=== PATIENT | female | born 1945 | race Caucasian/White ===

== ENCOUNTER → 2016-08-27 | Outpatient (CLI) | payer MEDICARE, OTHER ==
--- NOTE | 2016-08-27 09:34 | CT ---
EXAMINATION TYPE: CT brain wo con DATE OF EXAM: 08/27/2016 7:39 AM COMPARISON: NONE HISTORY: 71-year-old female with migraine headaches TECHNIQUE: Examination was done in axial plane without intravenous contrast. Coronal and sagittal r econstructions performed. CT DLP: 1098.80 mGycm Automated exposure control for dose reduction was used. FINDINGS: There is a prior left lateral craniotomy flap. Mild cerebral cortical volume loss. 2.5 cm area of CSF prominence along the median, left paramedian r etrocerebellar region. There is no evidence of acute intracranial hemorrhage, acute ischemic changes, mass effect, or extra -axial fluid collection. There is no effacement of cerebral sulci or basal subarachnoid cisterns. T here is no hydrocephalus. There is no midline shift. Hatch-white matter distinction is preserved. Paranasal sinuses and mastoid air cells are well pneumatized. Orbits and globes are intact. Rightward nasal septal deviation noted IMPRESSION: 1. Prior left lateral craniotomy flap. Clinically correlate. No acute intracranial abnormality seen. 2. Mild generalized cerebral cortical atrophy. 3. 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
== END | disposition home or self-care (01) ==
LOC: RADCTMAIN 07:11
PROVIDERS: ATTEND Family Medicine
DX: G31.9 Degenerative disease of nervous system, unspecified (principal); G43.909 Migraine, unspecified, not intractable, without status migrainosus
CPT/HCPCS: 70450

== ENCOUNTER → 2018-01-24 | Outpatient (CLI) | payer MEDICARE, OTHER ==
[2018-01-24 09:53] LABS: HCT 41.3 % (34.0-46.0); Hypochromasia Slight; MCHC 31.5 g/dL (31.0-37.0); MCV 85.8 fL (80.0-100.0); Mean Platelet Volume 7.4; Platelet Count 232 k/uL (150-450); RBC 4.82 m/uL (3.80-5.40); RDW 14.2 % (11.5-15.5); WBC 6.7 k/uL (3.8-10.6)
[2018-01-24 10:07] LABS: ALT 16 U/L (9-52); AST 22 U/L (14-36); Albumin 3.7 g/dL (3.5-5.0); Alkaline Phosphatase 134 U/L (38-126); Anion Gap 9 mmol/L; Blood Urea Nitrogen 16 mg/dL (7-17); Calcium 9.3 mg/dL (8.4-10.2); Carbon Dioxide 27 mmol/L (22-30); Chloride 107 mmol/L (98-107); Cholesterol 166 mg/dL (<200); Glucose 87 mg/dL (74-99); HDL Cholesterol 48 mg/dL (40-60); LDL Cholesterol,Calculated 90 mg/dL (0-99); Potassium 4.3 mmol/L (3.5-5.1); Sodium 143 mmol/L (137-145); Total Bilirubin 0.5 mg/dL (0.2-1.3); Total Protein 6.9 g/dL (6.3-8.2); Triglycerides 141 mg/dL (<150)
[2018-01-24 10:23] LABS: T4, Free (Free Thyroxine) 1.13 ng/dL (0.78-2.19)
[2018-01-24 18:16] LABS: Hemoglobin A1C 5.7 % (4.0-6.0)
== END | disposition home or self-care (01) ==
LOC: LABWHC1 08:17
PROVIDERS: ATTEND Family Medicine
DX: E78.5 Hyperlipidemia, unspecified (principal); E11.9 Type 2 diabetes mellitus without complications; E66.01 Morbid (severe) obesity due to excess calories; I10 Essential (primary) hypertension
CPT/HCPCS: 36415; 80053; 80061; 83036; 84439; 84443; 85027

== ENCOUNTER → 2022-05-08 | Outpatient (CLI) | payer MEDICARE ==
--- NOTE | 2022-05-08 11:45 | MM ---
Reason for Exam: Screening (asymptomatic). Last mammogram was performed 10 year(s) and 0 month(s) ago. Patient History: Menarche at age 14. First Full-Term at age 22. Hysterectomy at age 34. Patient used Estrogen for 2 years. Maternal aunt had breast cancer. Maternal aunt had breast cancer. Maternal aunt had breast cancer. Risk Values: Pat 5 year model risk: 1.6%. NCI Lifetime model risk: 3.7%. Prior Study Comparison: 01/04/2010 Bilateral Screening Mammogram, [facility]. 01/12/2010 Right Diagnostic Mammogram, [facility]. 05/15/2012 Bilateral Screening Mammogram, [facility]. Tissue Density: The breast tissue is heterogeneously dense. This may lower the sensitivity of mammography. Findings: Analyzed By CAD. Multiple suspicious masses are seen within the breasts. * On the right in the upper outer quadrant anterior depth 6-7 cm from the nipple spiculated mass measuring up to 3.0 cm. There are grouped suspicious calcifications projecting over this mass. * On the left posterior depth in the axilla approximately 18 cm from the nipple. Mass projecting over a lymph node. * On the left posterior depth posterior nipple line approximately 10 cm from the nipple is a spiculated mass partially in the [id number] measuring up to 2.1 cm. Overall Assessment: Incomplete: need additional imaging evaluation, BI-RAD 0 Management: Diagnostic Mammogram of both breasts. Diagnostic Breast Ultrasound of both breasts. Bilateral suspicious breast masses. Further evaluation with ultrasound and mammogram is recommended. A clinical breast exam by your physician is recommended on an annual basis and results should be correlated with mammographic findings. [facility] will attempt to contact patient to return for supplemental views and ultrasound if indicated. Electronically signed and approved by: Marcos Smith DO
--- NOTE | 2022-05-08 13:14 | USB ---
Reason for Exam: Additional evaluation requested from abnormal screening. Patient History: Menarche at age 14. First Full-Term at age 22. Hysterectomy at age 34. Patient used Estrogen for 2 years. Maternal aunt had breast cancer. Maternal aunt had breast cancer. Maternal aunt had breast cancer. Risk Values: Pat 5 year model risk: 1.6%. NCI Lifetime model risk: 3.7%. Technique: Method: Whole Breast Handheld. Prior Study Comparison: 01/04/2010 Bilateral Screening Mammogram, [facility]. 01/12/2010 Right Diagnostic Mammogram, [facility]. 05/15/2012 Bilateral Screening Mammogram, [facility]. Findings: The whole breast of both breasts, the axilla of both breasts and the retroareolar of both breasts were scanned. LEFT BREAST: * Area of concern near the inframammary fold near the patient's chest was not well evaluated due to patient's body habitus. Approximately 5-6 o'clock 10 cm from the nipple is a irregular well-circumscribed mass with indistinct borders with posterior acoustic shadowing measuring at least 28 x 18 mm.(BIOPSY RECOMMENDED) * 12:00 1 to 2 cm from nipple is a irregular hypoechoic lesion with angular margins measuring 8 x 7 x 6 mm. (BIOPSY RECOMMENDED) * Left axillary suspicious lymph node with cortical thickening measuring up to 7 mm. (BIOPSY RECOMMENDED) * Adjacent to this lymph node hypoechoic ill-defined irregular shaped not well circumscribed mass with posterior acoustic shadowing measuring 18 x 14 x 13 mm. RIGHT BREAST: * 1:00 4 cm from nipple hypoechoic nonvascular lesion measuring 10 x 4 x 5 mm which may represent a dilated duct. * 3:00 3 cm from nipple heterogenous mass with somewhat irregular borders measuring 8 x 5 x 7 mm with desmoplastic reaction. This likely correlates with medial lesion seen on mammography. (BIOPSY RECOMMENDED) * 9:00 6 cm from nipple is a hypoechoic heterogenous ill-defined microlobulated border lesion measuring 32 x 20 x 25 mm with posterior acoustic shadowing and surrounding desmoplastic reaction. (BIOPSY RECOMMENDED) * A inferior medial lesion measuring 7 mm and 9 cm from the nipple on mammography is not definitively visualized on ultrasound. Overall Assessment: Highly suggestive of malignancy, BI-RAD 5 Management: Surgical Consultation of both breasts. Ultrasound Core Biopsy of both breasts. Recommendations: * 3 Site US Biopsy on Left. (See comments above) * 2 Site US Biopsy on Right. (See comments above) * Surgical Consultation * Additional work up for metastatic disease given extent of disease. A clinical breast exam by your physician is recommended on an annual basis and results should be correlated with mammographic findings. This exam should not preclude additional follow-up of suspicious palpable abnormalities. Results were given to the patient verbally at the time of exam. Electronically signed and approved by: DO ALEXANDER Gray
--- NOTE | 2022-05-08 13:15 | MM ---
Reason for Exam: Additional evaluation requested from abnormal screening. Last mammogram was performed 10 year(s) and 0 month(s) ago. Patient History: Menarche at age 14. First Full-Term at age 22. Hysterectomy at age 34. Patient used Estrogen for 2 years. Maternal aunt had breast cancer. Maternal aunt had breast cancer. Maternal aunt had breast cancer. Risk Values: Pat 5 year model risk: 1.6%. NCI Lifetime model risk: 3.7%. Prior Study Comparison: 01/12/2010 Right Diagnostic Mammogram, [facility]. 05/15/2012 Bilateral Screening Mammogram, [facility]. Tissue Density: The breast tissue is heterogeneously dense. This may lower the sensitivity of mammography. Findings: Analyzed By CAD. Redemonstration of masses seen on same day screening. Multiple suspicious masses are seen within the breasts. * On the right in the upper outer quadrant anterior depth 6-7 cm from the nipple spiculated mass measuring up to 3.0 cm. There are grouped suspicious calcifications projecting over this mass. * On the left posterior depth in the axilla approximately 18 cm from the nipple. Mass projecting over a lymph node. * On the left posterior depth posterior nipple line approximately 10 cm from the nipple is a spiculated mass partially in the [id number] measuring up to 2.1 cm. Overall Assessment: Incomplete: need additional imaging evaluation, BI-RAD 0 Management: Diagnostic Breast Ultrasound of both breasts. These lesions are highly suspicious for malignancy BI-RADS 5. For complete workup, whole breast bilateral ultrasounds will be performed. A clinical breast exam by your physician is recommended on an annual basis and results should be correlated with mammographic findings. This exam should not preclude additional follow-up of suspicious palpable abnormalities. Results were given to the patient verbally at the time of exam. Electronically signed and approved by: Marcos Smith DO
== END | disposition home or self-care (01) ==
LOC: RADMAMWWP 10:38
PROVIDERS: ATTEND Family Medicine
DX: Z12.31 Encounter for screening mammogram for malignant neoplasm of breast (principal); N64.89 Other specified disorders of breast; Z98.890 Other specified postprocedural states; Z80.3 Family history of malignant neoplasm of breast
CPT/HCPCS: 77067; 77066; 77063; 76641; G0279; 77062

== ENCOUNTER → 2022-05-22 | Day surgery (SDC) | payer MEDICARE ==
--- NOTE | 2022-05-27 08:47 | MM ---
Reason for Exam: Post Procedure Mammogram. Last screening mammogram was performed less than 1 month ago. Patient History: Menarche at age 14. First Full-Term at age 22. Hysterectomy at age 34. Patient used Estrogen for 2 years. Maternal aunt had breast cancer. Maternal aunt had breast cancer. Maternal aunt had breast cancer. Risk Values: Pat 5 year model risk: 1.6%. NCI Lifetime model risk: 3.7%. Prior Study Comparison: 05/15/2012 Bilateral Screening Mammogram, [facility]. 05/08/2022 Bilateral MG 3D work up w/cad DIVYA, [facility]. 05/08/2022 Bilateral US breast workup DIVYA, [facility]. 05/08/2022 Bilateral MG 3D screening mammo w/cad, [facility]. Tissue Density: Right: The breast tissue is heterogeneously dense. This may lower the sensitivity of mammography. Pathology Description: Location: 3 o'clock, anterior. Marker Left Behind. Needle Type: Mammotome Cores: 5 Gauge: 13 The procedure of ultrasound guided core biopsy was explained to the patient. Benefits, alternatives, and risks were discussed. An informed consent was then obtained. The patient was placed in supine positioning for imaging and for the procedure. The overlying skin was prepped and draped in usual sterile fashion. Lidocaine buffered with epinephrine was used as anesthetic into the skin and subcutaneous tissue up to area of concern in the medial right breast. Under ultrasound guidance, a 12-gauge vacuum assisted biopsy gun device was used to obtain 5 core samples. Following this, a biopsy clip was left in lesion. Following this attention was turned towards the 9:00 right breast lesion with overlying skin was prepped in sterile fashion with lidocaine buffered with epinephrine was used as anesthetic into the skin and subcutaneous tissue up to the area of concern. Under ultrasound guidance, a 12-gauge vacuum-assisted biopsy gun device was used to obtain 7 core samples of the 9:00 right breast lesion. The patient tolerated the procedure well without any immediate complication. The patient was kept in the radiology department for short stay after the procedure and then discharged home in stable condition. Postprocedure mammogram: The patient was transferred to mammography for physician ordered post procedure mammogram for clip placement verification. The right breast mammogram demonstrates the biopsy clips to be in appropriate position. Impression: Successful, uncomplicated to site ultrasound guided core biopsies of areas of concern in the right breast, full pathology results to follow. Pathology Results: Result: Malignant, Invasive ductal carcinoma. A. RIGHT BREAST, THREE O'CLOCK, ULTRASOUND GUIDED NEEDLE CORE BIOPSY: Invasive moderately differentiated ductal carcinoma (Grade 2). See Surgical Pathology Cancer Case Summary. B. RIGHT BREAST, NINE O'CLOCK, ULTRASOUND GUIDED NEEDLE CORE BIOPSY: Invasive moderately differentiated ductal carcinoma (Grade 2). See Surgical Pathology Cancer Case Summary. Pathology Description: Location: 9 o'clock. Marker Left Behind. Cores: 7 Gauge: 13 Overall Assessment: Malignant Assessment: MG diagnostic mammo RT wo CAD - Right: Known biopsy proven malignancy, BI-RAD 6. Management: Surgical Consultation of the right breast. Electronically signed and approved by: Marshall Rodriguez D.O.
== END ==
LOC: RADUSWWP 07:42
PROVIDERS: ATTEND Surgery
DX: C50.811 Malignant neoplasm of overlapping sites of right female breast (principal)
CPT/HCPCS: 88305; 88342; 88341; 77065; 19083; 19084; A4648

== ENCOUNTER 2022-10-19 20:00 | Inpatient (IN) | payer MEDICARE, OTHER ==
[2022-10-19] MEDS ORDERED: SODIUM CHLORIDE 0.9% 500 ML 500 ML IV ONE (20:53)
[2022-10-19] MEDS ORDERED: HYDROmorphone 0.5 MG/0.5 ML SYRINGE IVP STA (20:53)
[2022-10-19] MEDS ORDERED: VANCOMYCIN IV PER PHARMACY 1 EACH MISC MISCELLANE PRN (20:54)
[2022-10-19] MEDS ORDERED: NALOXONE 0.4 MG/ML 1 ML VIAL IV PRN (20:56)
--- NOTE | 2022-10-19 21:04 | ED ---
General Adult HPI - General Chief complaint: Extremity Injury, Lower Stated complaint: Knee infection Time Seen by Provider: 10/19/22 20:31 Source: patient, RN notes reviewed, old records reviewed Mode of arrival: ambulatory Limitations: no limitations - History of Present Illness Initial comments: 77-year-old female presents for evaluation of pain and swelling in the right lower extremity. Patient's symptoms began one week ago. She was seen by her primary care physician and prescribed Bactrim. She had been on this antibiotic for the past 5 days over the past 24 hours the erythema and swelling significantly increased and there was a yellow blister on the anterior surface of the martin just below the knee. She has a previous knee replacement done [facility], she is unable to remember the physician's name. She denies fever or systemic symptoms. She does have pain and limitation in range of motion of the knee but states this is baseline for her. - Related Data Home Medications Medication Instructions Recorded Confirmed Bisoprolol-Hctz 5-6.25 mg [Ziac 1 each PO QAM 06/05/14 05/09/22 5-6.25 MG] Furosemide [Lasix] 20 mg PO QAM 06/05/14 05/09/22 Simvastatin [Zocor] 40 mg PO HS 06/05/14 05/09/22 Cholecalciferol (Vitamin D3) 125 mcg PO DAILY 05/09/22 05/09/22 [Vitamin D3 (125 MCG = 5,000 IU)] Losartan [Cozaar] 50 mg PO BID 05/09/22 05/09/22 Omeprazole 20 mg PO HS 05/09/22 05/09/22 Allergies Allergy/AdvReac Type Severity Reaction Status Date / Time No Known Allergies Allergy Verified 05/09/22 12:11 Review of Systems ROS Statement: Those systems with pertinent positive or pertinent negative responses have been documented in the HPI. ROS Other: All systems not noted in ROS Statement are negative. Past Medical History Past Medical History: Diabetes Mellitus, Hyperlipidemia, Hypertension, Osteoarthritis (OA) Additional Past Medical History / Comment(s): Heart Murmur. HIATAL HERNIA. History of Any Multi-Drug Resistant Organisms: None Reported Past Surgical History: Section, Cholecystectomy, Hysterectomy, Joint Replacement Additional Past Surgical History / Comment(s): Jeffrey Knee Replacement, brain BENIGN tumor removed 2000 Past Anesthesia/Blood Transfusion Reactions: Postoperative Nausea & Vomiting (PONV) Past Psychological History: No Psychological Hx Reported Smoking Status: Never smoker Past Alcohol Use History: None Reported Past Drug Use History: None Reported - Past Family History Father Family Medical History: Cancer, Myocardial Infarction (CO) Additional Family Medical History / Comment(s): Bladder CA Mother Family Medical History: Cancer, Coronary Artery Disease (CAD), Myocardial Infarction (CO) Additional Family Medical History / Comment(s): Stomach CA General Exam Limitations: no limitations General appearance: alert, in no apparent distress Head exam: Present: atraumatic, normocephalic Eye exam: Present: normal appearance, PERRL Neck exam: Present: normal inspection. Absent: tenderness Respiratory exam: Present: normal lung sounds bilaterally. Absent: respiratory distress, wheezes Cardiovascular Exam: Present: regular rate, normal rhythm GI/Abdominal exam: Present: soft. Absent: distended, tenderness Extremities exam: Present: calf tenderness, other (Significant soft tissue swelling and induration and erythema from the knee to the ankle. At the base of the surgical incision there was a small 3 mm blister with yellow purulence.) Course Vital Signs 10/19/22 20:23 Temperature 98.8 F Pulse Rate 78 Respiratory 18 Rate Blood Pressure 107/70 O2 Sat by Pulse 97 Oximetry - Reevaluation(s) Reevaluation #1: 10/19/22 21:00 There was a yellow blister approximately 3 mm at the base of the previous surgical incision. I was able to obtain culture and at the time of Xochitl the blister there was significant purulence and approximately 60 mL of iris pus freely flowed from a 3 mm opening. Incision and drainage was not performed. Medical Decision Making - Medical Decision Making Was pt. sent in by a medical professional or institution (, PA, GUN STOCK CHECKER, urgent care, hospital, or skilled nursing...) When possible be specific @ -[No] Did you speak to anyone other than the patient for history (EMS, parent, family, police, friend...)? What history was obtained from this source @ -Patient's daughter Did you review nursing and triage notes (agree or disagree)? Why? @ -[I reviewed and agree with nursing and triage notes] Were old charts reviewed (outside hosp., previous admission, EMS record, old EKG, old radiological studies, urgent care reports/EKG's, skilled nursing records)? Report findings @ -[No old charts were reviewed] Differential Diagnosis (chest pain, altered mental status, abdominal pain women, abdominal pain men, vaginal bleeding, weakness, fever, dyspnea, syncope, headache, dizziness, GI bleed, back pain, seizure, CVA, palpatations, mental health, musculoskeletal)? @ -Cellulitis, abscess, septic arthritis EKG interpreted by me (3pts min.). @ -[As above] X-rays interpreted by me (1pt min.). @ -[None done] CT interpreted by me (1pt min.). @ -[None done] U/S interpreted by me (1pt. min.). @ -[Ultrasound performed, results pending What testing was considered but not performed or refused? (CT, X-rays, U/S, labs)? Why? @ -[None] What meds were considered but not given or refused? Why? @ -[None] Did you discuss the management of the patient with other professionals (professionals i.e. , PA, GUN STOCK CHECKER, lab, RT, psych nurse, dialysis social worker, sheriff officer, teacher, protection officer, dependency case manager)? Give summary @ -[EMH Was smoking cessation discussed for >3mins.? @ -[No] Was critical care preformed (if so, how long)? @ -[No] Were there social determinants of health that impacted care today? How? (Homelessness, low income, unemployed, alcoholism, drug addiction, transportation, low edu. Level, literacy, decrease access to med. care, fci, rehab)? @ -[No] Was there de-escalation of care discussed even if they declined (Discuss DNR or withdrawal of care, Hospice)? DNR status @ -[No] What co-morbidities impacted this encounter? (DM, HTN, Smoking, COPD, CAD, Cancer, CVA, ARF, Chemo, Hep., AIDS, mental health diagnosis, sleep apnea, morbid obesity)? @Hypertension Was patient admitted / discharged? Hospital course, mention meds given and route, prescriptions, significant lab abnormalities, going to OR and other pertinent info. @ -[77-year-old female presenting with 1 week of pain and swelling to the right lower extremity. There is significant infection in the right leg from the knee to the ankle with this soft tissue swelling and induration, erythema, and freely flowing. Once from the small opening in the inferior edge of previous surgical incision. Patient is nontoxic, afebrile. CBC, CMP, lactic acid, blood cultures and wound cultures are ordered. The patient started on Zosyn and vancomycin in the emergency partner. Undiagnosed new problem with uncertain prognosis? @ -[No] Drug Therapy requiring intensive monitoring for toxicity (Heparin, Nitro, Insulin, Cardizem)? @ -[No] Were any procedures done? @ -[No] Diagnosis/symptom? @ -Right lower tremor cellulitis and abscess Acute, or Chronic, or Acute on Chronic? @ -[Acute Uncomplicated (without systemic symptoms) or Complicated (systemic symptoms)? @ -[Complicated Side effects of treatment? @ -[No] Exacerbation, Progression, or Severe Exacerbation? @ -[No] Poses a threat to life or bodily function? How? (Chest pain, [place], CO, pneumonia, PE, COPD, DKA, ARF, appy, cholecystitis, CVA, Diverticulitis, Homicidal, Suicidal, threat to staff... and all critical care pts) @ -Yes, sepsis Disposition Clinical Impression: Abscess, Cellulitis Disposition: ADMITTED IP TO THIS HOSP Condition: Stable Is patient prescribed a controlled substance at d/c from ED?: No Referrals: Arturo Collado DO [Primary Care Provider] - 1-2 days Time of Disposition: 21:03
[2022-10-19] MEDS ORDERED: VANCOMYCIN 1,750 MG in SODIUM CHLORIDE 0.9% 500 ML 500 ML IVPB ONE (21:15)
[2022-10-19 21:29] LABS: Basophils % (A) 0 %; Eosinophils # (A) 0.2 k/uL (0-0.7); Eosinophils % (A) 1 %; HCT 35.3 % (34.0-46.0); HGB 11.3 gm/dL (11.4-16.0); Lymphocytes # (A) 1.3 k/uL (1.0-4.8); Lymphocytes % (A) 8 %; MCH 28.8 pg (25.0-35.0); MCV 89.9 fL (80.0-100.0); Mean Platelet Volume 7.6; Monocytes # (A) 0.5 k/uL (0-1.0); Monocytes % (A) 3 %; Neutrophils # (A) 14.9 k/uL (1.3-7.7); Neutrophils % (A) 88 %; Platelet Count 579 k/uL (150-450); RBC 3.93 m/uL (3.80-5.40); RDW 14.1 % (11.5-15.5); WBC 17.1 k/uL (3.8-10.6)
[2022-10-19] MEDS: PIPERACILLIN-TAZOBACTAM 3.375 GM in SODIUM CHLORIDE 0.9% 100 ML IVPB SCH (21:37)
[2022-10-19] MEDS: ACETAMINOPHEN TAB 325 MG TAB PO PRN (21:39)
[2022-10-19 21:42] LABS: ALT 36 U/L (4-34); AST 55 U/L (14-36); African American GFR (CKD) 43 (>60 ml/min/1.73 sqM); Albumin 3.1 g/dL (3.5-5.0); Alkaline Phosphatase 233 U/L (38-126); Anion Gap 10 mmol/L; Blood Urea Nitrogen 22 mg/dL (7-17); Calcium 8.6 mg/dL (8.4-10.2); Carbon Dioxide 23 mmol/L (22-30); Chloride 99 mmol/L (98-107); Glucose 128 mg/dL (74-99); Non-African American GFR(CKD) 37 (>60 ml/min/1.73 sqM); Potassium 4.9 mmol/L (3.5-5.1); Sodium 132 mmol/L (137-145); Total Bilirubin 0.5 mg/dL (0.2-1.3); Total Protein 6.3 g/dL (6.3-8.2)
[2022-10-19] MEDS: SODIUM CHLORIDE 0.9% 1,000 ML IV SCH (22:59)
--- NOTE | 2022-10-19 23:19 | US ---
EXAMINATION TYPE: US venous doppler duplex LE RT DATE OF EXAM: 10/19/2022 11:04 PM COMPARISON: US 2012 CLINICAL INDICATION: Female, 77 years old with history of swelling; Swelling. No hx of DVT. Patient d oes not take blood thinners. SIDE PERFORMED: Right TECHNIQUE: The lower extremity deep venous system is examined utilizing real time linear array sonog krishan with graded compression, doppler sonography and color-flow sonography. VESSELS IMAGED: Common Femoral Vein Deep Femoral Vein Greater Saphenous Vein * Femoral Vein Popliteal Vein Small Saphenous Vein * (* superficial vessels) Right Leg: Duplicate mid and distal femoral vein noted. No evidence of DVT, however exam is extremel y limited due to patient body habitus and edema. Patient could not tolerate compression of distal femoral vein. Unable to turn transducer in sagittal behind the knee. Limited color imaging performed of popliteal v ein in transverse. Compressions not performed of popliteal vein-unable to visualize vessel in this vi ew without color on. Calf veins not visualized. IMPRESSION: 1. Limited examination. 2. Within the visualized right lower extremity venous structures, no deep venous thrombosis identifie d.
[2022-10-20] MEDS: PIPERACILLIN-TAZOBACTAM 3.375 GM in SODIUM CHLORIDE 0.9% 100 ML IVPB SCH ×2 (01:25→08:38)
[2022-10-20] MEDS: SODIUM CHLORIDE 0.9% 1,000 ML IV SCH ×2 (08:39→17:49)
[2022-10-20] MEDS: HEPARIN SODIUM,PORCINE/PF 5,000 UNIT/0.5 ML SYRINGE SQ SCH ×2 (08:39→21:17)
[2022-10-20] MEDS: BISOPROLOL-HCTZ 5-6.25 MG 1 EACH TAB PO SCH (08:53)
[2022-10-20] MEDS: FUROSEMIDE 20 MG TAB PO SCH (08:53)
[2022-10-20] MEDS: LETROZOLE 2.5 MG TAB PO SCH (08:53)
[2022-10-20] MEDS: CHOLECALCIFEROL 125 MCG (5000 IU) TABLET PO SCH (08:53)
[2022-10-20] MEDS ORDERED: FAMOTIDINE 20 MG/2 ML VIAL IV SCH (09:00)
--- NOTE | 2022-10-20 11:37 | P.HPIM ---
History of Present Illness This is a pleasant 77 years old female with past medical history of Diabetes Mellitus, Hyperlipidemia, Hypertension, Osteoarthritis Patient presents because of right leg redness and swelling and warmth involving the whole area from knee to the ankle. With large ruptured superficial blister in the upper part. She denies any other symptoms She denies smoking alcohol or illicit drugs Patient has leukocytosis of 17.1 and her platelet count 579 Sodium 132, creatinine 1.3, baseline 1 Liver enzymes mildly elevated Ultrasound negative for DVT in the right leg In the emergency room patient was started on Zosyn and IV vancomycin and admitted with ID and surgical team consult Review of Systems Review of systems CONSTITUTIONAL: No fever, no malaise, no fatigue. HEENT: No recent visual problems or hearing problems. Denied any sore throat. CARDIOVASCULAR: No orthopnea, PND, no palpitations, no syncope. PULMONARY: No shortness of breath, no cough, no hemoptysis. GASTROINTESTINAL: No diarrhea, no nausea, no vomiting, no abdominal pain. Normoactive bowel sounds. NEUROLOGICAL: No headaches, no weakness, no numbness. HEMATOLOGICAL: Denies any bleeding or petechiae. GENITOURINARY: Denies any burning micturition, frequency, or urgency. MUSCULOSKELETAL/RHEUMATOLOGICAL: Denies any joint pain, swelling, or any muscle pain. ENDOCRINE: Denies any polyuria or polydipsia. Past Medical History Past Medical History: Diabetes Mellitus, Hyperlipidemia, Hypertension, Osteoarthritis (OA) Additional Past Medical History / Comment(s): Heart Murmur. HIATAL HERNIA. History of Any Multi-Drug Resistant Organisms: None Reported Past Surgical History: Section, Cholecystectomy, Hysterectomy, Joint Replacement Additional Past Surgical History / Comment(s): Jeffrey Knee Replacement, brain BENIGN tumor removed 2000 Past Anesthesia/Blood Transfusion Reactions: Postoperative Nausea & Vomiting (PONV) Past Psychological History: No Psychological Hx Reported Smoking Status: Never smoker Past Alcohol Use History: None Reported Past Drug Use History: None Reported - Past Family History Father Family Medical History: Cancer, Myocardial Infarction ([place]) Additional Family Medical History / Comment(s): Bladder CA Mother Family Medical History: Cancer, Coronary Artery Disease (CAD), Myocardial Infarction ([place]) Additional Family Medical History / Comment(s): Stomach CA Medications and Allergies Home Medications Medication Instructions Recorded Confirmed Type Bisoprolol-Hctz 5-6.25 mg [Ziac 1 tab PO DAILY 06/05/14 10/19/22 History 5-6.25 MG] Furosemide [Lasix] 20 mg PO DAILY 06/05/14 10/19/22 History Simvastatin [Zocor] 40 mg PO HS 06/05/14 10/19/22 History Cholecalciferol (Vitamin D3) 125 mcg PO DAILY 05/09/22 10/19/22 History [Vitamin D3 (125 MCG = 5,000 IU)] Losartan [Cozaar] 50 mg PO DAILY 05/09/22 10/19/22 History Omeprazole 20 mg PO HS 05/09/22 10/19/22 History Calcium Carbonate [Calcium] 600 mg PO BID 10/19/22 10/19/22 History Letrozole [Femara] 2.5 mg PO DAILY 10/19/22 10/19/22 History Magnesium 250 mg PO DAILY 10/19/22 10/19/22 History Nystatin 100,000 Unit/gm Powd 1 applic TOPICAL BID PRN 10/19/22 10/19/22 History [Mycostatin Powder] SILVER sulfADIAZINE CREAM 1 applic TOPICAL BID 10/19/22 10/19/22 History [Silvadene Cream] Sulfamethox-Tmp 800-160Mg [Bactrim 1 tab PO Q12HR 10/19/22 10/19/22 History DS 800-160 mg] Vit C/E/Zn/Coppr/Lutein/Zeaxan 1 cap PO BID 10/19/22 10/19/22 History [Preservision Areds 2 Softgel] Allergies Allergy/AdvReac Type Severity Reaction Status Date / Time No Known Allergies Allergy Verified 10/19/22 22:40 Physical Exam Vitals: Vital Signs Temp Pulse Pulse Resp BP BP Pulse Ox 10/20/22 07:26 97.6 F 61 18 107/68 97 10/20/22 04:00 97.7 F 70 20 147/70 98 10/20/22 02:52 97.3 F L 54 L 18 97/72 98 10/19/22 22:54 98.0 F 64 16 102/51 98 10/19/22 21:26 99.1 F 68 15 102/51 98 10/19/22 20:23 98.8 F 78 18 107/70 97 Intake and Output 06/24/23 06/25/23 06/25/23 22:59 06:59 14:59 Other: # Voids 1 Weight 112.491 kg 112.491 kg GENERAL: The patient is alert and oriented x3, not in any acute distress. Well developed, well nourished. HEENT: Pupils are round and equally reacting to light. EOMI. No scleral icterus. No conjunctival pallor. Normocephalic, atraumatic. No pharyngeal erythema. No thyromegaly. CARDIOVASCULAR: S1 and S2 present. No murmurs, rubs, or gallops. PULMONARY: Chest is clear to auscultation, no wheezing , no crackles. ABDOMEN: Soft, nontender, nondistended, normoactive bowel sounds. No palpable organomegaly. MUSCULOSKELETAL: No joint swelling or deformity. -EXTREMITIES: No cyanosis, clubbing, or pedal edema. Right leg cellulitis with redness swelling tenderness after superficial blister NEUROLOGICAL: Gross neurological examination did not reveal any focal deficits. SKIN: No rashes. no petechiae. Results CBC & Chem 7: 10/19/22 21:00 10/19/22 21:00 Labs: Abnormal Lab Results - Last 24 Hours (Table) 10/19/22 10/19/22 Range/Units 21:00 21:00 WBC 17.1 H (3.8-10.6) k/uL Hgb 11.3 L (11.4-16.0) gm/dL Plt Count 579 H (150-450) k/uL Neutrophils # 14.9 H (1.3-7.7) k/uL Sodium 132 L (137-145) mmol/L BUN 22 H (7-17) mg/dL Creatinine 1.38 H (0.52-1.04) mg/dL Glucose 128 H (74-99) mg/dL AST 55 H (14-36) U/L ALT 36 H (4-34) U/L Alkaline Phosphatase 233 H (38-126) U/L Albumin 3.1 L (3.5-5.0) g/dL Thrombosis Risk Factor Assmnt - Choose All That Apply Any of the Below Risk Factors Present?: Yes Each Factor Represents 1 point: Obesity (BMI >25), Swollen legs (current) Other Risk Factors: Yes Each Risk Factor Represents 3 Points: Age 75 years or older Other congenital or acquired thrombophilia - If yes, enter type in comment: No Thrombosis Risk Factor Assessment Total Risk Factor Score: 5 Thrombosis Risk Factor Assessment Level: High Risk Assessment and Plan Assessment: Acute right lower extremity cellulitis and abscess Mild acute kidney injury secondary to dehydration Hypovolemic hyponatremia mild transaminitis Diabetes mellitus Hypertension Hyperlipidemia History of osteoarthritis Hypothyroidism Orbital obesity BMI 53 Plan: Continue with IV antibiotics as per ID team, currently on IV vancomycin, change Zosyn to cefazolin Continue with normal saline at 100 mL per hour Infectious and vascular surgery team consult Follow-up culture results Hold lisinopril on monitor blood pressure Repeat labs in the morning Labs and medication were reviewed.. Continue same treatment. Continue with symptomatic treatment. Resume home medication. Monitor labs and vitals. DVT and GI prophylaxis. Further recommendations as per clinical course of the patient DVT prophylaxis: Subcutaneous heparin GI Prophylaxis: Pepcid PT/OT: Pending Prognosis is guarded Dr. Collado will resume the care of the patient tomorrow
[2022-10-20] MEDS: SILVER sulfADIAZINE Cream 400 GM 1 APPLIC APPLIC TOPICAL SCH (14:38)
--- NOTE | 2022-10-20 15:05 | P.GSCN ---
History of Present Illness History of present illness: History of hypertension no history of coronary artery disease no history of congestive heart failure Neck is supple no bruit appreciated ultrasound wound on occlusive suggestive no evidence of DVT at this point patient has history of obesity White cell count is 70,000 patient had a blister at the knee area which has been opened up toe history of claudication rest pain no history of trauma Neck is supple no bruit appreciated Chest is clear few rhonchi at the lung bases patient has a nasal oxygen Abdomen is protuberant no pertinent sign noted Femorals are 1+ patient has cellulitis of the right lower extremity no calf tenderness noted right foot is warm Impression is cellulitis of the right lower extremity patient is an IV antibiotic we(use Silvadene cream with the compression wrap 2 pillow elevation we will follow with you Past Medical History Past Medical History: Diabetes Mellitus, Hyperlipidemia, Hypertension, Osteoarthritis (OA) Additional Past Medical History / Comment(s): Heart Murmur. HIATAL HERNIA. History of Any Multi-Drug Resistant Organisms: None Reported Past Surgical History: Section, Cholecystectomy, Hysterectomy, Joint Replacement Additional Past Surgical History / Comment(s): Jeffrey Knee Replacement, brain BENIGN tumor removed 2000 Past Anesthesia/Blood Transfusion Reactions: Postoperative Nausea & Vomiting (PONV) Past Psychological History: No Psychological Hx Reported Smoking Status: Never smoker Past Alcohol Use History: None Reported Past Drug Use History: None Reported - Past Family History Father Family Medical History: Cancer, Myocardial Infarction ([place]) Additional Family Medical History / Comment(s): Bladder CA Mother Family Medical History: Cancer, Coronary Artery Disease (CAD), Myocardial Infarction ([place]) Additional Family Medical History / Comment(s): Stomach CA Medications and Allergies Home Medications Medication Instructions Recorded Confirmed Type Bisoprolol-Hctz 5-6.25 mg [Ziac 1 tab PO DAILY 06/05/14 10/19/22 History 5-6.25 MG] Furosemide [Lasix] 20 mg PO DAILY 06/05/14 10/19/22 History Simvastatin [Zocor] 40 mg PO HS 06/05/14 10/19/22 History Cholecalciferol (Vitamin D3) 125 mcg PO DAILY 05/09/22 10/19/22 History [Vitamin D3 (125 MCG = 5,000 IU)] Losartan [Cozaar] 50 mg PO DAILY 05/09/22 10/19/22 History Omeprazole 20 mg PO HS 05/09/22 10/19/22 History Calcium Carbonate [Calcium] 600 mg PO BID 10/19/22 10/19/22 History Letrozole [Femara] 2.5 mg PO DAILY 10/19/22 10/19/22 History Magnesium 250 mg PO DAILY 10/19/22 10/19/22 History Nystatin 100,000 Unit/gm Powd 1 applic TOPICAL BID PRN 10/19/22 10/19/22 History [Mycostatin Powder] SILVER sulfADIAZINE CREAM 1 applic TOPICAL BID 10/19/22 10/19/22 History [Silvadene Cream] Sulfamethox-Tmp 800-160Mg [Bactrim 1 tab PO Q12HR 10/19/22 10/19/22 History DS 800-160 mg] Vit C/E/Zn/Coppr/Lutein/Zeaxan 1 cap PO BID 10/19/22 10/19/22 History [Preservision Areds 2 Softgel] Allergies Allergy/AdvReac Type Severity Reaction Status Date / Time No Known Allergies Allergy Verified 10/19/22 22:40 Surgical - Exam Vital Signs Temp Pulse Resp BP Pulse Ox 98.8 F 78 18 107/70 97 10/19/22 20:23 10/19/22 20:23 10/19/22 20:23 10/19/22 20:23 10/19/22 20:23 Results - Labs 10/19/22 21:00 10/19/22 21:00 Abnormal Lab Results - Last 24 Hours (Table) 10/19/22 10/19/22 Range/Units 21:00 21:00 WBC 17.1 H (3.8-10.6) k/uL Hgb 11.3 L (11.4-16.0) gm/dL Plt Count 579 H (150-450) k/uL Neutrophils # 14.9 H (1.3-7.7) k/uL Sodium 132 L (137-145) mmol/L BUN 22 H (7-17) mg/dL Creatinine 1.38 H (0.52-1.04) mg/dL Glucose 128 H (74-99) mg/dL AST 55 H (14-36) U/L ALT 36 H (4-34) U/L Alkaline Phosphatase 233 H (38-126) U/L Albumin 3.1 L (3.5-5.0) g/dL Diabetes panel 10/19/22 Range/Units 21:00 Sodium 132 L (137-145) mmol/L Potassium 4.9 (3.5-5.1) mmol/L Chloride 99 (98-107) mmol/L Carbon Dioxide 23 (22-30) mmol/L BUN 22 H (7-17) mg/dL Creatinine 1.38 H (0.52-1.04) mg/dL Glucose 128 H (74-99) mg/dL Calcium 8.6 (8.4-10.2) mg/dL AST 55 H (14-36) U/L ALT 36 H (4-34) U/L Alkaline Phosphatase 233 H (38-126) U/L Total Protein 6.3 (6.3-8.2) g/dL Albumin 3.1 L (3.5-5.0) g/dL Calcium panel 10/19/22 Range/Units 21:00 Calcium 8.6 (8.4-10.2) mg/dL Albumin 3.1 L (3.5-5.0) g/dL Pituitary panel 10/19/22 Range/Units 21:00 Sodium 132 L (137-145) mmol/L Potassium 4.9 (3.5-5.1) mmol/L Chloride 99 (98-107) mmol/L Carbon Dioxide 23 (22-30) mmol/L BUN 22 H (7-17) mg/dL Creatinine 1.38 H (0.52-1.04) mg/dL Glucose 128 H (74-99) mg/dL Calcium 8.6 (8.4-10.2) mg/dL Adrenal panel 10/19/22 Range/Units 21:00 Sodium 132 L (137-145) mmol/L Potassium 4.9 (3.5-5.1) mmol/L Chloride 99 (98-107) mmol/L Carbon Dioxide 23 (22-30) mmol/L BUN 22 H (7-17) mg/dL Creatinine 1.38 H (0.52-1.04) mg/dL Glucose 128 H (74-99) mg/dL Calcium 8.6 (8.4-10.2) mg/dL Total Bilirubin 0.5 (0.2-1.3) mg/dL AST 55 H (14-36) U/L ALT 36 H (4-34) U/L Alkaline Phosphatase 233 H (38-126) U/L Total Protein 6.3 (6.3-8.2) g/dL Albumin 3.1 L (3.5-5.0) g/dL
[2022-10-20] MEDS ORDERED: VANCOMYCIN 1,750 MG in SODIUM CHLORIDE 0.9% 500 ML 500 ML IVPB ONE (16:00)
[2022-10-20] MEDS: ATORVASTATIN 20 MG TAB PO SCH (21:18)
[2022-10-20] MEDS: ACETAMINOPHEN TAB 325 MG TAB PO PRN (22:01)
--- NOTE | 2022-10-20 23:04 | P.CONS ---
History of Present Illness - Reason for Consult Consult date: 10/20/22 Right lower extremity abscess cellulitis Requesting physician: Marcos Gonzalez - Chief Complaint Right leg swelling and redness x few days - History of Present Illness Patient is a 77-year-old female with a past medical history negative for diabetes mellitus hypertension hyperlipidemia osteoarthritis presented to the hospital with increasing pain swelling and redness of right lower extremity apparently patient said that has been going on for about a week and the patient will be treated with the Bactrim in the outpatient setting however the patient does have increasing erythema and swelling and to develop a blister to the right leg for the patient present to the hospital on arrival to the ER the patient was afebrile and no fever headache or subsequently patient did have white, 17.1 with a left shift BUN/creatinine has been mildly elevated enzymes are mildly elevated patient has been given a dose of vancomycin and Zosyn subsequently continue oral vancomycin cefazolin was added infectious disease was consulted for further management of antibiotic therapy patient did mention that her right leg was significantly swollen and right on presented to hospital she did have a sharp pain almost intermittently in severity with no radiation patient did have blister with some yellow fluid drainage, patient denies having any headache or URI symptoms no chest pain shortness of breath cough or abdominal pain and no diarrhea no urinary symptoms Review of Systems Positive point and negatives has been mentioned in the HPI, complete review of systems was performed and all other systems are negative Past Medical History Past Medical History: Diabetes Mellitus, Hyperlipidemia, Hypertension, Osteoarthritis (OA) Additional Past Medical History / Comment(s): Heart Murmur. HIATAL HERNIA. History of Any Multi-Drug Resistant Organisms: None Reported Past Surgical History: Section, Cholecystectomy, Hysterectomy, Joint Replacement Additional Past Surgical History / Comment(s): Jeffrey Knee Replacement, brain BENIGN tumor removed 2000 Past Anesthesia/Blood Transfusion Reactions: Postoperative Nausea & Vomiting (PONV) Past Psychological History: No Psychological Hx Reported Smoking Status: Never smoker Past Alcohol Use History: None Reported Past Drug Use History: None Reported - Past Family History Father Family Medical History: Cancer, Myocardial Infarction ([place]) Additional Family Medical History / Comment(s): Bladder CA Mother Family Medical History: Cancer, Coronary Artery Disease (CAD), Myocardial Infarction ([place]) Additional Family Medical History / Comment(s): Stomach CA Medications and Allergies Home Medications Medication Instructions Recorded Confirmed Type Furosemide [Lasix] 20 mg PO DAILY 02/08/15 06/24/23 History Simvastatin [Zocor] 40 mg PO HS 06/05/14 10/19/22 History Cholecalciferol (Vitamin D3) 125 mcg PO DAILY 05/09/22 10/19/22 History [Vitamin D3 (125 MCG = 5,000 IU)] Omeprazole 20 mg PO HS 05/09/22 10/19/22 History Calcium Carbonate [Calcium] 600 mg PO BID 10/19/22 10/19/22 History Letrozole [Femara] 2.5 mg PO DAILY 10/19/22 10/19/22 History Nystatin 100,000 Unit/gm Powd 1 applic TOPICAL BID PRN 10/19/22 10/19/22 History [Mycostatin Powder] Vit C/E/Zn/Coppr/Lutein/Zeaxan 1 cap PO BID 10/19/22 10/19/22 History [Preservision Areds 2 Softgel] Acetaminophen Tab [Tylenol] 650 mg PO Q6HR PRN tab 10/30/22 Rx Cefepime [Maxipime] 2 gm IVPB Q12H 28 Days #84 each 10/30/22 Rx Magnesium 250 mg PO BID #60 tab 10/30/22 Rx traMADol HCl [Ultram] 50 mg PO Q6H PRN #9 tab 10/30/22 Rx Allergies Allergy/AdvReac Type Severity Reaction Status Date / Time No Known Allergies Allergy Verified 10/19/22 22:40 Physical Exam Vitals: Vital Signs Temp Pulse Pulse Resp BP BP Pulse Ox 10/20/22 13:59 98.0 F 63 19 92/48 98 10/20/22 07:26 97.6 F 61 18 107/68 97 10/20/22 04:00 97.7 F 70 20 147/70 98 10/20/22 02:52 97.3 F L 54 L 18 97/72 98 10/19/22 22:54 98.0 F 64 16 102/51 98 10/19/22 21:26 99.1 F 68 15 102/51 98 10/19/22 20:23 98.8 F 78 18 107/70 97 Intake and Output 10/19/22 10/20/22 10/20/22 22:59 06:59 14:59 Other: Voiding Method Bedside Commode # Voids 1 Weight 112.491 kg 112.491 kg GENERAL DESCRIPTION: Elderly female lying in bed, no distress. No tachypnea or accessory muscle of respiration use. HEENT: Shows Pallor , no scleral icterus. Oral mucous membrane is dry. No pharyngeal erythema or thrush NECK: Trachea central, no thyromegaly. LUNGS: Unlabored breathing. Decreased breath sound at the base HEART: S1, S2, regular rate and rhythm. No loud murmur ABDOMEN: Soft, no tenderness , guarding or rigidity, no organomegaly EXTREMITIES: Right leg has just been dressed by the vascular surgeon mentioning blister and redness no fluctuation SKIN: No rash, no masses palpable. NEUROLOGICAL: The patient is awake, alert, oriented x3, mood and affect normal. Results CBC & Chem 7: 10/29/22 10:51 10/29/22 10:51 Labs: Abnormal Lab Results - Last 24 Hours (Table) 10/19/22 10/19/22 Range/Units 21:00 21:00 WBC 17.1 H (3.8-10.6) k/uL Hgb 11.3 L (11.4-16.0) gm/dL Plt Count 579 H (150-450) k/uL Neutrophils # 14.9 H (1.3-7.7) k/uL Sodium 132 L (137-145) mmol/L BUN 22 H (7-17) mg/dL Creatinine 1.38 H (0.52-1.04) mg/dL Glucose 128 H (74-99) mg/dL AST 55 H (14-36) U/L ALT 36 H (4-34) U/L Alkaline Phosphatase 233 H (38-126) U/L Albumin 3.1 L (3.5-5.0) g/dL Assessment and Plan (1) Cellulitis of right leg Current Visit: Yes Status: Acute Code(s): L03.115 - CELLULITIS OF RIGHT LOWER LIMB SNOMED Code(s): 956805850 Plan: 1patient with acute right lower extremity cellulitis with rapid progression highly characteristic of streptococcal disease in this patient failing outpatient Bactrim DS therapy did have diffuse swelling and blister formation with subsequently has ruptured leading to some superficial ulceration 2-patient with renal insufficiency high risk of nephrotoxicity from vancomycin 3-continue the patient on cefazolin however discontinue vancomycin We will follow on clinical condition and cultures to further adjust medication if needed Thank you for this consultation we will follow the patient along with you Time with Patient: Greater than 30
[2022-10-20] MEDS: HYDROmorphone 0.5 MG/0.5 ML SYRINGE IVP PRN (23:15)
[2022-10-21] MEDS: SODIUM CHLORIDE 0.9% 1,000 ML IV SCH ×2 (03:54→09:07)
[2022-10-21] MEDS: SILVER sulfADIAZINE Cream 400 GM 1 APPLIC APPLIC TOPICAL SCH (05:44)
[2022-10-21 06:07] LABS: African American GFR (CKD) 54 (>60 ml/min/1.73 sqM); Anion Gap 7 mmol/L; Blood Urea Nitrogen 21 mg/dL (7-17); Calcium 8.6 mg/dL (8.4-10.2); Carbon Dioxide 25 mmol/L (22-30); Chloride 105 mmol/L (98-107); Glucose 99 mg/dL (74-99); Non-African American GFR(CKD) 47 (>60 ml/min/1.73 sqM); Potassium 5.7 mmol/L (3.5-5.1); Sodium 137 mmol/L (137-145)
[2022-10-21 06:11] LABS: Vancomycin,Random 19.8 ug/mL
[2022-10-21] MEDS: HYDROmorphone 0.5 MG/0.5 ML SYRINGE IVP PRN ×2 (06:30→18:25)
[2022-10-21] MEDS: FAMOTIDINE 20 MG TAB PO SCH (08:57)
[2022-10-21] MEDS: FUROSEMIDE 20 MG TAB PO SCH (08:57)
[2022-10-21] MEDS: CHOLECALCIFEROL 125 MCG (5000 IU) TABLET PO SCH (08:57)
[2022-10-21] MEDS: HEPARIN SODIUM,PORCINE/PF 5,000 UNIT/0.5 ML SYRINGE SQ SCH ×2 (08:58→20:54)
[2022-10-21] MEDS: BISOPROLOL-HCTZ 5-6.25 MG 1 EACH TAB PO SCH (08:58)
[2022-10-21] MEDS: LETROZOLE 2.5 MG TAB PO SCH (08:58)
[2022-10-21 09:25] LABS: Basophils # (A) 0.06 X 10*3/uL (0.00-0.10); Basophils % (A) 0.5 %; Eosinophils # (A) 0.22 X 10*3/uL (0.04-0.35); Eosinophils % (A) 1.8 %; HCT 34.3 % (37.2-46.3); Lymphocytes # (A) 2.42 X 10*3/uL (0.90-5.00); Lymphocytes % (A) 19.8 %; MCH 28.4 pg (27.0-32.0); MCHC 29.2 d/dL (32.0-37.0); MCV 97.4 FL (80.0-97.0); Mean Platelet Volume 9.9 FL (9.5-12.2); Monocytes # (A) 0.69 X 10*3/uL (0.20-1.00); Monocytes % (A) 5.7 %; NRBC Per 100 WBC 0 X 10*3/uL (0.00-0.01); Neutrophils # (A) 8.58 X 10*3/uL (1.80-7.70); Neutrophils % (A) 70.3 %; Platelet Count 465 X 10*3/uL (140-440); RBC 3.52 X 10*6/uL (4.10-5.20)
[2022-10-21] MEDS: PANTOPRAZOLE 40 MG/10 ML VIAL IVP SCH (14:37)
--- NOTE | 2022-10-21 15:46 | P.PN ---
Progress Note - Text 77-year-old white female patient came with cellulitis the right lower extremity we've been using the IV antibiotic and Silvadene cream this is some improvement we will continue with local wound care and IV antibiotic changed the dressing tomorrow
[2022-10-21] MEDS: ATORVASTATIN 20 MG TAB PO SCH (20:55)
--- NOTE | 2022-10-21 21:46 | P.PN ---
Subjective Progress Note Date: 10/21/22 Principal diagnosis: Right lower extremity cellulitis Patient is a 77-year-old female with a past medical history negative for diabetes mellitus hypertension hyperlipidemia osteoarthritis presented to the hospital with increasing pain swelling and redness of right lower extremity, patient has been diagnosed with right lower extremity cellulitis On today's evaluation that is 10/21/2022, the patient denies having any fever or any chills, patient is breathing comfortably no chest pain or shortness of breath or cough no abdominal pain. The right leg is slightly decreased in intensity Objective - Vital Signs Vital signs: Vital Signs Temp 98.5 F 10/21/22 11:29 Pulse 60 10/21/22 11:29 Resp 16 10/21/22 11:29 BP 93/57 10/21/22 11:29 Pulse Ox 99 10/21/22 11:29 FiO2 Intake & Output 10/20/22 10/21/22 10/21/22 18:59 06:59 18:59 Intake Total 500 220 Balance 500 220 Intake: Intake, IV Titration 500 Amount Piperacillin-Tazobactam 3 100 .375 gm In Sodium Chloride 0.9% 100 ml @ 25 mls/hr IVPB Q8HR SD Rx# :[id number] Sodium Chloride 0.9% 1, 400 000 ml @ 100 mls/hr IV . Q10H SD Rx#:[id number] Oral 220 Other: Voiding Method Bedside Commode Bedside Commode Bedside Commode # Voids 1 1 - Exam GENERAL DESCRIPTION: An elderly female lying in bed in no distress RESPIRATORY SYSTEM: Unlabored breathing , decreased breath sounds at bases HEART: S1 S2 regular rate and rhythm , ABDOMEN: Soft , no tenderness EXTREMITIES: Right leg is currently dressing and Memo wrap no drainage on the dressing - Labs CBC & Chem 7: 10/21/22 05:08 10/21/22 05:08 Labs: Abnormal Lab Results - Last 24 Hours (Table) 10/21/22 10/21/22 Range/Units 05:08 05:08 WBC 12.20 H (4.50-10.00) X 10*3/uL RBC 3.52 L (4.10-5.20) X 10*6/uL Hgb 10.0 L (12.0-15.0) d/dL Hct 34.3 L (37.2-46.3) % MCV 97.4 H (80.0-97.0) FL MCHC 29.2 L (32.0-37.0) d/dL RDW 15.0 H (11.5-14.5) % Plt Count 465 H (140-440) X 10*3/uL Neutrophils # 8.58 H (1.80-7.70) X 10*3/uL Potassium 5.7 H (3.5-5.1) mmol/L BUN 21 H (7-17) mg/dL Creatinine 1.15 H (0.52-1.04) mg/dL Microbiology - Last 24 Hours (Table) 10/19/22 21:36 Gram Stain - Preliminary Leg - Right Wound Culture - Preliminary Presumptive Staph aureus Assessment and Plan (1) Cellulitis of right leg Current Visit: Yes Status: Acute Code(s): L03.115 - CELLULITIS OF RIGHT LOWER LIMB SNOMED Code(s): 552538987 Plan: 1patient with acute right lower extremity cellulitis with rapid progression highly characteristic of streptococcal disease in this patient failing outpa tient Bactrim DS therapy did have diffuse swelling and blister formation with subsequently has ruptured leading to some superficial ulceration 2-patient with renal insufficiency high risk of nephrotoxicity from vancomycin 3-continue the patient on cefazolin and monitor clinical course closely Time with Patient: Less than 30
[2022-10-22] MEDS: SODIUM CHLORIDE 0.9% 1,000 ML IV SCH ×3 (00:20→20:43)
[2022-10-22] MEDS: HYDROmorphone 0.5 MG/0.5 ML SYRINGE IVP PRN ×4 (01:35→20:41)
[2022-10-22 07:00] LABS: African American GFR (CKD) 68 (>60 ml/min/1.73 sqM); Non-African American GFR(CKD) 59 (>60 ml/min/1.73 sqM)
[2022-10-22] MEDS: BISOPROLOL-HCTZ 5-6.25 MG 1 EACH TAB PO SCH (08:49)
[2022-10-22] MEDS: HEPARIN SODIUM,PORCINE/PF 5,000 UNIT/0.5 ML SYRINGE SQ SCH ×2 (08:49→20:41)
[2022-10-22] MEDS: CHOLECALCIFEROL 125 MCG (5000 IU) TABLET PO SCH (08:49)
[2022-10-22] MEDS: FUROSEMIDE 20 MG TAB PO SCH (08:49)
[2022-10-22] MEDS: FAMOTIDINE 20 MG TAB PO SCH (08:49)
[2022-10-22] MEDS: PANTOPRAZOLE 40 MG/10 ML VIAL IVP SCH (08:50)
[2022-10-22] MEDS: SILVER sulfADIAZINE Cream 400 GM 1 APPLIC APPLIC TOPICAL SCH (08:51)
[2022-10-22] MEDS: LETROZOLE 2.5 MG TAB PO SCH (09:24)
--- NOTE | 2022-10-22 12:37 | P.PN ---
Subjective Progress Note Date: 10/22/22 Principal diagnosis: Right lower extremity cellulitis Patient is a 77-year-old female with a past medical history negative for diabetes mellitus hypertension hyperlipidemia osteoarthritis presented to the hospital with increasing pain swelling and redness of right lower extremity, patient has been diagnosed with right lower extremity cellulitis On today's evaluation that is 10/22/2022, the patient denies having any fever or any chills, patient is breathing comfortably no chest pain or shortness of breath or cough no abdominal pain. The right leg is slightly decreased in intensity, about 4 out of 10 Objective - Vital Signs Vital signs: Vital Signs Temp 98.4 F 10/22/22 07:05 Pulse 61 10/22/22 07:05 Resp 16 10/22/22 07:05 BP 114/50 10/22/22 07:05 Pulse Ox 96 10/22/22 07:05 FiO2 Intake & Output 10/21/22 10/22/22 10/22/22 18:59 06:59 18:59 Other: Voiding Method Bedside Commode Bedside Commode # Voids 3 1 # Bowel Movements 1 - Exam GENERAL DESCRIPTION: An elderly female lying in bed in no distress RESPIRATORY SYSTEM: Unlabored breathing , decreased breath sounds at bases HEART: S1 S2 regular rate and rhythm , ABDOMEN: Soft , no tenderness EXTREMITIES:Patient was noticed to have significant purulent drainage from the right knee incision on minimal pressure - Labs CBC & Chem 7: 10/21/22 05:08 10/22/22 06:04 Labs: Microbiology - Last 24 Hours (Table) 10/19/22 21:36 Gram Stain - Final Leg - Right Wound Culture - Final Staphylococcus aureus 10/19/22 21:15 Blood Culture - Preliminary Blood 10/19/22 21:00 Blood Culture - Preliminary Blood Assessment and Plan (1) Cellulitis of right leg Current Visit: Yes Status: Acute Code(s): L03.115 - CELLULITIS OF RIGHT LOWER LIMB SNOMED Code(s): 230577536 Plan: 1patient with acute right lower extremity cellulitis with rapid progression highly characteristic of streptococcal disease in this patient failing outpatient Bactrim DS therapy did have diffuse swelling and blister formation w ith subsequently has ruptured leading to some superficial ulceration, on review today the patient was noticed to have significant purulent drainage from the lower end of the right incision concerning for right knee septic arthritis 2-orthopedics has been consulted 3-Local culture with MSSA continue with the cefazolin dose adjusted to 2 g every 8 hours check and primary markers Time with Patient: Less than 30
--- NOTE | 2022-10-22 13:08 | XR ---
EXAMINATION TYPE: XR knee complete RT DATE OF EXAM: 10/22/2022 12:51 PM INDICATION: Patient age:Female; 77 years old; Reason for study: lower extremity infection status post remote TKA; COMPARISON: 02/09/2013. TECHNIQUE: The Right knee(s) was examined in Frontal, lateral and oblique projections. FINDINGS: Post knee arthroplasty changes. Remote injury to the right proximal femur. No evidence of any acute osseous pathology, soft tissue swelling, or joint effusion is noted. IMPRESSION: Total knee arthroplasty changes. Remote injury to the right proximal fibula. No evidence of osseous e rosion to suggest osteomyelitis. Findings aren't significantly changed from prior in 2012.
[2022-10-22] MEDS ORDERED: DEXTROSE 50% SYRINGE 50 ML IVP PRN ×2 (19:01)
--- NOTE | 2022-10-22 19:03 | P.PN ---
Subjective Progress Note Date: 10/21/22 Maintained on IV antibiotics of Kefzol with local wound care with Silvadene and IV fluid hydration. Afebrile, WBC nearly normalized, 12.2, yesterday. Renal function improving,Labs pending. Wound culture pending. Denies chest pain, palpitations or shortness of breath. Maintaining O2 sats in the 90s on 2 L nasal cannula O2. Objective - Vital Signs Vital signs: Vital Signs Temp 98.5 F 10/21/22 11:29 Pulse 60 10/21/22 11:29 Resp 16 10/21/22 11:29 BP 93/57 10/21/22 11:29 Pulse Ox 99 10/21/22 14:44 FiO2 Intake & Output 10/20/22 10/21/22 10/21/22 18:59 06:59 18:59 Intake Total 500 220 Balance 500 220 Intake: Intake, IV Titration 500 Amount Piperacillin-Tazobactam 3 100 .375 gm In Sodium Chloride 0.9% 100 ml @ 25 mls/hr IVPB Q8HR SD Rx# :[id number] Sodium Chloride 0.9% 1, 400 000 ml @ 100 mls/hr IV . Q10H SD Rx#:[id number] Oral 220 Other: Voiding Method Bedside Commode Bedside Commode Bedside Commode # Voids 1 1 # Bowel Movements 1 - Exam GENERAL: Alert and oriented x3, NAD. HEENT: Normocephalic, atraumatic Pupils are round and equally reacting to light. No conjunctival pallor. CARDIOVASCULAR: S1 and S2 present. No murmurs, rubs, or gallops. PULMONARY: Unlabored ,Chest is clear to auscultation, no wheezing , no crackles. ABDOMEN: Soft, nontender, nondistended, normoactive bowel sounds. No palpable organomegaly. +BS. -EXTREMITIES: No cyanosis, clubbing, or pedal edema. Right Lower extremity dressing clean dry and intact. NEUROLOGICAL: Gross neurological examination did not reveal any focal deficits. SKIN: No rashes. Warm and dry. - Labs CBC & Chem 7: 10/21/22 05:08 10/23/22 06:22 Labs: Abnormal Lab Results - Last 24 Hours (Table) 10/21/22 10/21/22 Range/Units 05:08 05:08 WBC 12.20 H (4.50-10.00) X 10*3/uL RBC 3.52 L (4.10-5.20) X 10*6/uL Hgb 10.0 L (12.0-15.0) d/dL Hct 34.3 L (37.2-46.3) % MCV 97.4 H (80.0-97.0) FL MCHC 29.2 L (32.0-37.0) d/dL RDW 15.0 H (11.5-14.5) % Plt Count 465 H (140-440) X 10*3/uL Neutrophils # 8.58 H (1.80-7.70) X 10*3/uL Potassium 5.7 H (3.5-5.1) mmol/L BUN 21 H (7-17) mg/dL Creatinine 1.15 H (0.52-1.04) mg/dL Microbiology - Last 24 Hours (Table) 10/19/22 21:15 Blood Culture - Preliminary Blood 10/19/22 21:00 Blood Culture - Preliminary Blood 10/19/22 21:36 Gram Stain - Preliminary Leg - Right Wound Culture - Preliminary Presumptive Staph aureus Assessment and Plan Assessment: Acute right lower extremity cellulitis and abscess Mild acute kidney injury secondary to dehydration Hypovolemic hyponatremia mild transaminitis Diabetes mellitus Hypertension Hyperlipidemia History of osteoarthritis Hypothyroidism Orbital obesity BMI 53 Plan: Continue on current medication regime ,monitoring and symptomatic treatment. Cultures pending. Antibiotics as per ID., Local wound care. Close monitoring of renal function with repeat labs ordered for a.m. The impression and plan of care has been dictated as directed. : I performed a history and examination of this patient, discussed the same with the dictator. I agree with the dictator's note ,documented as a scribe. Any additional findings or plans will be noted.
--- NOTE | 2022-10-22 19:11 | P.PN ---
Subjective Progress Note Date: 10/22/22 Maintained on IV antibiotics of Kefzol with local wound care with Silvadene and IV fluid hydration. Afebrile, WBC nearly normalized, 12.2, yesterday. Renal function improving,Labs pending. Wound culture pending. Denies chest pain, palpitations or shortness of breath. Maintaining O2 sats in the 90s on 2 L nasal cannula O2. 10/22/2022 maintained on IV antibiotics, afebrile.Decreased pain of right lower extremity .Denies any fever or chills. Coumadin breathing improving, oxygen weaned off. Maintaining O2 sats in the high 90s on room air. Labs pending. Wound cultures reporting MSSA. Objective - Vital Signs Vital signs: Vital Signs Temp 98.1 F 10/22/22 11:29 Pulse 64 10/22/22 11:29 Resp 16 10/22/22 11:29 BP 94/58 10/22/22 11:29 Pulse Ox 98 10/22/22 11:29 FiO2 Intake & Output 10/22/22 10/22/22 10/23/22 06:59 18:59 06:59 Intake Total 700 Balance 700 Intake: Intake, IV Titration 700 Amount Sodium Chloride 0.9% 1, 600 000 ml @ 60 mls/hr IV . [id number] SD Rx#:[id number] ceFAZolin 2 gm In Sodium 100 Chloride 0.9% 50 ml @ 100 mls/hr IVPB Q8HR SD Rx# :[id number] Other: Voiding Method Bedside Commode # Voids 1 - Exam GENERAL: Alert and oriented x3, NAD. CARDIOVASCULAR: S1 and S2 present. No murmurs, rubs, or gallops. PULMONARY: Unlabored ,Chest is clear to auscultation, bilateral bases diminished.no wheezing , no crackles. ABDOMEN: Soft, nontender, nondistended, +BS. -EXTREMITIES: No cyanosis, clubbing, or pedal edema. Right Lower extremity dressing present. NEUROLOGICAL: Gross neurological examination did not reveal any focal deficits. SKIN: No rashes. Warm and dry. - Labs CBC & Chem 7: 10/21/22 05:08 10/23/22 06:22 Labs: Microbiology - Last 24 Hours (Table) 10/19/22 21:15 Blood Culture - Preliminary Blood 10/19/22 21:00 Blood Culture - Preliminary Blood 10/19/22 21:36 Gram Stain - Final Leg - Right Wound Culture - Final Staphylococcus aureus Assessment and Plan Assessment: Acute right lower extremity cellulitis and abscess, cultures reporting MSSA. Mild acute kidney injury secondary to dehydration Hypovolemic hyponatremia mild transaminitis Diabetes mellitus Hypertension Hyperlipidemia History of osteoarthritis Hypothyroidism Orbital obesity BMI 53 Plan: Continue on current medication regime ,monitoring and symptomatic treatment. Labs pending. Antibiotics as per ID., Local wound care. Maintain close monitoring of renal function with repeat labs ordered for a.m. The impression and plan of care has been dictated as directed. : I performed a history and examination of this patient, discussed the same with the dictator. I agree with the dictator's note ,documented as a scribe. Any additional findings or plans will be noted.
[2022-10-22 20:16] LABS: Glucose,Whole Blood 120 mg/dL (70-110)
[2022-10-22] MEDS: ATORVASTATIN 20 MG TAB PO SCH (20:41)
[2022-10-22] MEDS: INSULIN ASPART (NovoLOG) 100 UNIT/ML VIAL SQ SCH (20:43)
[2022-10-23 07:04] LABS: African American GFR (CKD) 75 (>60 ml/min/1.73 sqM); Non-African American GFR(CKD) 65 (>60 ml/min/1.73 sqM)
[2022-10-23] MEDS: INSULIN ASPART (NovoLOG) 100 UNIT/ML VIAL SQ SCH ×4 (07:52→20:07)
[2022-10-23] MEDS: LETROZOLE 2.5 MG TAB PO SCH (08:24)
[2022-10-23] MEDS: HEPARIN SODIUM,PORCINE/PF 5,000 UNIT/0.5 ML SYRINGE SQ SCH ×2 (08:24→20:06)
[2022-10-23] MEDS: BISOPROLOL-HCTZ 5-6.25 MG 1 EACH TAB PO SCH (08:24)
[2022-10-23] MEDS: CHOLECALCIFEROL 125 MCG (5000 IU) TABLET PO SCH (08:24)
[2022-10-23] MEDS: FUROSEMIDE 20 MG TAB PO SCH (08:24)
[2022-10-23] MEDS: FAMOTIDINE 20 MG TAB PO SCH (08:24)
[2022-10-23] MEDS: PANTOPRAZOLE 40 MG/10 ML VIAL IVP SCH (08:25)
[2022-10-23] MEDS: SILVER sulfADIAZINE Cream 400 GM 1 APPLIC APPLIC TOPICAL SCH (08:25)
[2022-10-23] MEDS: HYDROmorphone 0.5 MG/0.5 ML SYRINGE IVP PRN ×2 (08:27→20:08)
[2022-10-23 09:02] LABS: C Reactive Protein 6.9 mg/dL (<1.0)
[2022-10-23 11:44] LABS: Glucose,Whole Blood 97 mg/dL (70-110)
[2022-10-23] MEDS: SODIUM CHLORIDE 0.9% 1,000 ML IV SCH (11:53)
--- NOTE | 2022-10-23 11:53 | XR ---
EXAMINATION TYPE: XR chest 1V portable DATE OF EXAM: 10/23/2022 11:00 AM COMPARISON: Chest radiographs from 06/05/2014 TECHNIQUE: XR chest 1V portable Frontal view of the chest. CLINICAL INDICATION:Female, 77 years old with history of hypoxia; FINDINGS: Lungs/Pleura: There is no evidence of pleural effusion, focal consolidation, or pneumothorax. Pulmonary vascularity: Mild pulmonary vascular congestion. Heart/mediastinum: Cardiomediastinal silhouette is enlarged and stable. Musculoskeletal: No acute osseous pathology. IMPRESSION: Cardiomegaly and mild pulmonary vascular congestion. Correlate with BNP for congestive heart failure.
[2022-10-23] MEDS ORDERED: FUROSEMIDE 10 MG/ML 2 ML VIAL IV ONE (13:52)
--- NOTE | 2022-10-23 16:29 | P.CNOR ---
History of Present Illness - [facility] Consult date: 10/23/22 Consult reason: other History of present illness: Patient is seen at bedside this afternoon in consultation for right leg wound, pain, infection. She is s/p Right TKA per Dr. Leo Ayala in 2012. She states that she developed right leg redness and pain about two weeks ago. She denies injury. She was treated as outpatient initially for cellulitis with oral antibiotocs. She worsened and was admitted to the hospital on 10/19/22. She has been on IV antibiotics and been seen by ID and vascular surgery. A wound with drainage developed at the area of her previous incision. Cultures are showing MSSA. She continues with pain. She denies fever/chills currently. No new numbness or other complaints Review of Systems All systems: negative Constitutional: Denies chills, Denies fever Eyes: denies blurred vision, denies pain Ears, nose, mouth and throat: Denies headache, Denies sore throat Cardiovascular: Denies chest pain, Denies shortness of breath Respiratory: Denies cough Gastrointestinal: Denies abdominal pain, Denies diarrhea, Denies nausea, Denies vomiting Genitourinary: Denies dysuria, Denies hematuria Musculoskeletal: Denies myalgias Integumentary: Denies pruritus, Denies rash Neurological: Denies numbness, Denies weakness Psychiatric: Denies anxiety, Denies depression Endocrine: Denies fatigue, Denies weight change Past Medical History Past Medical History: Diabetes Mellitus, Hyperlipidemia, Hypertension, Osteoart hritis (OA) Additional Past Medical History / Comment(s): Heart Murmur. HIATAL HERNIA. History of Any Multi-Drug Resistant Organisms: None Reported Past Surgical History: Section, Cholecystectomy, Hysterectomy, Joint Replacement Additional Past Surgical History / Comment(s): Jeffrey Knee Replacement, brain BENIGN tumor removed 2000 Past Anesthesia/Blood Transfusion Reactions: Postoperative Nausea & Vomiting (PONV) Past Psychological History: No Psychological Hx Reported Smoking Status: Never smoker Past Alcohol Use History: None Reported Past Drug Use History: None Reported - Past Family History Father Family Medical History: Cancer, Myocardial Infarction (DE) Additional Family Medical History / Comment(s): Bladder CA Mother Family Medical History: Cancer, Coronary Artery Disease (CAD), Myocardial Infarction (DE) Additional Family Medical History / Comment(s): Stomach CA Medications and Allergies Home Medications Medication Instructions Recorded Confirmed Type Bisoprolol-Hctz 5-6.25 mg [Ziac 1 tab PO DAILY 06/05/14 10/19/22 History 5-6.25 MG] Furosemide [Lasix] 20 mg PO DAILY 06/05/14 10/19/22 History Simvastatin [Zocor] 40 mg PO HS 06/05/14 10/19/22 History Cholecalciferol (Vitamin D3) 125 mcg PO DAILY 05/09/22 10/19/22 History [Vitamin D3 (125 MCG = 5,000 IU)] Losartan [Cozaar] 50 mg PO DAILY 05/09/22 10/19/22 History Omeprazole 20 mg PO HS 05/09/22 10/19/22 History Calcium Carbonate [Calcium] 600 mg PO BID 10/19/22 10/19/22 History Letrozole [Femara] 2.5 mg PO DAILY 10/19/22 10/19/22 History Magnesium 250 mg PO DAILY 10/19/22 10/19/22 History Nystatin 100,000 Unit/gm Powd 1 applic TOPICAL BID PRN 10/19/22 10/19/22 History [Mycostatin Powder] SILVER sulfADIAZINE CREAM 1 applic TOPICAL BID 10/19/22 10/19/22 History [Silvadene Cream] Sulfamethox-Tmp 800-160Mg [Bactrim 1 tab PO Q12HR 10/19/22 10/19/22 History DS 800-160 mg] Vit C/E/Zn/Coppr/Lutein/Zeaxan 1 cap PO BID 10/19/22 10/19/22 History [Preservision Areds 2 Softgel] Allergies Allergy/AdvReac Type Severity Reaction Status Date / Time No Known Allergies Allergy Verified 10/19/22 22:40 Physical Examination Inspection of the right knee and lower leg shows diffuse erythema. There is small circular wound at the incision site with purulent drainage. No active bleeding. The skin is warm to touch and mildly tender about the knee. There is pain with minimal ROM of the knee. No pain at hip or ankle. The calf is SNT. Motor and sensation is grossly intact. There is decreased capillary refill distally which appears chronic and has chronic PVD. There is 1+ DP pulse. Results - Labs Labs: Abnormal Lab Results - Last 24 Hours (Table) 10/22/22 10/23/22 10/23/22 Range/Units 20:14 06:22 06:22 ESR 81 H (0-30) mm/Hr POC Glucose (mg/dL) 120 H (70-110) mg/dL C-Reactive Protein 6.9 H (<1.0) mg/dL Microbiology - Last 24 Hours (Table) 10/19/22 21:15 Blood Culture - Preliminary Blood 10/19/22 21:00 Blood Culture - Preliminary Blood 10/22/22 10:00 Gram Stain - Preliminary Knee - Right Wound Culture - Preliminary Presumptive Staph aureus 10/19/22 21:36 Gram Stain - Final Leg - Right Wound Culture - Final Staphylococcus aureus H & H 10/19/22 10/21/22 Range/Units 21:00 05:08 Hgb 11.3 L 10.0 L (11.4-16.0) gm/dL Hct 35.3 34.3 L (34.0-46.0) % Result Diagrams: 10/21/22 05:08 10/23/22 06:22 - Diagnostic results Knee x-ray: report reviewed, image reviewed Assessment and Plan (1) Septic arthritis Narrative/Plan: Patient has been reviewed with Dr. Leo Ayala. Plan is to proceed with I and D of the right knee tomorrow per Dr. Ayala. Continue IV antibiotics, medical management, pain management and DVT prophylaxis. Procedure and consent has been ordered. NPO after MN. Current Visit: Yes Status: Acute Code(s): M00.9 - PYOGENIC ARTHRITIS, UNSPECIFIED SNOMED Code(s): 822314067 (2) Cellulitis of right leg Current Visit: Yes Status: Acute Code(s): L03.115 - CELLULITIS OF RIGHT LOWER LIMB SNOMED Code(s): 735704667 Time with Patient: Less than 30
--- NOTE | 2022-10-23 17:36 | P.PN ---
Subjective Progress Note Date: 10/23/22 This is a patient of Dr Collado monitored on the medical floor for right knee and lower extremity cellulitis. Patient does report worsening redness and swelling to the lower extremity, which is warm to tough. There is some blackened discoloration to the ankle area, patient does have positive pulses. Cultures are showing staph aureus patient continues IV cefazolin and infectious disease is following closely. Orthopedics has been consulted for evaluation and pending. Patient does not want home oxygen and has been requiring 2 L of nasal cannula is severely short of breath when she is up in bleeding, denies a history of heart failure however is maintained on oral Lasix daily. A proBNP was checked and is mildly elevated at 1290 which is borderline given patient's age of 77. Chest xray does reveal pulmonary vascular congestion and patient is given a dose of IV Lasix 20 mg and fluids have been discontinued. Inflammatory markers are elevated. Review of Systems Constitutional: Denied any fatigue denied any fever. Cardio vascular: denied any chest pain, palpitations Gastrointestinal: denied any nausea, vomiting, diarrhea Pulmonary: Denied any shortness of breath cough Neurologic denied any new focal deficits Reports weakness All inpatient medications were reviewed and appropriate changes in these medications as dictated in the interval history and assessment and plan. PHYSICAL EXAMINATION: GENERAL: The patient is alert and oriented x3, not in any acute distress. Well developed, well nourished. HEENT: Pupils are round and equally reacting to light. EOMI. No scleral icterus. No conjunctival pallor. Normocephalic, atraumatic. No pharyngeal erythema. No thyromegaly. CARDIOVASCULAR: S1 and S2 present. No murmurs, rubs, or gallops. PULMONARY: Chest is clear to auscultation, no wheezing or crackles. ABDOMEN: Soft, nontender, nondistended, normoactive bowel sounds. No palpable o rganomegaly. MUSCULOSKELETAL: No joint swelling or deformity. EXTREMITIES: No cyanosis, clubbing. Significant erythema knee to ankle. Lower extremity edema. NEUROLOGICAL: Gross neurological examination did not reveal any focal deficits. SKIN: No rashes. Assessment Right lower extremity cellulitis and septic arthritis of the right knee Leukocytosis Acute kidney injury resolved Elevated transaminases Volume overload with no reported history of heart failure Diabetes Mellitus type 2 controlled Hypertension currently low normal Hx hyperlipidemia Morbid obesity GI prophylaxis DVT prophylaxis Full Code Plan Continue antibiotics pending final cultures Pending orthopedics consultation Stop IV fluids Discontinue blood pressure medications Echocardiogram pending Follow up AM labs The impression and plan of care has been dictated by Celi Guzmán Nurse Practitioner as directed. Dr. Misa MD I have performed a history and physical examination and medical decision making of this patient, discussed the same with the dictator, and agree with the dictators assessment and plan as written, documented as a scribe. Based on total visit time, I have performed more than 50% of this visit. Objective - Vital Signs Vital signs: Vital Signs Temp 98.5 F 10/23/22 08:05 Pulse 78 10/23/22 08:05 Resp 18 10/23/22 08:05 BP 124/76 10/23/22 08:05 Pulse Ox 98 10/23/22 11:29 FiO2 Intake & Output 10/22/22 10/23/22 10/23/22 18:59 06:59 18:59 Intake Total 700 590 50 Balance 700 590 50 Intake: Intake, IV Titration 700 Amount Sodium Chloride 0.9% 1, 600 000 ml @ 60 mls/hr IV . [id number] [facility] Rx#:[id number] ceFAZolin 2 gm In Sodium 100 Chloride 0.9% 50 ml @ 100 mls/hr IVPB Q8HR SD Rx# :[id number] Oral 590 50 Other: Voiding Method Bedside Commode Bedside Commode # Voids 3 - Labs CBC & Chem 7: 10/21/22 05:08 10/23/22 06:22 Labs: Abnormal Lab Results - Last 24 Hours (Table) 10/22/22 10/23/22 10/23/22 Range/Units 20:14 06:22 06:22 ESR 81 H (0-30) mm/Hr POC Glucose (mg/dL) 120 H (70-110) mg/dL C-Reactive Protein 6.9 H (<1.0) mg/dL Microbiology - Last 24 Hours (Table) 10/19/22 21:15 Blood Culture - Preliminary Blood 10/19/22 21:00 Blood Culture - Preliminary Blood 10/22/22 10:00 Gram Stain - Preliminary Knee - Right Wound Culture - Preliminary Presumptive Staph aureus Assessment and Plan Time with Patient: Less than 30
[2022-10-23 17:48] LABS: Glucose,Whole Blood 106 mg/dL (70-110)
[2022-10-23 19:59] LABS: Glucose,Whole Blood 157 mg/dL (70-110)
[2022-10-23] MEDS: ATORVASTATIN 20 MG TAB PO SCH (20:07)
[2022-10-24 07:02] LABS: Glucose,Whole Blood 109 mg/dL (70-110)
[2022-10-24] MEDS: INSULIN ASPART (NovoLOG) 100 UNIT/ML VIAL SQ SCH ×2 (07:12→12:45)
[2022-10-24] MEDS: HYDROmorphone 0.5 MG/0.5 ML SYRINGE IVP PRN ×4 (07:32→20:20)
[2022-10-24] MEDS: PANTOPRAZOLE 40 MG/10 ML VIAL IVP SCH (07:32)
[2022-10-24 08:50] VITALS: BMI 53.6
--- NOTE | 2022-10-24 10:22 | CA ---
Transthoracic Echo Report Name: Beverly Bella Age: 77 Gender: F : 1945 Exam Date: 10/23/2022 15:39 Exam Location: [place] [facility] Ht (in): 59 Wt (lb): 248 Ordering Physician: Celi Guzmán Attending/Referring Phys: Ramirez CRAWLEY Banking Assistant Kaela Syed, DEREK Procedure CPT: Indications: chf Cardiac Hx: Technical Quality: Fair Contrast 1: Total Dose (mL): Contrast 2: Total Dose (mL): MEASUREMENTS (Male / Female) Normal Values 2D ECHO LV Diastolic Diameter PLAX 5.0 cm 4.2 - 5.9 / 3.9 - 5.3 cm LV Systolic Diameter PLAX 3.1 cm IVS Diastolic Thickness 1.1 cm 0.6 - 1.0 / 0.6 - 0.9 cm LVPW Diastolic Thickness 1.1 cm 0.6 - 1.0 / 0.6 - 0.9 cm LV Relative Wall Thickness 0.4 RV Internal Dim ED PLAX 3.1 cm LA Systolic Diameter LX 3.0 cm 3.0 - 4.0 / 2.7 - 3.8 cm LA Volume 48.7 cm??? 18 - 58 / 22 - 52 cm??? M-MODE Aortic Root Diameter MM 2.9 cm MV E Point Septal Separation 0.6 cm AV Cusp Separation MM 1.7 cm DOPPLER AV Peak Velocity 256.6 cm/s AV Peak Gradient 26.3 mmHg AV Mean Velocity 180.2 cm/s AV Mean Gradient 14.7 mmHg AV Velocity Time Integral 55.7 cm LVOT Peak Velocity 158.2 cm/s LVOT Peak Gradient 10.0 mmHg MV Area PHT 2.8 cm??? Mitral E Point Velocity 110.5 cm/s Mitral A Point Velocity 138.6 cm/s Mitral E to A Ratio 0.8 MV Deceleration Time 275.8 ms MV E' Velocity 4.7 cm/s Mitral E to MV E' Ratio 23.3 TR Peak Velocity 281.1 cm/s TR Peak Gradient 31.6 mmHg Right Ventricular Systolic Press 36.6 mmHg FINDINGS Left Ventricle Left ventricular ejection fraction is estimated at 55-60 %. Left ventricular cavity size normal. Mildly increased septal wall thickness. Mildly increased posterior wall thickness. Normal left ventricular wall motion. Right Ventricle Normal right ventricular size and function. Mild pulmonary hypertension. Right Atrium Normal right atrial size. Left Atrium Normal left atrial size. Mitral Valve Structurally normal mitral valve. No mitral stenosis, regurgitation or prolapse. Aortic Valve Aortic valve sclerosis. Mild aortic stenosis with a peak gradient of 26 mmHg and a mean gradient of 15 mmHg. Tricuspid Valve Structurally normal tricuspid valve. Mild tricuspid regurgitation. Pulmonic Valve Pulmonic valve not well visualized. Pericardium Normal pericardium. No pericardial effusion. Aorta Normal size aortic root and proximal ascending aorta. CONCLUSIONS Normal LV size and systolic function. Mildly increased gradient across aortic valve probable mild aortic stenosis. Valve interrogation is suboptimal. No significant pulmonary hypertension Previewed by: Dr. Constantino Munoz MD (Electronically Signed) Final Date: 24 October 2022 10:21
[2022-10-24 10:58] LABS: Basophils # (A) 0.03 X 10*3/uL (0.00-0.10); Basophils % (A) 0.3 %; Eosinophils # (A) 0.12 X 10*3/uL (0.04-0.35); Eosinophils % (A) 1.4 %; HCT 32.2 % (37.2-46.3); HGB 9.6 d/dL (12.0-15.0); Lymphocytes # (A) 1.69 X 10*3/uL (0.90-5.00); Lymphocytes % (A) 19.1 %; MCH 28.2 pg (27.0-32.0); MCHC 29.8 d/dL (32.0-37.0); MCV 94.7 FL (80.0-97.0); Mean Platelet Volume 10.1 FL (9.5-12.2); Monocytes # (A) 0.53 X 10*3/uL (0.20-1.00); NRBC Per 100 WBC 0 X 10*3/uL (0.00-0.01); Neutrophils # (A) 6.38 X 10*3/uL (1.80-7.70); Neutrophils % (A) 72.2 %; Platelet Count 321 X 10*3/uL (140-440); RDW 14.7 % (11.5-14.5); WBC 8.84 X 10*3/uL (4.50-10.00)
[2022-10-24 11:02] LABS: Blood Urea Nitrogen 11.3 mg/dL (9.0-27.0); Calcium 9.1 mg/dL (8.7-10.3); Carbon Dioxide 27.4 mmol/L (21.6-31.8); Chloride 102 mmol/L (96-109); Glucose 104 mg/dL (70-110); Potassium 4.5 mmol/L (3.5-5.5); Sodium 141 mmol/L (135-145)
[2022-10-24 12:06] LABS: Glucose,Whole Blood 99 mg/dL (70-110)
[2022-10-24] MEDS: FAMOTIDINE 20 MG TAB PO SCH (12:44)
[2022-10-24] MEDS: HEPARIN SODIUM,PORCINE/PF 5,000 UNIT/0.5 ML SYRINGE SQ SCH ×2 (12:44→20:20)
[2022-10-24] MEDS: CHOLECALCIFEROL 125 MCG (5000 IU) TABLET PO SCH (12:44)
[2022-10-24] MEDS: SILVER sulfADIAZINE Cream 400 GM 1 APPLIC APPLIC TOPICAL SCH (12:45)
[2022-10-24] MEDS ORDERED: LACTATED RINGERS 1,000 ML IV ONE (13:27)
[2022-10-24] MEDS ORDERED: SUCCINYLCHOLINE CHLORIDE 200 MG/10 ML VIAL IV ONE (14:00)
[2022-10-24] MEDS ORDERED: LIDOCAINE 2% INJ 20 MG/ML (2 ML VIAL) ONE (14:00)
[2022-10-24] MEDS ORDERED: PROPOFOL 10 MG/ML 20 ML VIAL IV ONE (14:00)
[2022-10-24] MEDS ORDERED: fentaNYL (PF) 50 MCG/ML 2 ML AMP ONE (14:00)
[2022-10-24] MEDS ORDERED: MIDAZOLAM 2 MG/2 ML VIAL ONE (14:00)
[2022-10-24] MEDS ORDERED: ceFAZolin 3,000 MG in SODIUM CHLORIDE 0.9% IRRIGATIO 3,000 ML IRRIGATION ONE (14:27)
[2022-10-24] MEDS ORDERED: VANCOMYCIN 1,000 MG VIAL MISCELLANE ONE (14:40)
[2022-10-24] MEDS ORDERED: TOBRAMYCIN SULFATE 1.2 GM VIAL MISCELLANE ONE (14:40)
--- NOTE | 2022-10-24 14:48 | P.OP ---
Date of Procedure: 10/24/22 Preoperative Diagnosis: Infection right total knee arthroplasty Postoperative Diagnosis: Superficial Infection right total knee arthroplasty Procedure(s) Performed: 1. Incision and drainage right total knee 2. Placement of Stimulan Antibiotic beads Implants: Stimulan Antibiotic beads with 1.2 g tobramycin and 1 g vancomycin Anesthesia: GREGORY Surgeon: Leo Ayala Induction Brazer #1: Nalini Cunningham Estimated Blood Loss (ml): 50 Pathology: other (Deep cultures 2 right knee) Condition: stable Disposition: PACU Indications for Procedure: This is a 77-year-old female that has had a right total knee arthroplasty approximately 10 years ago. This past weekend she began to have redness and pain in her right knee and presented to the hospital emergency room. She began to drain purulent material from her knee and after discussing the surgical and nonsurgical treatment options with her and her family at length recommended an incision and drainage of the knee. We will also be placing antibiotic beads in order to help eradicate the infection. It was explained to the patient and the family that the infection persists, we will have to remove the prosthesis and place a temporary antibiotic spacer. They're aware of these complications and procedures and informed consent was obtained. Operative Findings: The operative findings are consistent with a superficial infection of the right total knee. There was no evidence of infection deep to the fascia. Description of Procedure: The patient was seen in the preoperative area, the consent was reviewed and the operative site was marked with a skin marker. The patient verified the procedure and the operative site. A general anesthetic was administered by the anesthesia department. Care was taken to make sure that all pressure points were adequately padded. The lower extremity was prepped with ChloraPrep and draped in usual sterile fashion. A universal time-out was then performed which confirmed the patient's name, surgical site, ALLERGIES, and consent. A standard anterior midline approach to the knee was performed. The prior incision was excised along with the sinus tract. The skin and subcutaneous tissue were sharply dissected down to the patellar tendon. There was very little purulent material encountered. Cautery was used to coagulate the bleeders. The patellar tendon was then identified and a small medial parapatellar arthrotomy was performed. There was no evidence of any purulent material deep to the patellar tendon. The total knee prosthesis was visualized and found to be intact. 2 deep cultures were obtained. The knee was then irrigated with 3000 L of antibiotic solution. Also, a Betadine bath was performed. While the knee was being irrigated, the Stimulan antibiotic beads were prepared on the back table. This was done by mixing together the ingredients as well as 1.2 g of tobramycin and 1 g of vancomycin. The fascia was then closed with 0 Vicryl. The subcutaneous tissue was closed with 2-0 Vicryl. [place] were placed on the skin. A Prevena wound VAC was placed over the incision. A lightly compressive dressing was applied using web roll and Memo wrap. Patient was then transferred to the stretcher and taken to recovery room in stable condition. Sponge and needle counts were correct. The blood and plasma laboratory assistant VEE Light was required due the complexity surgery and the need for a skilled assistant district attorney. She assisted in positioning, draping, retraction, and closure of the wound.
[2022-10-24] MEDS: SODIUM CHLORIDE 0.9% 1,000 ML IV SCH (16:24)
[2022-10-24] MEDS: LETROZOLE 2.5 MG TAB PO SCH (16:30)
[2022-10-24] MEDS: FUROSEMIDE 20 MG TAB PO SCH (16:30)
[2022-10-24] MEDS ORDERED: FUROSEMIDE 20 MG TAB PO SCH (16:41)
--- NOTE | 2022-10-24 16:44 | P.PN ---
Subjective Progress Note Date: 10/24/22 This is a patient of Dr Collado monitored on the medical floor for right knee and lower extremity cellulitis. Patient does report worsening redness and swelling to the lower extremity, which is warm to tough. There is some blackened discoloration to the ankle area, patient does have positive pulses. Cultures are showing staph aureus patient continues IV cefazolin and infectious disease is following closely. Orthopedics has been consulted for evaluation and pending. Patient does not want home oxygen and has been requiring 2 L of nasal cannula is severely short of breath when she is up in bleeding, denies a history of heart failure however is maintained on oral Lasix daily. A proBNP was checked and is mildly elevated at 1290 which is borderline given patient's age of 77. Chest xray does reveal pulmonary vascular congestion and patient is given a dose of IV Lasix 20 mg and fluids have been discontinued. Inflammatory markers are elevated. 10/24/2022 Patient is evaluated today sitting up in chair. Feels breathing has improved. Echocardiogram reveals normal LV size and systolic function with probable mild aortic stenosis and mild TR, mild pulmonary hypertension. Remains on IV fluids at this time. Patient reports pain to the right knee is controlled with current pain regimen. Patient to undergo surgical I and D of the right knee with orthopedics today. Continues on IV antibiotics infectious disease following closely. Review of Systems Constitutional: Denied any fatigue denied any fever. Cardio vascular: denied any chest pain, palpitations Gastrointestinal: denied any nausea, vomiting, diarrhea Pulmonary: Mild shortness of breath cough Neurologic denied any new focal deficits Reports weakness All inpatient medications were reviewed and appropriate changes in these medications as dictated in the interval history and assessment and plan. PHYSICAL EXAMINATION: GENERAL: The patient is alert and oriented x3, not in any acute distress. Well developed, well nourished. HEENT: Pupils are round and equally reacting to light. EOMI. No scleral icterus. No conjunctival pallor. Normocephalic, atraumatic. No pharyngeal erythema. No thyromegaly. CARDIOVASCULAR: S1 and S2 present. No murmurs, rubs, or gallops. PULMONARY: Chest is clear to auscultation, no wheezing or crackles. Chest is diminished. on 2l nasal cannula. ABDOMEN: Soft, nontender, nondistended, normoactive bowel sounds. No palpable organomegaly. MUSCULOSKELETAL: No joint swelling or deformity. EXTREMITIES: No cyanosis, clubbing. Significant erythema knee to ankle. Lower extremity edema. purulent drainage from the right knee. NEUROLOGICAL: Gross neurological examination did not reveal any focal deficits. SKIN: No rashes. Assessment Right lower extremity cellulitis and septic arthritis of the right knee Leukocytosis Acute kidney injury resolved Elevated transaminases Volume overload with no reported history of heart failure Diabetes Mellitus type 2 controlled Hypertension currently low normal Hx hyperlipidemia s/p total right knee in 2012. Morbid obesity GI prophylaxis DVT prophylaxis Full Code Plan Continue antibiotics pending final cultures Patient to undergo I and D of the right knee today Follow up AM labs The impression and plan of care has been dictated by Celi Guzmán Nurse Practitioner as directed. Dr. Misa MD I have performed a history and physical examination and medical decision making of this patient, discussed the same with the dictator, and agree with the dictators assessment and plan as written, documented as a scribe. Based on total visit time, I have performed more than 50% of this visit. Objective - Vital Signs Vital signs: Vital Signs Temp 97.2 F L 10/24/22 15:17 Pulse 72 10/24/22 16:01 Resp 16 10/24/22 16:01 BP 112/46 10/24/22 16:01 Pulse Ox 96 10/24/22 16:01 FiO2 Intake & Output 10/23/22 10/24/22 10/24/22 18:59 06:59 18:59 Intake Total 50 50 551 Output Total 50 Balance 50 50 501 Weight 112.491 kg Intake: IV 551 Intake, IV Titration 50 Amount ceFAZolin 2 gm In Sodium 50 Chloride 0.9% 50 ml @ 100 mls/hr IVPB Q8HR [facility] Rx# :[id number] Oral 50 0 Output: Estimated Blood Loss 50 Other: Voiding Method Bedside Commode Bedside Commode # Voids 1 2 # Bowel Movements 1 - Labs CBC & Chem 7: 10/24/22 07:09 10/24/22 07:09 Labs: Abnormal Lab Results - Last 24 Hours (Table) 10/23/22 10/24/22 10/24/22 Range/Units 19:46 07:09 07:09 RBC 3.40 L (4.10-5.20) X 10*6/uL Hgb 9.6 L (12.0-15.0) d/dL Hct 32.2 L (37.2-46.3) % MCHC 29.8 L (32.0-37.0) d/dL RDW 14.7 H (11.5-14.5) % Est GFR (CKD-EPI) 59 L (>=60) BUN/Creatinine Ratio 11.30 L (12.00-20.00) Ratio POC Glucose (mg/dL) 157 H (70-110) mg/dL Microbiology - Last 24 Hours (Table) 10/22/22 10:00 Gram Stain - Final Knee - Right Wound Culture - Final Staphylococcus aureus 10/19/22 21:15 Blood Culture - Preliminary Blood 10/19/22 21:00 Blood Culture - Preliminary Blood Assessment and Plan Time with Patient: Less than 30
[2022-10-24] MEDS: traMADol 50 MG TAB PO PRN (18:11)
[2022-10-24] MEDS: ATORVASTATIN 20 MG TAB PO SCH (20:21)
[2022-10-25] MEDS: traMADol 50 MG TAB PO PRN ×2 (06:05→13:24)
[2022-10-25] MEDS: SODIUM CHLORIDE 0.9% 1,000 ML IV SCH (06:24)
[2022-10-25] MEDS: PANTOPRAZOLE 40 MG/10 ML VIAL IVP SCH (08:03)
--- NOTE | 2022-10-25 08:43 | P.PN ---
Subjective Progress Note Date: 10/23/22 Principal diagnosis: Right lower extremity cellulitis Patient is a 77-year-old female with a past medical history negative for diabetes mellitus hypertension hyperlipidemia osteoarthritis presented to the hospital with increasing pain swelling and redness of right lower extremity, patient has been diagnosed with right lower extremity cellulitis On today's evaluation that is 10/23/2022 patient remains to be afebrile, the patient is breathing comfortably no chest pain no shortness with a cough no nausea vomiting no abdominal pain pain to the right is currently controlled Objective - Vital Signs Vital signs: Vital Signs Temp 98.5 F 10/23/22 08:05 Pulse 78 10/23/22 08:05 Resp 18 10/23/22 08:05 BP 124/76 10/23/22 08:05 Pulse Ox 98 10/23/22 08:05 FiO2 Intake & Output 10/22/22 10/23/22 10/23/22 18:59 06:59 18:59 Intake Total 700 590 50 Balance 700 590 50 Intake: Intake, IV Titration 700 Amount Sodium Chloride 0.9% 1, 600 000 ml @ 60 mls/hr IV . [id number] [facility] Rx#:[id number] ceFAZolin 2 gm In Sodium 100 Chloride 0.9% 50 ml @ 100 mls/hr IVPB Q8HR [facility] Rx# :[id number] Oral 590 50 Other: Voiding Method Bedside Commode # Voids 3 - Exam GENERAL DESCRIPTION: An elderly female lying in bed in no distress RESPIRATORY SYSTEM: Unlabored breathing , decreased breath sounds at bases HEART: S1 S2 regular rate and rhythm , ABDOMEN: Soft , no tenderness EXTREMITIES:Patient was noticed to have significant purulent drainage from the right knee incision on minimal pressure - Labs CBC & Chem 7: 10/24/22 07:09 10/24/22 07:09 Labs: Abnormal Lab Results - Last 24 Hours (Table) 10/22/22 10/23/22 Range/Units 20:14 06:22 POC Glucose (mg/dL) 120 H (70-110) mg/dL C-Reactive Protein 6.9 H (<1.0) mg/dL Microbiology - Last 24 Hours (Table) 10/22/22 10:00 Gram Stain - Preliminary Knee - Right Wound Culture - Preliminary Presumptive Staph aureus 10/19/22 21:15 Blood Culture - Preliminary Blood 10/19/22 21:00 Blood Culture - Preliminary Blood 10/19/22 21:36 Gram Stain - Final Leg - Right Wound Culture - Final Staphylococcus aureus Assessment and Plan (1) Cellulitis of right leg Current Visit: Yes Status: Acute Code(s): L03.115 - CELLULITIS OF RIGHT LOWER LIMB SNOMED Code(s): 884556978 Plan: 1patient with acute right lower extremity cellulitis with rapid progression highly characteristic of streptococcal disease in this patient failing outpatient Bactrim DS therapy did have diffuse swelling and blister formation with subsequently has ruptured leading to some superficial ulceration, on review today the patient was noticed to have significant purulent drainage from the lower end of the right incision concerning for right knee septic arthritis 2-orthopedics has been consulted And awaiting their recommendation. 3blood culture has been negative so far local culture with MSSA we will continue patient on cefazolin and monitor clinical course closely Time with Patient: Less than 30
--- NOTE | 2022-10-25 08:46 | P.PN ---
Subjective Progress Note Date: 10/24/22 Principal diagnosis: Right lower extremity cellulitis Patient is a 77-year-old female with a past medical history negative for diabetes mellitus hypertension hyperlipidemia osteoarthritis presented to the hospital with increasing pain swelling and redness of right lower extremity, patient has been diagnosed with right lower extremity cellulitis On today's evaluation that is 10/24/2022 the patient remains to be afebrile, patient is breathing comfortably, the patient seem to be slightly upset waiting for surgery and mention she is hungry and do not want to wait any further no nausea no vomiting and no diarrhea Objective - Vital Signs Vital signs: Vital Signs Temp 97.3 F L 10/24/22 13:31 Pulse 68 10/24/22 13:31 Resp 16 10/24/22 13:31 BP 137/63 10/24/22 13:31 Pulse Ox 99 10/24/22 13:31 FiO2 Intake & Output 10/23/22 10/24/22 10/24/22 18:59 06:59 18:59 Intake Total 50 50 Balance 50 50 Weight 112.491 kg Intake: Intake, IV Titration 50 Amount ceFAZolin 2 gm In Sodium 50 Chloride 0.9% 50 ml @ 100 mls/hr [facility]PB [facility]HR [facility] Rx# :[id number] Oral 50 0 Other: Voiding Method Bedside Commode Bedside Commode # Voids 1 2 # Bowel Movements 1 - Exam GENERAL DESCRIPTION: An elderly female lying in bed in no distress RESPIRATORY SYSTEM: Unlabored breathing , decreased breath sounds at bases HEART: S1 S2 regular rate and rhythm , ABDOMEN: Soft , no tenderness EXTREMITIES: Right knee incision is currently dressed minimal drainage on the dressing some surrounding swelling and redness - Labs CBC & Chem 7: 10/24/22 07:09 10/24/22 07:09 Labs: Abnormal Lab Results - Last 24 Hours (Table) 10/23/22 10/23/22 10/24/22 Range/Units 06:22 19:46 07:09 RBC 3.40 L (4.10-5.20) X 10*6/uL Hgb 9.6 L (12.0-15.0) d/dL Hct 32.2 L (37.2-46.3) % MCHC 29.8 L (32.0-37.0) d/dL RDW 14.7 H (11.5-14.5) % Est GFR (CKD-EPI) (>=60) BUN/Creatinine Ratio (12.00-20.00) Ratio POC Glucose (mg/dL) 157 H (70-110) mg/dL Hemoglobin A1c 6.1 H (<=6.0) % 10/24/22 Range/Units 07:09 RBC (4.10-5.20) X 10*6/uL Hgb (12.0-15.0) d/dL Hct (37.2-46.3) % MCHC (32.0-37.0) d/dL RDW (11.5-14.5) % Est GFR (CKD-EPI) 59 L (>=60) BUN/Creatinine Ratio 11.30 L (12.00-20.00) Ratio POC Glucose (mg/dL) (70-110) mg/dL Hemoglobin A1c (<=6.0) % Microbiology - Last 24 Hours (Table) 10/22/22 10:00 Gram Stain - Final Knee - Right Wound Culture - Final Staphylococcus aureus 10/19/22 21:15 Blood Culture - Preliminary Blood 10/19/22 21:00 Blood Culture - Preliminary Blood Assessment and Plan (1) Cellulitis of right leg Current Visit: Yes Status: Acute Code(s): L03.115 - CELLULITIS OF RIGHT LOWER LIMB SNOMED Code(s): 780756409 Plan: 1patient with acute right lower extremity cellulitis with rapid progression highly characteristic of streptococcal disease in this patient failing o utpatient Bactrim DS therapy did have diffuse swelling and blister formation with subsequently has ruptured leading to some superficial ulceration, on review today the patient was noticed to have significant purulent drainage from the lower end of the right incision concerning for right knee septic arthritis 2-orthopedics has been consulted , The patient is currently waiting for surgery this afternoon. 3we will continue patient on cefazolin patient will likely need IV antibiotics on discharge plan of care were discussed with the family at the bedside Time with Patient: Less than 30
[2022-10-25] MEDS: LETROZOLE 2.5 MG TAB PO SCH (09:30)
[2022-10-25] MEDS: CHOLECALCIFEROL 125 MCG (5000 IU) TABLET PO SCH (09:31)
[2022-10-25] MEDS: FAMOTIDINE 20 MG TAB PO SCH (09:31)
[2022-10-25] MEDS: FUROSEMIDE 20 MG TAB PO SCH (09:31)
[2022-10-25] MEDS: HEPARIN SODIUM,PORCINE/PF 5,000 UNIT/0.5 ML SYRINGE SQ SCH ×2 (09:32→21:34)
[2022-10-25] MEDS: HYDROmorphone 0.5 MG/0.5 ML SYRINGE IVP PRN ×2 (09:47→21:34)
--- NOTE | 2022-10-25 11:06 | P.PN ---
Subjective Progress Note Date: 10/25/22 This is a 77-year-old female who is status post incision and drainage right total knee with placement of antibiotic beads by Dr. Leo Ayala. This postoperative day #1 and patient is seen and evaluated at bedside today. Patient states that she has some pain from surgery, but is overall comfortable. Patient denies any new complaints today. Objective - Vital Signs Vital signs: Vital Signs Temp 99.2 F 10/25/22 07:30 Pulse 77 10/25/22 07:30 Resp 18 10/25/22 07:30 BP 113/64 10/25/22 07:30 Pulse Ox 94 L 10/25/22 07:30 FiO2 Intake & Output 10/24/22 10/25/22 10/25/22 18:59 06:59 18:59 Intake Total 791 1250 Output Total 50 Balance 741 1250 Weight 112.491 kg Intake: IV 551 Intake, IV Titration 240 850 Amount Sodium Chloride 0.9% 1, 140 800 000 ml @ 70 mls/hr IV . [id number] [facility] Rx#:[id number] ceFAZolin 2 gm In Sodium 100 50 Chloride 0.9% 50 ml @ 100 mls/hr IVPB Q8HR [facility] Rx# :[id number] Oral 400 Output: Estimated Blood Loss 50 Other: Voiding Method Bedside Commode # Voids 3 - Exam On exam patient is sitting comfortably in a chair in no acute distress. Patient is alert and oriented x3. Prevena wound vac is clean, dry and intact. Mild erythema present. Calf is soft and nontender to palpation. Sensation intact. Patient has full range of motion of the foot and ankle. Neurovascular status and circulatory status are intact. - Labs CBC & Chem 7: 10/24/22 07:09 10/24/22 07:09 Labs: Abnormal Lab Results - Last 24 Hours (Table) 10/24/22 10/24/22 Range/Units 07:09 07:09 RBC 3.40 L (4.10-5.20) X 10*6/uL Hgb 9.6 L (12.0-15.0) d/dL Hct 32.2 L (37.2-46.3) % MCHC 29.8 L (32.0-37.0) d/dL RDW 14.7 H (11.5-14.5) % Est GFR (CKD-EPI) 59 L (>=60) BUN/Creatinine Ratio 11.30 L (12.00-20.00) Ratio Microbiology - Last 24 Hours (Table) 10/22/22 10:00 Gram Stain - Final Knee - Right Wound Culture - Final Staphylococcus aureus Assessment and Plan Assessment: Superficial Infection right total knee arthroplasty Status post incision and drainage right total knee with placement of antibiotic beads. (1) Status post incision and drainage Current Visit: Yes Status: Acute Code(s): Z98.890 - OTHER SPECIFIED POSTPROCEDURAL STATES SNOMED Code(s): 798860750 (2) Cellulitis of right leg Current Visit: Yes Status: Acute Code(s): L03.115 - CELLULITIS OF RIGHT LOW ER LIMB SNOMED Code(s): 147271877 Plan: 1. Leave Prevena wound vac in place for one week. 2. There was no evidence of a deep infection. Continue antibiotics per infectious disease. Patient can follow up as an outpatient with orthopedics in one week for wound vac removal. We will continue to follow as needed.
--- NOTE | 2022-10-25 16:40 | P.PN ---
Subjective Progress Note Date: 10/25/22 This is a patient of Dr Collado monitored on the medical floor for right knee and lower extremity cellulitis. Patient does report worsening redness and swelling to the lower extremity, which is warm to tough. There is some blackened discoloration to the ankle area, patient does have positive pulses. Cultures are showing staph aureus patient continues IV cefazolin and infectious disease is following closely. Orthopedics has been consulted for evaluation and pending. Patient does not want home oxygen and has been requiring 2 L of nasal cannula is severely short of breath when she is up in bleeding, denies a history of heart failure however is maintained on oral Lasix daily. A proBNP was checked and is mildly elevated at 1290 which is borderline given patient's age of 77. Chest xray does reveal pulmonary vascular congestion and patient is given a dose of IV Lasix 20 mg and fluids have been discontinued. Inflammatory markers are elevated. 10/24/2022 Patient is evaluated today sitting up in chair. Feels breathing has improved. Echocardiogram reveals normal LV size and systolic function with probable mild aortic stenosis and mild TR, mild pulmonary hypertension. Remains on IV fluids at this time. Patient reports pain to the right knee is controlled with current pain regimen. Patient to undergo surgical I and D of the right knee with orthopedics today. Continues on IV antibiotics infectious disease following closely. 10/25/2022 Patient is status post I and D of the right knee with placement of antibiotic beads the right lower extremity cellulitis is improving. Remains on IV cefazolin pending the final deep tissue cultures. Patient remains on 2L nasal cannula. Recommending IV lasix for the lower extremity edema and fluids have been stopped at this time. Review of Systems Constitutional: Denied any fatigue denied any fever. Cardio vascular: denied any chest pain, palpitations Gastrointestinal: denied any nausea, vomiting, diarrhea Pulmonary: Mild shortness of breath cough Neurologic denied any new focal deficits Reports weakness All inpatient medications were reviewed and appropriate changes in these medications as dictated in the interval history and assessment and plan. PHYSICAL EXAMINATION: GENERAL: The patient is alert and oriented x3, not in any acute distress. Well developed, well nourished. HEENT: Pupils are round and equally reacting to light. EOMI. No scleral icterus. No conjunctival pallor. Normocephalic, atraumatic. No pharyngeal erythema. No thyromegaly. CARDIOVASCULAR: S1 and S2 present. No murmurs, rubs, or gallops. PULMONARY: Chest is clear to auscultation, no wheezing or crackles. Chest is diminished. on 2l nasal cannula. ABDOMEN: Soft, nontender, nondistended, normoactive bowel sounds. No palpable organomegaly. MUSCULOSKELETAL: No joint swelling or deformity. EXTREMITIES: No cyanosis, clubbing. Significant erythema knee to ankle improving. Lower exremity edema bilaterally. Wound vac/prevana in place to the right knee. NEUROLOGICAL: Gross neurological examination did not reveal any focal deficits. SKIN: No rashes. Assessment Right lower extremity cellulitis and septic arthritis of the right knee s/p I and D Leukocytosis Acute kidney injury resolved Elevated transaminases Volume overload with no reported history of heart failure Diabetes Mellitus type 2 controlled Hypertension currently low normal Hx hyperlipidemia s/p total right knee in 2012. Morbid obesity GI prophylaxis DVT prophylaxis Full Code Plan Continue antibiotics pending final cultures Prevana pump in place and patient is being followed closely by orthopedics. IV lasix Q12 and continue to encourage IS Follow up AM labs and PT/OT consultation The impression and plan of care has been dictated by Celi Guzmán, Nurse Practitioner as directed. Dr. Misa MD I have performed a history and physical examination and medical decision making of this patient, discussed the same with the dictator, and agree with the dictators assessment and plan as written, documented as a scribe. Based on total visit time, I have performed more than 50% of this visit. Objective - Vital Signs Vital signs: Vital Signs Temp 98.3 F 10/25/22 14:00 Pulse 83 10/25/22 14:00 Resp 16 10/25/22 14:00 BP 107/63 10/25/22 14:00 Pulse Ox 96 10/25/22 14:00 FiO2 Intake & Output 10/24/22 10/25/22 10/25/22 18:59 06:59 18:59 Intake Total 791 1250 Output Total 50 Balance 741 1250 Weight 112.491 kg Intake: IV 551 Intake, IV Titration 240 850 Amount Sodium Chloride 0.9% 1, 140 800 000 ml @ 70 mls/hr IV . [id number] [facility] Rx#:[id number] ceFAZolin 2 gm In Sodium 100 50 Chloride 0.9% 50 ml @ 100 mls/hr IVPB Q8HR [facility] Rx# :[id number] Oral 400 Output: Estimated Blood Loss 50 Other: Voiding Method Bedside Commode Bedside Commode # Voids 3 1 - Labs CBC & Chem 7: 10/24/22 07:09 10/24/22 07:09 Labs: Microbiology - Last 24 Hours (Table) 10/24/22 14:48 Gram Stain - Preliminary Knee - Right 10/19/22 21:15 Blood Culture - Final Blood 10/19/22 21:00 Blood Culture - Final Blood 10/24/22 14:48 Gram Stain - Preliminary Knee - Right Assessment and Plan Time with Patient: Less than 30
[2022-10-25] MEDS: FUROSEMIDE 10 MG/ML 2 ML VIAL IV SCH (19:46)
[2022-10-25] MEDS: ATORVASTATIN 20 MG TAB PO SCH (21:34)
--- NOTE | 2022-10-25 22:33 | P.PN ---
Subjective Progress Note Date: 10/25/22 Principal diagnosis: Right lower extremity cellulitis Patient is a 77-year-old female with a past medical history negative for diabetes mellitus hypertension hyperlipidemia osteoarthritis presented to the hospital with increasing pain swelling and redness of right lower extremity, patient has been diagnosed with right lower extremity cellulitis , Patient is status post I&D of the right knee with operative report mentioning no extension of infection below the patellar tendon. On today's evaluation that is 10/25/2022 patient denies having any fever or any chills, the patient is currently breathing comfortably on 2 L nasal cannula oxygen denies any chest pain shortness of breath or cough no abdominal pain pain to the right knee is currently controlled Objective - Vital Signs Vital signs: Vital Signs Temp 99.2 F 10/25/22 07:30 Pulse 77 10/25/22 07:30 Resp 18 10/25/22 07:30 BP 113/64 10/25/22 07:30 Pulse Ox 94 L 10/25/22 07:30 FiO2 Intake & Output 10/24/22 10/25/22 10/25/22 18:59 06:59 18:59 Intake Total 791 1250 Output Total 50 Balance 741 1250 Weight 112.491 kg Intake: IV 551 Intake, IV Titration 240 850 Amount Sodium Chloride 0.9% 1, 140 800 000 ml @ 70 mls/hr IV . [id number] [facility] Rx#:[id number] ceFAZolin 2 gm In Sodium 100 50 Chloride 0.9% 50 ml @ 100 mls/hr IVPB Q8HR [facility] Rx# :[id number] Oral 400 Output: Estimated Blood Loss 50 Other: Voiding Method Bedside Commode Bedside Commode # Voids 3 1 - Exam GENERAL DESCRIPTION: An elderly female lying in bed in no distress RESPIRATORY SYSTEM: Unlabored breathing , decreased breath sounds at bases HEART: S1 S2 regular rate and rhythm , ABDOMEN: Soft , no tenderness EXTREMITIES: Right knee incision is currently dressed minimal drainage on the d ressing some surrounding swelling and redness - Labs CBC & Chem 7: 10/24/22 07:09 10/24/22 07:09 Labs: Microbiology - Last 24 Hours (Table) 10/19/22 21:15 Blood Culture - Final Blood 10/19/22 21:00 Blood Culture - Final Blood 10/24/22 14:48 Gram Stain - Preliminary Knee - Right 10/22/22 10:00 Gram Stain - Final Knee - Right Wound Culture - Final Staphylococcus aureus Assessment and Plan (1) Cellulitis of right leg Current Visit: Yes Status: Acute Code(s): L03.115 - CELLULITIS OF RIGHT L OWER LIMB SNOMED Code(s): 129901303 Plan: 1patient with acute right lower extremity cellulitis with rapid progression highly characteristic of streptococcal disease in this patient failing outpatient Bactrim DS therapy did have diffuse swelling and blister formation with subsequently has ruptured leading to some superficial ulceration, on review today the patient was noticed to have significant purulent drainage from the lower end of the right incision concerning for right knee septic arthritis 2-Patient is status post I&D of the right knee and antibiotic bead placement mention no extension below the patella tendon. 3-Patient to continue with cefazolin 2 g every 8 hours plan for at least 4 to 6 weeks antibiotic concerning for possible deep infection and close abrasion follow-up Time with Patient: Less than 30
[2022-10-26] MEDS: HEPARIN SODIUM,PORCINE/PF 5,000 UNIT/0.5 ML SYRINGE SQ SCH ×2 (07:19→20:13)
[2022-10-26] MEDS: LETROZOLE 2.5 MG TAB PO SCH (07:19)
[2022-10-26] MEDS: CHOLECALCIFEROL 125 MCG (5000 IU) TABLET PO SCH (07:19)
[2022-10-26] MEDS: traMADol 50 MG TAB PO PRN ×2 (09:09→20:13)
[2022-10-26] MEDS: FUROSEMIDE 10 MG/ML 2 ML VIAL IV SCH ×2 (09:10→20:12)
[2022-10-26] MEDS: PANTOPRAZOLE 40 MG/10 ML VIAL IVP SCH (09:10)
[2022-10-26 09:22] LABS: Basophils # (A) 0.03 X 10*3/uL (0.00-0.10); Basophils % (A) 0.4 %; Eosinophils # (A) 0.11 X 10*3/uL (0.04-0.35); Eosinophils % (A) 1.4 %; HCT 26.6 % (37.2-46.3); HGB 7.9 d/dL (12.0-15.0); Lymphocytes # (A) 1.57 X 10*3/uL (0.90-5.00); Lymphocytes % (A) 19.4 %; MCH 27.9 pg (27.0-32.0); MCHC 29.7 d/dL (32.0-37.0); Mean Platelet Volume 10.1 FL (9.5-12.2); Monocytes # (A) 0.73 X 10*3/uL (0.20-1.00); NRBC Per 100 WBC 0 X 10*3/uL (0.00-0.01); Neutrophils # (A) 5.57 X 10*3/uL (1.80-7.70); Neutrophils % (A) 68.8 %; Platelet Count 321 X 10*3/uL (140-440); RBC 2.83 X 10*6/uL (4.10-5.20); RDW 14.8 % (11.5-14.5); WBC 8.09 X 10*3/uL (4.50-10.00)
[2022-10-26 12:20] LABS: ALT 19 U/L (8-44); AST 26 U/L (13-35); Albumin 2.6 d/dL (3.8-4.9); Albumin/Globulin Ratio 0.96 Ratio (1.60-3.17); Alkaline Phosphatase 195 U/L (41-126); BUN/Creat Ratio 11.38 Ratio (12.00-20.00); Blood Urea Nitrogen 9.1 mg/dL (9.0-27.0); Calcium 9.1 mg/dL (8.7-10.3); Carbon Dioxide 29.4 mmol/L (21.6-31.8); Chloride 97 mmol/L (96-109); Globulin 2.7 d/dL (1.6-3.3); Glucose 117 mg/dL (70-110); Potassium 4.1 mmol/L (3.5-5.5); Sodium 135 mmol/L (135-145); Total Bilirubin 0.2 mg/dL (0.3-1.2); Total Protein 5.3 d/dL (6.2-8.2)
--- NOTE | 2022-10-26 15:18 | P.PN ---
Subjective Progress Note Date: 10/26/22 This is a patient of Dr Collado monitored on the medical floor for right knee and lower extremity cellulitis. Patient does report worsening redness and swelling to the lower extremity, which is warm to tough. There is some blackened discoloration to the ankle area, patient does have positive pulses. Cultures are showing staph aureus patient continues IV cefazolin and infectious disease is following closely. Orthopedics has been consulted for evaluation and pending. Patient does not want home oxygen and has been requiring 2 L of nasal cannula is severely short of breath when she is up in bleeding, denies a history of heart failure however is maintained on oral Lasix daily. A proBNP was checked and is mildly elevated at 1290 which is borderline given patient's age of 77. Chest xray does reveal pulmonary vascular congestion and patient is given a dose of IV Lasix 20 mg and fluids have been discontinued. Inflammatory markers are elevated. 10/24/2022 Patient is evaluated today sitting up in chair. Feels breathing has improved. Echocardiogram reveals normal LV size and systolic function with probable mild aortic stenosis and mild TR, mild pulmonary hypertension. Remains on IV fluids at this time. Patient reports pain to the right knee is controlled with current pain regimen. Patient to undergo surgical I and D of the right knee with orthopedics today. Continues on IV antibiotics infectious disease following closely. 10/25/2022 Patient is status post I and D of the right knee with placement of antibiotic beads the right lower extremity cellulitis is improving. Remains on IV cefazolin pending the final deep tissue cultures. Patient remains on 2L nasal cannula. Recommending IV lasix for the lower extremity edema and fluids have been stopped at this time. 10/26/2022 Patient is evaluated today sitting up in bed. Postoperative day #2 I and D of the right knee. Surgical wound cultures are pending. Initial cultures reveals staph aureus. Remains on IV Cefazolin. Prevana pump in place. Patient reports pain controlled with ultram. Reports improvement in shortness of breath and rec ommend trial off the nasal cannula today. Will continue on IV lasix due to lower extremity edema. Hemoglobin 7.9 today no signs of active bleeding and will continue to monitor. Patient will need subacute rehab on discharge. Review of Systems Constitutional: Denied any fatigue denied any fever. Cardio vascular: denied any chest pain, palpitations Gastrointestinal: denied any nausea, vomiting, diarrhea Pulmonary: Mild shortness of breath cough Neurologic denied any new focal deficits Reports weakness All inpatient medications were reviewed and appropriate changes in these medications as dictated in the interval history and assessment and plan. PHYSICAL EXAMINATION: GENERAL: The patient is alert and oriented x3, not in any acute distress. Well developed, well nourished. HEENT: Pupils are round and equally reacting to light. EOMI. No scleral icterus. No conjunctival pallor. Normocephalic, atraumatic. No pharyngeal erythema. No thyromegaly. CARDIOVASCULAR: S1 and S2 present. No murmurs, rubs, or gallops. PULMONARY: Chest is clear to auscultation, no wheezing or crackles. Chest is diminished. ABDOMEN: Soft, nontender, nondistended, normoactive bowel sounds. No palpable organomegaly. MUSCULOSKELETAL: No joint swelling or deformity. EXTREMITIES: No cyanosis, clubbing. Significant erythema knee to ankle improving. Lower exremity edema bilaterally. Wound vac/prevana in place to the right knee. NEUROLOGICAL: Gross neurological examination did not reveal any focal deficits. SKIN: No rashes. Assessment Right lower extremity cellulitis and septic arthritis of the right knee s/p I and D Leukocytosis resolved Acute kidney injury resolved Elevated transaminases improved Volume overload with no reported history of heart failure Diabetes Mellitus type 2 controlled Hypertension currently low normal Hx hyperlipidemia s/p total right knee in 2012. Morbid obesity GI prophylaxis DVT prophylaxis Full Code Plan Continue antibiotics pending final cultures Prevana pump in place and patient is being followed closely by orthopedics. IV lasix Q12 and continue to encourage IS Follow up AM labs and PT/OT consultation Patient will require subacute rehab on discharge Follow up labs in AM The impression and plan of care has been dictated by Celi Guzmán Nurse Practitioner as directed. Dr. Misa MD I have performed a history and physical examination and medical decision making of this patient, discussed the same with the dictator, and agree with the dictators assessment and plan as written, documented as a scribe. Based on total visit time, I have performed more than 50% of this visit. Objective - Vital Signs Vital signs: Vital Signs Temp 98.7 F 10/26/22 13:07 Pulse 77 10/26/22 13:07 Resp 18 10/26/22 13:07 BP 119/57 10/26/22 13:07 Pulse Ox 93 L 10/26/22 13:07 FiO2 Intake & Output 10/25/22 10/26/22 10/26/22 18:59 06:59 18:59 Intake Total 400 Balance 400 Intake: Intake, IV Titration 400 Amount Sodium Chloride 0.9% 1, 300 000 ml @ 70 mls/hr IV . [id number] [facility] Rx#:[id number] ceFAZolin 2 gm In Sodium 100 Chloride 0.9% 50 ml @ 100 mls/hr IVPB Q8HR [facility] Rx# :[id number] Other: Voiding Method Bedside Commode Bedside Commode Bedside Commode # Voids 4 1 1 # Bowel Movements 1 - Labs CBC & Chem 7: 10/26/22 05:51 10/26/22 05:51 Labs: Abnormal Lab Results - Last 24 Hours (Table) 10/26/22 10/26/22 Range/Units 05:51 05:51 RBC 2.83 L (4.10-5.20) X 10*6/uL Hgb 7.9 L (12.0-15.0) d/dL Hct 26.6 L (37.2-46.3) % MCHC 29.7 L (32.0-37.0) d/dL RDW 14.8 H (11.5-14.5) % BUN/Creatinine Ratio 11.38 L (12.00-20.00) Ratio Glucose 117 H (70-110) mg/dL Total Bilirubin 0.2 L (0.3-1.2) mg/dL Alkaline Phosphatase 195 H (41-126) U/L Total Protein 5.3 L (6.2-8.2) d/dL Albumin 2.6 L (3.8-4.9) d/dL Albumin/Globulin Ratio 0.96 L (1.60-3.17) Ratio Microbiology - Last 24 Hours (Table) 10/24/22 14:48 Gram Stain - Preliminary Knee - Right Wound Culture - Preliminary 10/24/22 14:48 Gram Stain - Preliminary Knee - Right Wound Culture - Preliminary 10/19/22 21:15 Blood Culture - Final Blood 10/19/22 21:00 Blood Culture - Final Blood Assessment and Plan Time with Patient: Less than 30
[2022-10-26] MEDS: ATORVASTATIN 20 MG TAB PO SCH (20:13)
[2022-10-27] MEDS: LETROZOLE 2.5 MG TAB PO SCH (08:57)
[2022-10-27] MEDS: HEPARIN SODIUM,PORCINE/PF 5,000 UNIT/0.5 ML SYRINGE SQ SCH ×2 (08:57→20:52)
[2022-10-27] MEDS: CHOLECALCIFEROL 125 MCG (5000 IU) TABLET PO SCH (08:57)
[2022-10-27] MEDS: FUROSEMIDE 10 MG/ML 2 ML VIAL IV SCH ×2 (08:57→19:31)
[2022-10-27] MEDS: PANTOPRAZOLE 40 MG/10 ML VIAL IVP SCH (08:57)
[2022-10-27 09:29] LABS: Basophils # (A) 0.05 X 10*3/uL (0.00-0.10); Basophils % (A) 0.7 %; Eosinophils # (A) 0.11 X 10*3/uL (0.04-0.35); Eosinophils % (A) 1.5 %; HCT 26.4 % (37.2-46.3); HGB 8.1 d/dL (12.0-15.0); Lymphocytes # (A) 2.01 X 10*3/uL (0.90-5.00); MCH 28.7 pg (27.0-32.0); MCHC 30.7 d/dL (32.0-37.0); MCV 93.6 FL (80.0-97.0); Mean Platelet Volume 10.1 FL (9.5-12.2); Monocytes % (A) 8.1 %; NRBC Per 100 WBC 0 X 10*3/uL (0.00-0.01); Neutrophils # (A) 4.59 X 10*3/uL (1.80-7.70); Neutrophils % (A) 61.6 %; Platelet Count 334 X 10*3/uL (140-440); RBC 2.82 X 10*6/uL (4.10-5.20); RDW 14.9 % (11.5-14.5); WBC 7.44 X 10*3/uL (4.50-10.00)
[2022-10-27 10:16] LABS: Blood Urea Nitrogen 8.8 mg/dL (9.0-27.0); Calcium 9.1 mg/dL (8.7-10.3); Carbon Dioxide 31.1 mmol/L (21.6-31.8); Chloride 97 mmol/L (96-109); Glucose 103 mg/dL (70-110); Potassium 3.9 mmol/L (3.5-5.5); Sodium 138 mmol/L (135-145)
[2022-10-27] MEDS: HYDROmorphone 0.5 MG/0.5 ML SYRINGE IVP PRN (14:19)
--- NOTE | 2022-10-27 16:35 | P.PN ---
Subjective Progress Note Date: 10/27/22 This is a patient of Dr Collado monitored on the medical floor for right knee and lower extremity cellulitis. Patient does report worsening redness and swelling to the lower extremity, which is warm to tough. There is some blackened discoloration to the ankle area, patient does have positive pulses. Cultures are showing staph aureus patient continues IV cefazolin and infectious disease is following closely. Orthopedics has been consulted for evaluation and pending. Patient does not want home oxygen and has been requiring 2 L of nasal cannula is severely short of breath when she is up in bleeding, denies a history of heart failure however is maintained on oral Lasix daily. A proBNP was checked and is mildly elevated at 1290 which is borderline given patient's age of 77. Chest xray does reveal pulmonary vascular congestion and patient is given a dose of IV Lasix 20 mg and fluids have been discontinued. Inflammatory markers are elevated. 10/24/2022 Patient is evaluated today sitting up in chair. Feels breathing has improved. Echocardiogram reveals normal LV size and systolic function with probable mild aortic stenosis and mild TR, mild pulmonary hypertension. Remains on IV fluids at this time. Patient reports pain to the right knee is controlled with current pain regimen. Patient to undergo surgical I and D of the right knee with orthopedics today. Continues on IV antibiotics infectious disease following closely. 10/25/2022 Patient is status post I and D of the right knee with placement of antibiotic beads the right lower extremity cellulitis is improving. Remains on IV cefazolin pending the final deep tissue cultures. Patient remains on 2L nasal cannula. Recommending IV lasix for the lower extremity edema and fluids have been stopped at this time. 10/26/2022 Patient is evaluated today sitting up in bed. Postoperative day #2 I and D of the right knee. Surgical wound cultures are pending. Initial cultures reveals staph aureus. Remains on IV Cefazolin. Prevana pump in place. Patient reports pain controlled with ultram. Reports improvement in shortness of breath and rec ommend trial off the nasal cannula today. Will continue on IV lasix due to lower extremity edema. Hemoglobin 7.9 today no signs of active bleeding and will continue to monitor. Patient will need subacute rehab on discharge. 10/27/2022 Patient is evaluated today sitting up on the commode. Postop day #3 I and D of the right knee with placement of antibiotic beads. Surgical cultures are showing preliminary gram negative bacilli from the right knee. Patient continues on IV cefazolin. Placed on IV lasix 20 Q12 for the lower extremity edema. States breathing has improved and weaned to room air. Hemodynamically stable. Review of Systems Constitutional: Denied any fatigue denied any fever. Cardio vascular: denied any chest pain, palpitations Gastrointestinal: denied any nausea, vomiting, diarrhea Pulmonary: Mild shortness of breath cough Neurologic denied any new focal deficits Reports weakness All inpatient medications were reviewed and appropriate changes in these medications as dictated in the interval history and assessment and plan. PHYSICAL EXAMINATION: GENERAL: The patient is alert and oriented x3, not in any acute distress. Well developed, well nourished. HEENT: Pupils are round and equally reacting to light. EOMI. No scleral icterus. No conjunctival pallor. Normocephalic, atraumatic. No pharyngeal erythema. No thyromegaly. CARDIOVASCULAR: S1 and S2 present. No murmurs, rubs, or gallops. PULMONARY: Chest is clear to auscultation, no wheezing or crackles. Chest is diminished. ABDOMEN: Soft, nontender, nondistended, normoactive bowel sounds. No palpable organomegaly. MUSCULOSKELETAL: No joint swelling or deformity. EXTREMITIES: No cyanosis, clubbing. Significant erythema knee to ankle improving. Lower exremity edema bilaterally. Wound vac/prevana in place to the right knee. NEUROLOGICAL: Gross neurological examination did not reveal any focal deficits. SKIN: No rashes. Assessment Right lower extremity cellulitis and septic arthritis of the right knee s/p I and D Leukocytosis resolved Acute kidney injury resolved Elevated transaminases improved Volume overload with no reported history of heart failure Diabetes Mellitus type 2 controlled Hypertension currently low normal Hx hyperlipidemia s/p total right knee in 2012. Morbid obesity GI prophylaxis DVT prophylaxis Full Code Plan Continue antibiotics with preliminary wound culture showing gram negative bacilli. Patient has PICC line place pending final dc antibiotic recommendations by infectious disease. Prevana pump in place and patient is being followed closely by orthopedics. IV lasix Q12 for the lower extremity edema and recommending to elevate lower extremities while sitting Continue to encourage incentive spirometer 10 x an hour while awake. Possible d/c in the next 24 to 48 hours pending final cultures and decision subacute rehab vs. home with HC. The impression and plan of care has been dictated by Celi Guzmán, Nurse Practitioner as directed. Dr. Misa MD I have performed a history and physical examination and medical decision making of this patient, discussed the same with the dictator, and agree with the dictators assessment and plan as written, documented as a scribe. Based on total visit time, I have performed more than 50% of this visit. Objective - Vital Signs Vital signs: Vital Signs Temp 98.8 F 10/27/22 07:11 Pulse 73 10/27/22 07:11 Resp 16 10/27/22 07:11 BP 109/55 10/27/22 07:11 Pulse Ox 97 10/27/22 07:19 FiO2 Intake & Output 10/26/22 10/27/22 10/27/22 18:59 06:59 18:59 Intake Total 100 550 Balance 100 550 Intake: Intake, IV Titration 100 50 Amount ceFAZolin 2 gm In Sodium 100 50 Chloride 0.9% 50 ml @ 100 mls/hr IVPB Q8HR [facility] Rx# :[id number] Oral 500 Other: Voiding Method Bedside Commode Bedside Commode # Voids 1 2 1 # Bowel Movements 1 - Labs CBC & Chem 7: 10/27/22 05:43 10/27/22 05:43 Labs: Abnormal Lab Results - Last 24 Hours (Table) 10/26/22 10/27/22 Range/Units 05:51 05:43 RBC 2.82 L (4.10-5.20) X 10*6/uL Hgb 8.1 L (12.0-15.0) d/dL Hct 26.4 L (37.2-46.3) % MCHC 30.7 L (32.0-37.0) d/dL RDW 14.9 H (11.5-14.5) % BUN/Creatinine Ratio 11.38 L (12.00-20.00) Ratio Glucose 117 H (70-110) mg/dL Total Bilirubin 0.2 L (0.3-1.2) mg/dL Alkaline Phosphatase 195 H (41-126) U/L Total Protein 5.3 L (6.2-8.2) d/dL Albumin 2.6 L (3.8-4.9) d/dL Albumin/Globulin Ratio 0.96 L (1.60-3.17) Ratio Microbiology - Last 24 Hours (Table) 10/24/22 14:48 Gram Stain - Final Knee - Right Wound Culture - Final 10/24/22 14:48 Anaerobic Culture - Preliminary Knee - Right 10/24/22 14:48 Anaerobic Culture - Preliminary Knee - Right 10/24/22 14:48 Gram Stain - Preliminary Knee - Right Wound Culture - Preliminary Assessment and Plan Time with Patient: Less than 30
--- NOTE | 2022-10-27 17:37 | P.PN ---
Subjective Progress Note Date: 10/26/22 Principal diagnosis: Right lower extremity cellulitis Patient is a 77-year-old female with a past medical history negative for diabetes mellitus hypertension hyperlipidemia osteoarthritis presented to the hospital with increasing pain swelling and redness of right lower extremity, patient has been diagnosed with right lower extremity cellulitis , Patient is status post I&D of the right knee with operative report mentioning no extension of infection below the patellar tendon. On today's evaluation that is 10/26/2022 patient remains to be afebrile, the patient is breathing comfortably on 2 L nasal cannula oxygen denies any chest pain shortness of breath or cough no abdominal pain pain to the right knee is currently controlled Objective - Vital Signs Vital signs: Vital Signs Temp 98.7 F 10/26/22 13:07 Pulse 77 10/26/22 13:07 Resp 18 10/26/22 13:07 BP 119/57 10/26/22 13:07 Pulse Ox 93 L 10/26/22 13:07 FiO2 Intake & Output 10/25/22 10/26/22 10/26/22 18:59 06:59 18:59 Intake Total 400 Balance 400 Intake: Intake, IV Titration 400 Amount Sodium Chloride 0.9% 1, 300 000 ml @ 70 mls/hr IV . [id number] [facility] Rx#:[id number] ceFAZolin 2 gm In Sodium 100 Chloride 0.9% 50 ml @ 100 mls/hr IVPB Q8HR [facility] Rx# :[id number] Other: Voiding Method Bedside Commode Bedside Commode Bedside Commode # Voids 4 1 2 - Exam GENERAL DESCRIPTION: An elderly female lying in bed in no distress RESPIRATORY SYSTEM: Unlabored breathing , decreased breath sounds at bases HEART: S1 S2 regular rate and rhythm , ABDOMEN: Soft , no tenderness EXTREMITIES: Right knee incision is currently dressed minimal drainage on the dressing some surrounding swelling and redness - Labs CBC & Chem 7: 10/27/22 05:43 10/27/22 05:43 Labs: Abnormal Lab Results - Last 24 Hours (Table) 10/26/22 10/26/22 Range/Units 05:51 05:51 RBC 2.83 L (4.10-5.20) X 10*6/uL Hgb 7.9 L (12.0-15.0) d/dL Hct 26.6 L (37.2-46.3) % MCHC 29.7 L (32.0-37.0) d/dL RDW 14.8 H (11.5-14.5) % BUN/Creatinine Ratio 11.38 L (12.00-20.00) Ratio Glucose 117 H (70-110) mg/dL Total Bilirubin 0.2 L (0.3-1.2) mg/dL Alkaline Phosphatase 195 H (41-126) U/L Total Protein 5.3 L (6.2-8.2) d/dL Albumin 2.6 L (3.8-4.9) d/dL Albumin/Globulin Ratio 0.96 L (1.60-3.17) Ratio Microbiology - Last 24 Hours (Table) 10/24/22 14:48 Gram Stain - Preliminary Knee - Right Wound Culture - Preliminary 10/24/22 14:48 Gram Stain - Preliminary Knee - Right Wound Culture - Preliminary 10/19/22 21:15 Blood Culture - Final Blood 10/19/22 21:00 Blood Culture - Final Blood Assessment and Plan (1) Cellulitis of right leg Current Visit: Yes Status: Acute Code(s): L03.115 - CELLULITIS OF RIGHT LOWER LIMB SNOMED Code(s): 673542072 Plan: 1patient with acute right lower extremity cellulitis with rapid progression highly characteristic of streptococcal disease in this patient failing outpatient Bactrim DS therapy did have diffuse swelling and blister formation with subsequently has ruptured leading to some superficial ulceration, on review today the patient was noticed to have significant purulent drainage from the lower end of the right incision concerning for right knee septic arthritis 2-Patient is status post I&D of the right knee and antibiotic bead placement mention no extension below the patella tendon. 3-Patient to continue with cefazolin 2 g every 8 hours while waiting for the OR cultures to finalize Time with Patient: Less than 30
--- NOTE | 2022-10-27 17:38 | P.PN ---
Subjective Progress Note Date: 10/27/22 Principal diagnosis: Right lower extremity cellulitis Patient is a 77-year-old female with a past medical history negative for diabetes mellitus hypertension hyperlipidemia osteoarthritis presented to the hospital with increasing pain swelling and redness of right lower extremity, patient has been diagnosed with right lower extremity cellulitis , Patient is status post I&D of the right knee with operative report mentioning no extension of infection below the patellar tendon. On today's evaluation that is 10/27/2022 patient continues to be afebrile, the patient is breathing comfortably on 2 L nasal cannula oxygen, the patient denies any chest pain shortness of breath or cough no abdominal pain, the patient pain to the right knee has decreased in intensity Objective - Vital Signs Vital signs: Vital Signs Temp 98.8 F 10/27/22 13:35 Pulse 65 10/27/22 13:35 Resp 16 10/27/22 13:35 BP 116/52 10/27/22 13:35 Pulse Ox 93 L 10/27/22 13:35 FiO2 Intake & Output 10/26/22 10/27/22 10/27/22 18:59 06:59 18:59 Intake Total 100 550 Balance 100 550 Intake: Intake, IV Titration 100 50 Amount ceFAZolin 2 gm In Sodium 100 50 Chloride 0.9% 50 ml @ 100 mls/hr IVPB Q8HR [facility] Rx# :[id number] Oral 500 Other: Voiding Method Bedside Commode Bedside Commode Bedside Commode # Voids 1 2 1 # Bowel Movements 1 - Exam GENERAL DESCRIPTION: An elderly female lying in bed in no distress RESPIRATORY SYSTEM: Unlabored breathing , decreased breath sounds at bases HEART: S1 S2 regular rate and rhythm , ABDOMEN: Soft , no tenderness EXTREMITIES: Right knee incision is currently dressed minimal drainage on the dressing some surrounding swelling and redness - Labs CBC & Chem 7: 10/27/22 05:43 10/27/22 05:43 Labs: Abnormal Lab Results - Last 24 Hours (Table) 10/27/22 10/27/22 Range/Units 05:43 05:43 RBC 2.82 L (4.10-5.20) X 10*6/uL Hgb 8.1 L (12.0-15.0) d/dL Hct 26.4 L (37.2-46.3) % MCHC 30.7 L (32.0-37.0) d/dL RDW 14.9 H (11.5-14.5) % BUN 8.8 L (9.0-27.0) mg/dL BUN/Creatinine Ratio 11.00 L (12.00-20.00) Ratio Microbiology - Last 24 Hours (Table) 10/24/22 14:48 Gram Stain - Final Knee - Right Wound Culture - Final 10/24/22 14:48 Anaerobic Culture - Preliminary Knee - Right 10/24/22 14:48 Anaerobic Culture - Preliminary Knee - Right 10/24/22 14:48 Gram Stain - Preliminary Knee - Right Wound Culture - Preliminary Assessment and Plan (1) Cellulitis of right leg Current Visit: Yes Status: Acute Code(s): L03.115 - CELLULITIS OF RIGHT LOWER LIMB SNOMED Code(s): 029662235 Plan: 1patient with acute right lower extremity cellulitis with rapid progression highly characteristic of streptococcal disease in this patient failing outpatient Bactrim DS therapy did have diffuse swelling and blister formation with subsequently has ruptured leading to some superficial ulceration, on review today the patient was noticed to have significant purulent drainage from the lower end of the right incision concerning for right knee septic arthritis 2-Patient is status post I&D of the right knee and antibiotic bead placement mention no extension below the patella tendon. 3-Patient OR cultures are currently growing gram-negative we will switch antibiotic therapy to cefepime while waiting for the cultures to finalize Time with Patient: Less than 30
[2022-10-27] MEDS: CEFEPIME 2 GM in SODIUM CHLORIDE 0.9% 100 ML IVPB SCH (18:46)
[2022-10-27] MEDS: ATORVASTATIN 20 MG TAB PO SCH (20:52)
[2022-10-27] MEDS: traMADol 50 MG TAB PO PRN (20:52)
[2022-10-28] MEDS: CEFEPIME 2 GM in SODIUM CHLORIDE 0.9% 100 ML IVPB SCH ×2 (05:29→18:45)
[2022-10-28] MEDS: CHOLECALCIFEROL 125 MCG (5000 IU) TABLET PO SCH (09:23)
[2022-10-28] MEDS: HEPARIN SODIUM,PORCINE/PF 5,000 UNIT/0.5 ML SYRINGE SQ SCH ×2 (09:23→20:44)
[2022-10-28] MEDS: LETROZOLE 2.5 MG TAB PO SCH (09:23)
[2022-10-28] MEDS: PANTOPRAZOLE 40 MG/10 ML VIAL IVP SCH (10:19)
[2022-10-28] MEDS: FUROSEMIDE 10 MG/ML 2 ML VIAL IV SCH ×2 (10:19→19:27)
--- NOTE | 2022-10-28 13:33 | P.PN ---
Subjective Progress Note Date: 10/28/22 This is a patient of Dr Collado monitored on the medical floor for right knee and lower extremity cellulitis. Patient does report worsening redness and swelling to the lower extremity, which is warm to tough. There is some blackened discoloration to the ankle area, patient does have positive pulses. Cultures are showing staph aureus patient continues IV cefazolin and infectious disease is following closely. Orthopedics has been consulted for evaluation and pending. Patient does not want home oxygen and has been requiring 2 L of nasal cannula is severely short of breath when she is up in bleeding, denies a history of heart failure however is maintained on oral Lasix daily. A proBNP was checked and is mildly elevated at 1290 which is borderline given patient's age of 77. Chest xray does reveal pulmonary vascular congestion and patient is given a dose of IV Lasix 20 mg and fluids have been discontinued. Inflammatory markers are elevated. 10/24/2022 Patient is evaluated today sitting up in chair. Feels breathing has improved. Echocardiogram reveals normal LV size and systolic function with probable mild aortic stenosis and mild TR, mild pulmonary hypertension. Remains on IV fluids at this time. Patient reports pain to the right knee is controlled with current pain regimen. Patient to undergo surgical I and D of the right knee with orthopedics today. Continues on IV antibiotics infectious disease following closely. 10/25/2022 Patient is status post I and D of the right knee with placement of antibiotic beads the right lower extremity cellulitis is improving. Remains on IV cefazolin pending the final deep tissue cultures. Patient remains on 2L nasal cannula. Recommending IV lasix for the lower extremity edema and fluids have been stopped at this time. 10/26/2022 Patient is evaluated today sitting up in bed. Postoperative day #2 I and D of the right knee. Surgical wound cultures are pending. Initial cultures reveals staph aureus. Remains on IV Cefazolin. Prevana pump in place. Patient reports pain controlled with ultram. Reports improvement in shortness of breath and recommend trial off the nasal cannula today. Will continue on IV lasix due to lower extremity edema. Hemoglobin 7.9 today no signs of active bleeding and will continue to monitor. Patient will need subacute rehab on discharge. 10/27/2022 Patient is evaluated today sitting up on the commode. Postop day #3 I and D of the right knee with placement of antibiotic beads. Surgical cultures are showing preliminary gram negative bacilli from the right knee. Patient continues on IV cefazolin. Placed on IV lasix 20 Q12 for the lower extremity edema. States breathing has improved and weaned to room air. Hemodynamically stable. 10/28/2022 Patient is seen and evaluated and follow-up maintained on IV antibiotics with infectious disease following. Patient had repeat cultures done of the wound showing a rare gram-negative bacilli per [facility] lab and will not be resulted for at least another 24 hours. Patient is afebrile with no reports of chest pain or shortness of breath noted. Recommend continue with local wound care. Orthopedics following as well and continues with wound VAC and recommends close outpatient follow-up in one week. Patient plans on going home with home care and will await finalized cultures to determine discharge antibiotics. Patient has received a specialized IV PICC line. Review of Systems Constitutional: Denied any fatigue denied any fever. Cardio vascular: denied any chest pain, palpitations Gastrointestinal: denied any nausea, vomiting, diarrhea Pulmonary: Mild shortness of breath cough Neurologic denied any new focal deficits. Reports weakness All inpatient medications were reviewed and appropriate changes in these medications as dictated in the interval history and assessment and plan. PHYSICAL EXAMINATION: GENERAL: The patient is alert and oriented x3, morbidly obese. Well developed, well nourished. HEENT: Pupils are round and equally reacting to light. EOMI. No scleral icterus. No conjunctival pallor. Normocephalic, atraumatic. No pharyngeal erythema. No thyromegaly. CARDIOVASCULAR: S1 and S2 present. No murmurs, rubs, or gallops. PULMONARY: Chest is clear to auscultation, no wheezing or crackles. Breath sounds diminished. ABDOMEN: Soft, nontender, nondistended, normoactive bowel sounds. No palpable organomegaly. MUSCULOSKELETAL: No joint swelling or deformity. EXTREMITIES: No cyanosis, clubbing. Significant erythema knee to ankle improving. Lower exremity edema bilaterally. Wound vac/prevana in place to the right knee. NEUROLOGICAL: Gross neurological examination did not reveal any focal deficits. SKIN: No rashes. Assessment: Right lower extremity cellulitis and septic arthritis of the right knee s/p I and D Leukocytosis resolved Acute kidney injury resolved Elevated transaminases improved Volume overload with no reported history of heart failure Diabetes Mellitus type 2 controlled Hypertension currently low normal Hx hyperlipidemia s/p total right knee in 2012. Morbid obesity GI prophylaxis DVT prophylaxis Full Code Plan: Continue antibiotics with preliminary wound culture showing gram negative bacilli. Patient has PICC line place pending final dc antibiotic recommendations by infectious disease. Per micro[facility]lab and [place] cultures need to remain in process as the gram-negative is rare slow-growing and will not likely result until at least tomorrow. Prevana pump in place and patient is being followed closely by orthopedics. Recommend continuing with pump and wound VAC and close outpatient follow-up in the next 1 week with orthopedics IV lasix Q12 for the lower extremity edema and recommending to elevate lower extremities while sitting Continue to encourage incentive spirometer 10 x an hour while awake. Case management following and working on home with home care and discharge antib iotics with [facility] in the offices are closed due to holiday tomorrow and continuing to wait for finalized cultures. DC possibly on Friday The impression and plan of care has been dictated by Sherice Molina, Nurse Practitioner as directed. Dr. Bandar MD I have performed a history and examination and MDM of this patient, discussed the same with the dictator, and agree with the dictator's assessment and plan as written ,documented as a scribe. Based on total visit time, I have performed more than 50% of the visit. Objective - Vital Signs Vital signs: Vital Signs Temp 98.3 F 10/28/22 07:31 Pulse 87 10/28/22 07:31 Resp 18 10/28/22 07:31 BP 152/69 10/28/22 07:31 Pulse Ox 94 L 10/28/22 07:55 FiO2 Intake & Output 10/27/22 10/28/22 10/28/22 18:59 06:59 18:59 Intake Total 800 Balance 800 Intake: Intake, IV Titration 200 Amount Cefepime 2 gm In Sodium 200 Chloride 0.9% 100 ml @ 25 mls/hr IVPB Q12H [facility] Rx# :[id number] Oral 600 Other: Voiding Method Bedside Commode Bedside Commode Bedside Commode # Voids 1 1 1 - Labs CBC & Chem 7: 10/27/22 05:43 10/27/22 05:43 Labs: Microbiology - Last 24 Hours (Table) 10/24/22 14:48 Gram Stain - Preliminary Knee - Right Wound Culture - Preliminary Gram Neg Bacilli
[2022-10-28] MEDS: HYDROmorphone 0.5 MG/0.5 ML SYRINGE IVP PRN (13:41)
[2022-10-28] MEDS: traMADol 50 MG TAB PO PRN (20:43)
[2022-10-28] MEDS: ATORVASTATIN 20 MG TAB PO SCH (20:43)
[2022-10-29] MEDS: CEFEPIME 2 GM in SODIUM CHLORIDE 0.9% 100 ML IVPB SCH ×2 (05:24→17:32)
[2022-10-29] MEDS: PANTOPRAZOLE 40 MG/10 ML VIAL IVP SCH (09:24)
[2022-10-29] MEDS: FUROSEMIDE 10 MG/ML 2 ML VIAL IV SCH ×2 (09:24→21:19)
[2022-10-29] MEDS: HEPARIN SODIUM,PORCINE/PF 5,000 UNIT/0.5 ML SYRINGE SQ SCH ×2 (09:24→21:19)
[2022-10-29] MEDS: CHOLECALCIFEROL 125 MCG (5000 IU) TABLET PO SCH (09:24)
[2022-10-29] MEDS: LETROZOLE 2.5 MG TAB PO SCH (09:24)
[2022-10-29 11:37] LABS: African American GFR (CKD) 80 (>60 ml/min/1.73 sqM); Anion Gap 8 mmol/L; Blood Urea Nitrogen 15 mg/dL (7-17); Calcium 9.1 mg/dL (8.4-10.2); Carbon Dioxide 27 mmol/L (22-30); Chloride 99 mmol/L (98-107); Glucose 141 mg/dL (74-99); Non-African American GFR(CKD) 70 (>60 ml/min/1.73 sqM); Sodium 134 mmol/L (137-145)
[2022-10-29 11:44] LABS: Magnesium 1.4 mg/dL (1.6-2.3); Potassium 4.3 mmol/L (3.5-5.1)
[2022-10-29 11:48] LABS: Basophils % (A) 1 %; Eosinophils # (A) 0.1 k/uL (0-0.7); Eosinophils % (A) 2 %; HCT 31.5 % (34.0-46.0); Hypochromasia Moderate; Lymphocytes # (A) 1.1 k/uL (1.0-4.8); Lymphocytes % (A) 15 %; MCH 29.4 pg (25.0-35.0); MCHC 31.6 g/dL (31.0-37.0); Mean Platelet Volume 8.1; Monocytes # (A) 0.4 k/uL (0-1.0); Monocytes % (A) 5 %; Neutrophils # (A) 5.5 k/uL (1.3-7.7); Neutrophils % (A) 76 %; Platelet Count 282 k/uL (150-450); RBC 3.38 m/uL (3.80-5.40); RDW 14.9 % (11.5-15.5); WBC 7.3 k/uL (3.8-10.6)
--- NOTE | 2022-10-29 14:40 | P.PN ---
Subjective Progress Note Date: 10/29/22 This is a patient of Dr Collado monitored on the medical floor for right knee and lower extremity cellulitis. Patient does report worsening redness and swelling to the lower extremity, which is warm to tough. There is some blackened discoloration to the ankle area, patient does have positive pulses. Cultures are showing staph aureus patient continues IV cefazolin and infectious disease is following closely. Orthopedics has been consulted for evaluation and pending. Patient does not want home oxygen and has been requiring 2 L of nasal cannula is severely short of breath when she is up in bleeding, denies a history of heart failure however is maintained on oral Lasix daily. A proBNP was checked and is mildly elevated at 1290 which is borderline given patient's age of 77. Chest xray does reveal pulmonary vascular congestion and patient is given a dose of IV Lasix 20 mg and fluids have been discontinued. Inflammatory markers are elevated. 10/24/2022 Patient is evaluated today sitting up in chair. Feels breathing has improved. Echocardiogram reveals normal LV size and systolic function with probable mild aortic stenosis and mild TR, mild pulmonary hypertension. Remains on IV fluids at this time. Patient reports pain to the right knee is controlled with current pain regimen. Patient to undergo surgical I and D of the right knee with orthopedics today. Continues on IV antibiotics infectious disease following closely. 10/25/2022 Patient is status post I and D of the right knee with placement of antibiotic beads the right lower extremity cellulitis is improving. Remains on IV cefazolin pending the final deep tissue cultures. Patient remains on 2L nasal cannula. Recommending IV lasix for the lower extremity edema and fluids have been stopped at this time. 10/26/2022 Patient is evaluated today sitting up in bed. Postoperative day #2 I and D of the right knee. Surgical wound cultures are pending. Initial cultures reveals staph aureus. Remains on IV Cefazolin. Prevana pump in place. Patient reports pain controlled with ultram. Reports improvement in shortness of breath and recommend trial off the nasal cannula today. Will continue on IV lasix due to lower extremity edema. Hemoglobin 7.9 today no signs of active bleeding and will continue to monitor. Patient will need subacute rehab on discharge. 10/27/2022 Patient is evaluated today sitting up on the commode. Postop day #3 I and D of the right knee with placement of antibiotic beads. Surgical cultures are showing preliminary gram negative bacilli from the right knee. Patient continues on IV cefazolin. Placed on IV lasix 20 Q12 for the lower extremity edema. States breathing has improved and weaned to room air. Hemodynamically stable. 10/28/2022 Patient is seen and evaluated and follow-up maintained on IV antibiotics with infectious disease following. Patient had repeat cultures done of the wound showing a rare gram-negative bacilli per [facility] lab and will not be resulted for at least another 24 hours. Patient is afebrile with no reports of chest pain or shortness of breath noted. Recommend continue with local wound care. Orthopedics following as well and continues with wound VAC and recommends close outpatient follow-up in one week. Patient plans on going home with home care and will await finalized cultures to determine discharge antibiotics. Patient has received a specialized IV PICC line. 10/29/2022 Patient is seen and evaluated in follow-up this morning. Maintained on IV an tibiotics in the form of cefepime with infectious disease following. Discussed with [facility] and currently awaiting follow-up cultures. Patient did have a specialized IV line although there is some redness and irritation around it and infectious disease recommending removing and sending for cultures. Will follow- up once cultures are finalized and discuss further with infectious disease about discharge planning. Will plan for PICC line placement in follow-up with repeat labs. Patient is currently afebrile continuing with local wound care and elevating lower extremity swelling rest. No reports of nausea or vomiting and patient is tolerating diet. Review of Systems Constitutional: Denied any fatigue denied any fever. Cardio vascular: denied any chest pain, palpitations Gastrointestinal: denied any nausea, vomiting, diarrhea Pulmonary: Mild shortness of breath cough Neurologic denied any new focal deficits. Reports weakness All inpatient medications were reviewed and appropriate changes in these medications as dictated in the interval history and assessment and plan. PHYSICAL EXAMINATION: GENERAL: The patient is alert and oriented x3, morbidly obese. Well developed, well nourished. HEENT: Pupils are round and equally reacting to light. EOMI. No scleral icterus. No conjunctival pallor. Normocephalic, atraumatic. No pharyngeal erythema. No thyromegaly. CARDIOVASCULAR: S1 and S2 present. No murmurs, rubs, or gallops. PULMONARY: Chest is clear to auscultation, no wheezing or crackles. Breath sounds diminished. ABDOMEN: Soft, nontender, nondistended, normoactive bowel sounds. No palpable organomegaly. MUSCULOSKELETAL: No joint swelling or deformity. EXTREMITIES: No cyanosis, clubbing. Significant erythema knee to ankle improving. Lower exremity edema bilaterally. Wound vac/prevana in place to the right knee. NEUROLOGICAL: Gross neurological examination did not reveal any focal deficits. SKIN: No rashes. Assessment: Right lower extremity cellulitis and septic arthritis of the right knee s/p I and D Leukocytosis resolved Acute kidney injury resolved Elevated transaminases improved Volume overload with no reported history of heart failure Diabetes Mellitus type 2 controlled Hypertension currently low normal Hx hyperlipidemia s/p total right knee in 2013. Morbid obesity GI prophylaxis DVT prophylaxis Full Code Plan: Continue antibiotics with preliminary wound culture showing gram negative bacilli. Patient has PICC line although does not appear to look like a PICC line and there is some redness and swelling around it with infectious disease following recommending removing that and sending for cultures. Will follow up with new PICC line once cultures have finalized and arrange for discharge antibiotics [facility]lab in [place] reports pending gram-negative cultures at this time Prevana pump in place and patient is being followed closely by orthopedics. Recommend continuing with pump and wound VAC and close outpatient follow-up in the next 1 week with orthopedics IV lasix Q12 for the lower extremity edema and recommending to elevate lower extremities while sitting Continue to encourage incentive spirometer 10 x an hour while awake. Case management following and working on home with home care and discharge antibiotics with [facility] in the offices are closed due to holiday tomorrow and continuing to wait for finalized cultures. Discuss possible discharging in the next 24-48 hours The impression and plan of care has been dictated by Sherice Molina, Nurse Practitioner as directed. Dr. Bandar MD I have performed a history and examination and MDM of this patient, discussed the same with the dictator, and agree with the dictator's assessment and plan as written ,documented as a scribe. Based on total visit time, I have performed more than 50% of the visit. Objective - Vital Signs Vital signs: Vital Signs Temp 98.1 F 10/29/22 07:43 Pulse 77 10/29/22 07:43 Resp 18 10/29/22 07:43 BP 101/64 10/29/22 07:43 Pulse Ox 93 L 10/29/22 07:43 FiO2 Intake & Output 10/28/22 10/29/22 10/29/22 18:59 06:59 18:59 Intake Total 100 600 Balance 100 600 Intake: Intake, IV Titration 100 100 Amount Cefepime 2 gm In Sodium 100 100 Chloride 0.9% 100 ml @ 25 mls/hr IVPB Q12H [facility] Rx# :[id number] Oral 500 Other: Voiding Method Bedside Commode Bedside Commode # Voids 2 1 - Labs CBC & Chem 7: 10/29/22 10:51 10/29/22 10:51 Labs: Microbiology - Last 24 Hours (Table) 10/24/22 14:48 Anaerobic Culture - Final Knee - Right 10/24/22 14:48 Anaerobic Culture - Final Knee - Right
--- NOTE | 2022-10-29 15:08 | P.PN ---
Subjective Progress Note Date: 10/28/22 Principal diagnosis: Right lower extremity cellulitis Patient is a 77-year-old female with a past medical history negative for diabetes mellitus hypertension hyperlipidemia osteoarthritis presented to the hospital with increasing pain swelling and redness of right lower extremity, patient has been diagnosed with right lower extremity cellulitis , Patient is status post I&D of the right knee with operative report mentioning no extension of infection below the patellar tendon. On today's evaluation that is 10/28/2022 patient remains to be afebrile, the patient is breathing comfortably on 2 L nasal cannula oxygen, the patient denies any chest pain shortness of breath or cough no abdominal pain, the patient pain to the right knee has decreased in intensity, no new symptoms Objective - Vital Signs Vital signs: Vital Signs Temp 98.3 F 10/28/22 07:31 Pulse 87 10/28/22 07:31 Resp 18 10/28/22 07:31 BP 152/69 10/28/22 07:31 Pulse Ox 94 L 10/28/22 07:55 FiO2 Intake & Output 10/27/22 10/28/22 10/28/22 18:59 06:59 18:59 Intake Total 800 Balance 800 Intake: Intake, IV Titration 200 Amount Cefepime 2 gm In Sodium 200 Chloride 0.9% 100 ml @ 25 mls/hr IVPB Q12H [facility] Rx# :[id number] Oral 600 Other: Voiding Method Bedside Commode Bedside Commode Bedside Commode # Voids 1 1 1 - Exam GENERAL DESCRIPTION: An elderly female lying in bed in no distress RESPIRATORY SYSTEM: Unlabored breathing , decreased breath sounds at bases HEART: S1 S2 regular rate and rhythm , ABDOMEN: Soft , no tenderness EXTREMITIES: Right knee incision is currently dressed minimal drainage on the dressing some surrounding swelling and redness - Labs CBC & Chem 7: 10/29/22 10:51 10/29/22 10:51 Labs: Microbiology - Last 24 Hours (Table) 10/24/22 14:48 Gram Stain - Preliminary Knee - Right Wound Culture - Preliminary Gram Neg Bacilli Assessment and Plan (1) Cellulitis of right leg Current Visit: Yes Status: Acute Code(s): L03.115 - CELLULITIS OF RIGHT LOWER LIMB SNOMED Code(s): 014450373 Plan: 1patient with acute right lower extremity cellulitis with rapid progression highly characteristic of streptococcal disease in this patient failing outpatient Bactrim DS therapy did have diffuse swelling and blister formation with subsequently has ruptured leading to some superficial ulceration, on review today the patient was noticed to have significant purulent drainage from the lower end of the right incision concerning for right knee septic arthritis 2-Patient is status post I&D of the right knee and antibiotic bead placement mention no extension below the patella tendon. 3-Patient OR cultures are currently growing gram-negative with ID sensitivities still pending we will continue the patient on cefepime , discharge antibiotics on the basis of the final culture Time with Patient: Less than 30
--- NOTE | 2022-10-29 15:10 | P.PN ---
Subjective Progress Note Date: 10/29/22 Principal diagnosis: Right lower extremity cellulitis Patient is a 77-year-old female with a past medical history negative for diabetes mellitus hypertension hyperlipidemia osteoarthritis presented to the hospital with increasing pain swelling and redness of right lower extremity, patient has been diagnosed with right lower extremity cellulitis , Patient is status post I&D of the right knee with operative report mentioning no extension of infection below the patellar tendon. On today's evaluation that is 10/29/2022 patient denies having any fever or chills, the patient is breathing comfortably on 2 L nasal cannula oxygen, the patient denies any chest pain shortness of breath or cough no abdominal pain, the patient pain to the right knee has decreased in intensity, patient did have problem with her IV which seemed to have infiltrated to the left upper arm Objective - Vital Signs Vital signs: Vital Signs Temp 98.1 F 10/29/22 07:43 Pulse 77 10/29/22 07:43 Resp 18 10/29/22 07:43 BP 101/64 10/29/22 07:43 Pulse Ox 93 L 10/29/22 07:43 FiO2 Intake & Output 10/28/22 10/29/22 10/29/22 18:59 06:59 18:59 Intake Total 100 600 Balance 100 600 Intake: Intake, IV Titration 100 100 Amount Cefepime 2 gm In Sodium 100 100 Chloride 0.9% 100 ml @ 25 mls/hr IVPB Q12H [facility] Rx# :[id number] Oral 500 Other: Voiding Method Bedside Commode Bedside Commode # Voids 2 1 - Exam GENERAL DESCRIPTION: An elderly female lying in bed in no distress RESPIRATORY SYSTEM: Unlabored breathing , decreased breath sounds at bases HEART: S1 S2 regular rate and rhythm , ABDOMEN: Soft , no tenderness EXTREMITIES: Right knee incision is currently dressed no drainage on the dr mari Patient did have swelling and erythema to the left upper extremity site of the IV - Labs CBC & Chem 7: 10/29/22 10:51 10/29/22 10:51 Labs: Abnormal Lab Results - Last 24 Hours (Table) 10/29/22 10/29/22 Range/Units 10:51 10:51 RBC 3.38 L (3.80-5.40) m/uL Hgb 10.0 L (11.4-16.0) gm/dL Hct 31.5 L (34.0-46.0) % Sodium 134 L (137-145) mmol/L Glucose 141 H (74-99) mg/dL Magnesium 1.4 L (1.6-2.3) mg/dL Microbiology - Last 24 Hours (Table) 10/24/22 14:48 Anaerobic Culture - Final Knee - Right 10/24/22 14:48 Anaerobic Culture - Final Knee - Right Assessment and Plan (1) Cellulitis of right leg Current Visit: Yes Status: Acute Code(s): L03.115 - CELLULITIS OF RIGHT LOWER LIMB SNOMED Code(s): 132738218 Plan: 1patient with acute right lower extremity cellulitis with rapid progression highly characteristic of streptococcal disease in this patient failing outpatient Bactrim DS therapy did have diffuse swelling and blister formation with subsequently has ruptured leading to some superficial ulceration, on review today the patient was noticed to have significant purulent drainage from the lower end of the right incision concerning for right knee septic arthritis 2-Patient is status post I&D of the right knee and antibiotic bead placement mention no extension below the patella tendon. 3-Patient OR cultures are currently growing gram-negative with ID sensitivities still pending we will continue the patient on cefepime 4-patient seemed to have issue with her left upper arm IV which was initially reported as a PICC line but does not look like a PICC line possible midline to be discontinued sent to [facility] for culture, and discuss with the METAL WIRE TECHNICIAN for medicine and patient RN Time with Patient: Less than 30
[2022-10-29] MEDS: traMADol 50 MG TAB PO PRN (17:31)
[2022-10-29] MEDS: ATORVASTATIN 20 MG TAB PO SCH (21:19)
[2022-10-29] MEDS: HYDROmorphone 0.5 MG/0.5 ML SYRINGE IVP PRN (22:13)
[2022-10-30] MEDS: CEFEPIME 2 GM in SODIUM CHLORIDE 0.9% 100 ML IVPB SCH ×2 (05:48→14:55)
[2022-10-30] MEDS ORDERED: Magnesium Replacement Protocol 1 EACH MISC MISCELLANE PRN (06:37)
[2022-10-30 08:31] VITALS: PULSE 84; RESP 15
[2022-10-30] MEDS: MAGNESIUM SULFATE-D5W PMX 1 GM in DEXTROSE/WATER 1 100ML.BAG IVPB SCH ×2 (08:38→11:09)
[2022-10-30] MEDS: LETROZOLE 2.5 MG TAB PO SCH (08:39)
[2022-10-30] MEDS: PANTOPRAZOLE 40 MG/10 ML VIAL IVP SCH (08:40)
[2022-10-30] MEDS: CHOLECALCIFEROL 125 MCG (5000 IU) TABLET PO SCH (08:40)
[2022-10-30] MEDS: HEPARIN SODIUM,PORCINE/PF 5,000 UNIT/0.5 ML SYRINGE SQ SCH (08:40)
[2022-10-30] MEDS: FUROSEMIDE 10 MG/ML 2 ML VIAL IV SCH (08:40)
[2022-10-30] MEDS ORDERED: LIDOCAINE 1% INJ 10MG/ML (5 ML VIAL-PF) SQ ONE ×2 (09:06→09:07)
--- NOTE | 2022-10-30 09:34 | IR ---
PICC LINE PLACEMENT: HISTORY: Infection requiring long-term antibiotic therapy PROCEDURE: Ultrasound and fluoroscopic guidance of PICC line placement. COMPLICATIONS: None ANESTHESIA: 1. 1% Lidocaine locally. FINDINGS/TECHNIQUE: The procedure was explained to the patient. The risks, complications, benefits and alternatives were discussed and any questions were answered. Informed consent was obtained. The patient was placed supine on the fluoroscopic table and prepped and draped in the usual sterile fash ion. Utilizing a 21 gauge needle and sonographic and fluoroscopic guidance, access in the right bas ilic vein was achieved and there is placement of a 0.018 guidewire. The vein is patent. A 4-F sheat h was placed over the guidewire. The guidewire and dilator were removed and a 4-F. PICC line was rubina gray through the sheath with the tip at the level of the SVC. The sheath was removed, the catheter wa s flushed and sutured into position. The patient was stable throughout the procedure and remained st able upon discharge from the Department of Radiology. The vein puncture was patent under ultrasound. A blum scale image was obtained to document patency of the vein punctured. All elements of the maximal barrier technique were utilized. FLUOROSCOPY TIME: DAP 0.2487Gy cm2 IMPRESSION: Successful PICC line placement under ultrasound and fluoroscopic guidance.
--- NOTE | 2022-10-30 13:52 | US ---
EXAMINATION TYPE: US venous doppler duplex UE LT DATE OF EXAM: 10/30/2022 COMPARISON: NONE CLINICAL INDICATION: Female, 77 years old with history of arm swelling and redness; left arm edema an d pain midline removed yesterday. SIDE PERFORMED: Left Left Arm: Clot visualize in Cephalic Vein from elbow to Shoulder. There is otherwise deep venous structures demonstrate normal compressibility and augmentation. IMPRESSION: 1. There is extensive thrombosis involving the left cephalic vein compatible superficial venous throm bosis. 2. No diagnostic evidence of DVT
[2022-10-30 15:10] VITALS: BP 130/74; TEMP 98.4
[2022-10-30] MEDS: ACETAMINOPHEN TAB 325 MG TAB PO PRN (16:22)
--- NOTE | 2022-10-30 16:56 | P.PN ---
Subjective Progress Note Date: 10/30/22 Principal diagnosis: Right lower extremity cellulitis Patient is a 77-year-old female with a past medical history negative for diabetes mellitus hypertension hyperlipidemia osteoarthritis presented to the hospital with increasing pain swelling and redness of right lower extremity, patient has been diagnosed with right lower extremity cellulitis , Patient is status post I&D of the right knee with operative report mentioning no extension of infection below the patellar tendon. On today's evaluation that is 10/30/2022 patient remains to be febrile, the patient is breathing comfortably on 2 L nasal cannula oxygen, the patient denies any chest pain shortness of breath or cough no abdominal pain, the patient pain to the right knee has decreased in intensity, patient did get a new PICC line on the right side still have swelling and some discomfort to the left upper arm Objective - Vital Signs Vital signs: Vital Signs Temp 98.8 F 10/30/22 07:35 Pulse 84 10/30/22 07:35 Resp 15 10/30/22 07:35 BP 130/79 10/30/22 07:35 Pulse Ox 94 L 10/30/22 07:35 FiO2 Intake & Output 10/29/22 10/30/22 10/30/22 18:59 06:59 18:59 Other: Voiding Method Bedside Commode Bedside Commode # Voids 2 3 - Exam GENERAL DESCRIPTION: An elderly female lying in bed in no distress RESPIRATORY SYSTEM: Unlabored breathing , decreased breath sounds at bases HEART: S1 S2 regular rate and rhythm , ABDOMEN: Soft , no tenderness EXTREMITIES: Right knee incision is currently dressed no drainage on the dressing Patient did have swelling and erythema to the left upper extremity site of the IV - Labs CBC & Chem 7: 10/29/22 10:51 10/29/22 10:51 Labs: Microbiology - Last 24 Hours (Table) 10/24/22 14:48 Gram Stain - Preliminary Knee - Right Wound Culture - Preliminary Gram Neg Bacilli Assessment and Plan (1) Cellulitis of right leg Current Visit: Yes Status: Acute Code(s): L03.115 - CELLULITIS OF RIGHT LOWER LIMB SNOMED Code(s): 208065658 Plan: 1patient with acute right lower extremity cellulitis with rapid progression highly characteristic of streptococcal disease in this patient failing outpatient Bactrim DS therapy did have diffuse swelling and blister formation with subsequently has ruptured leading to some superficial ulceration, on review today the patient was noticed to have significant purulent drainage from the lower end of the right incision concerning for right knee septic arthritis 2-Patient is status post I&D of the right knee and antibiotic bead placement mention no extension below the patella tendon. 3-Patient OR cultures are currently growing gram-negative which has not been identified but sensitive to cefepime plan is to continue with cefepime 4 weeks and close outpatient follow-up 4-left upper extremity swelling and cold feeling in this patient with the IV at that site which has been discontinued will obtain ultrasound discussed with the X RAY DEVELOPER for admitting team Time with Patient: Less than 30
== END 2022-10-30 17:26 | disposition home health service (06) | DRG 501 ==
LOC: EC 20:00 → 4SSUR 20:56 → 5NMEDONC 23:23
PROVIDERS: ADMIT Family Medicine; ATTEND Family Medicine
PROC: 0L9 Tendons, Drainage (ICD-10-PCS; principal; 2022-10-24 08:35)
PROC: 3E0U029 Introduction of Other Anti-infective into Joints, Open Approach (ICD-10-PCS; principal; 2022-10-24 08:35)
PROC: 02HV33Z Insertion of Infusion Device into Superior Vena Cava, Percutaneous Approach (ICD-10-PCS; 2022-10-30)
DX: T84.53XA Infection and inflammatory reaction due to internal right knee prosthesis, initial encounter (principal); E87.1 Hypo-osmolality and hyponatremia; M00.061 Staphylococcal arthritis, right knee; N17.9 Acute kidney failure, unspecified; L02.415 Cutaneous abscess of right lower limb; L03.115 Cellulitis of right lower limb; Z68.43 Body mass index [BMI] 50.0-59.9, adult; I27.20 Pulmonary hypertension, unspecified; I08.2 Rheumatic disorders of both aortic and tricuspid valves; E11.51 Type 2 diabetes mellitus with diabetic peripheral angiopathy without gangrene; E66.01 Morbid (severe) obesity due to excess calories; B95.61 Methicillin susceptible Staphylococcus aureus infection as the cause of diseases classified elsewhere; E03.9 Hypothyroidism, unspecified; K44.9 Diaphragmatic hernia without obstruction or gangrene; M19.90 Unspecified osteoarthritis, unspecified site; I10 Essential (primary) hypertension; E86.0 Dehydration; E86.1 Hypovolemia; E87.70 Fluid overload, unspecified; E78.5 Hyperlipidemia, unspecified; R74.01 Elevation of levels of liver transaminase levels; Z79.811 Long term (current) use of aromatase inhibitors; Z79.899 Other long term (current) drug therapy; Z86.011 Personal history of benign neoplasm of the brain; Z96.653 Presence of artificial knee joint, bilateral; Z71.3 Dietary counseling and surveillance; Y83.1 Surgical operation with implant of artificial internal device as the cause of abnormal reaction of the patient, or of later complication, without mention of misadventure at the time of the procedure
CPT/HCPCS: 36415; 36573; 71045; 80048; 80053; 80202; 82565; 83036; 83605; 83735; 83880; 84132; 85025; 85652; 86140; 87040; 87070; 87075; 87077; 87186; 87205; 93306; 94760; 96365; 96366; 96367; 96368; 96375; 99284

== ENCOUNTER → 2022-11-26 | Outpatient (CLI) | payer MEDICARE, OTHER ==
[~2022-11-26] MED LIST: SODIUM CHLORIDE 0.9% 500 ML 500 ML in EMPTY BAG 1 BAG IV PRN
[2022-11-26 12:45] VITALS: BP 145/80; PULSE 96; RESP 16; TEMP 98.3
== END ==
LOC: PROCWHC3 11:52
PROVIDERS: ATTEND Internal Medicine Infectious Disease
DX: L03.115 Cellulitis of right lower limb (principal)
CPT/HCPCS: 96365; J0696

== ENCOUNTER 2023-01-20 06:15 | Observation (INO) | payer MEDICARE, OTHER ==
[~2023-01-20 06:15] MED LIST changes: +ACETAMINOPHEN TAB 500 MG TAB PO PRN; +HEPARIN SODIUM,PORCINE/PF 5,000 UNIT/0.5 ML SYRINGE SQ PRN; -SODIUM CHLORIDE 0.9% 500 ML 500 ML in EMPTY BAG 1 BAG IV PRN
[2023-01-20] MEDS ORDERED: droPERidol 5 MG/2 ML VIAL IVP PRN (06:35)
[2023-01-20] MEDS ORDERED: ONDANSETRON 4 MG/2 ML VIAL IVP ONE (06:35)
[2023-01-20] MEDS ORDERED: LIDOCAINE 1% (10MG/ML) FOR IV START INTRADERMA PRN (06:35)
[2023-01-20] MEDS ORDERED: DEXAMETHASONE SOD PHOSPHATE 4 MG/ML 1 ML VIAL IV ONE (06:35)
[2023-01-20] MEDS ORDERED: ALPRAZolam 0.25 MG TAB ONE (06:54)
[2023-01-20] MEDS ORDERED: ALPRAZolam 0.25 MG TAB PO ONE (07:01)
[2023-01-20] MEDS: LACTATED RINGERS 1,000 ML IV SCH (07:05)
[2023-01-20 07:13] LABS: Glucose,Whole Blood 114 mg/dL (70-110)
--- NOTE | 2023-01-20 07:28 | P.GSHP ---
History of Present Illness H&P Date: 01/20/23 Chief Complaint: Bilateral breast cancer 77-year-old female known to our service. Please refer to history and physical from office visit on 12/02. Patient with bilateral breast cancer. Stage IIB on the right and stage IIIB on the left. Patient is undergone neoadjuvant hormonal therapy. Has had improvement in her breast symptoms. Here today for elective surgery. Past Medical History Past Medical History: Cancer, Diabetes Mellitus, GERD/Reflux, Hyperlipidemia, Hypertension, Osteoarthritis (OA) Additional Past Medical History / Comment(s): NIDDM diet controlled, bilateral breast cancer, anemia, L foot drop, cellulitis R lower leg, heart murmur, hiatal hernia, no longer on B/P meds d/t hypotension, bilateral lower leg edema History of Any Multi-Drug Resistant Organisms: None Reported Past Surgical History: Section, Cholecystectomy, Hysterectomy, Joint Replacement Additional Past Surgical History / Comment(s): Jeffrey Knee Replacement, brain BENIGN tumor removed 2000, breast biopsies with bilateral breast markers. Past Anesthesia/Blood Transfusion Reactions: Postoperative Nausea & Vomiting (PONV) Smoking Status: Never smoker - Past Family History Father Family Medical History: Cancer, Myocardial Infarction ([place]) Additional Family Medical History / Comment(s): Bladder CA Mother Family Medical History: Cancer, Coronary Artery Disease (CAD), Myocardial Infarction ([place]) Additional Family Medical History / Comment(s): Stomach CA Medications and Allergies Home Medications Medication Instructions Recorded Confirmed Type Furosemide [Lasix] 20 mg PO QAM 06/05/14 01/16/23 History Simvastatin [Zocor] 40 mg PO HS 06/05/14 01/16/23 History Cholecalciferol (Vitamin D3) 50 mcg PO QAM 05/09/22 01/16/23 History [Vitamin D3 (125 MCG = 5,000 IU)] Omeprazole 20 mg PO HS 05/09/22 01/16/23 History Calcium Carbonate [Calcium] 600 mg PO BID 10/19/22 01/16/23 History Letrozole [Femara] 2.5 mg PO QAM 10/19/22 01/16/23 History Nystatin 100,000 Unit/gm Powd 1 applic TOPICAL BID PRN 10/19/22 01/16/23 History [Mycostatin Powder] Vit C/E/Zn/Coppr/Lutein/Zeaxan 1 cap PO BID 10/19/22 01/16/23 History [Preservision Areds 2 Softgel] Acetaminophen Tab [Tylenol] 650 mg PO Q6HR PRN 01/16/23 01/16/23 History Ferrous Sulfate [Iron (65 MG 325 mg PO QAM 01/16/23 01/16/23 History Elemental)] Magnesium 250 mg PO QAM 01/16/23 01/16/23 History Nystatin [Nystop] 1 applic TOPICAL BID 01/16/23 01/16/23 History Ondansetron [Zofran] 4 mg PO BID 01/16/23 01/16/23 History Psyllium Husk [Metamucil] 3 cap PO QAM 01/16/23 01/16/23 History Allergies Allergy/AdvReac Type Severity Reaction Status Date / Time cefepime Allergy Confusion Verified 01/20/23 06:48 Surgical - Exam Vital Signs Temp Pulse Resp BP Pulse Ox 97.1 F L 78 18 175/73 97 01/20/23 07:00 01/20/23 07:00 01/20/23 07:00 01/20/23 07:00 01/20/23 07:00 Physical exam: General: Well-developed, well-nourished HEENT: Normocephalic, sclerae nonicteric Right breast: Small mass 3:00 and 9:00 decreased from previous, no palpable adenopathy Left breast: Abnormal skin thickening left lateral mammary fold decreased in size, persistent adenopathy Abdomen: Nontender, nondistended Extremities: No edema Neuro: Alert and oriented Results - Labs Abnormal Lab Results - Last 24 Hours (Table) 01/20/23 Range/Units 07:10 POC Glucose (mg/dL) 114 H (70-110) mg/dL Assessment and Plan (1) Bilateral breast cancer Narrative/Plan: 77-year-old female with bilateral breast cancer. We'll proceed with right breast simple mastectomy with sentinel lymph node biopsy, left breast modified radical mastectomy with wire localization previously biopsied left axillary lymph node. Risks again reviewed and noted to include bleeding infection seroma scarring dimpling pain nerve injury numbness recurrence lymphedema possible need for additional surgeries. Patient is agreeable and wishes to proceed. Current Visit: Yes Status: Acute Code(s): C50.911 - MALIGNANT NEOPLASM OF UNSP SITE OF RIGHT FEMALE BREAST; C50.912 - MALIGNANT NEOPLASM OF UNSPECIFIED SITE OF LEFT FEMALE BREAST SNOMED Code(s): 277436791
[2023-01-20] MEDS ORDERED: LIDOCAINE 1% INJ 10MG/ML (20 ML MDV) SQ ONE (08:27)
[2023-01-20] MEDS ORDERED: LIDOCAINE 2% INJ 20 MG/ML (2 ML VIAL) ONE (09:13)
[2023-01-20] MEDS ORDERED: MIDAZOLAM 2 MG/2 ML VIAL ONE (09:13)
[2023-01-20] MEDS ORDERED: fentaNYL (PF) 50 MCG/ML 2 ML AMP ONE (09:13)
[2023-01-20] MEDS ORDERED: SUCCINYLCHOLINE CHLORIDE 200 MG/10 ML VIAL IV ONE (09:13)
[2023-01-20] MEDS ORDERED: HYDROmorphone (PF) 1 MG/ML ONE (09:13)
[2023-01-20] MEDS ORDERED: PROPOFOL 10 MG/ML 20 ML VIAL IV ONE (09:13)
[2023-01-20] MEDS ORDERED: ePHEDrine 50 MG/ML 1 ML VIAL ONE (09:13)
[2023-01-20] MEDS ORDERED: METHYLENE BLUE 50 MG/10 ML AMPUL MISCELLANE ONE (09:17)
--- NOTE | 2023-01-20 09:38 | NM ---
EXAMINATION TYPE: NM sentinel node injection DATE OF EXAM: 01/20/2023 COMPARISON: Mammography 05/22/2022. CLINICAL INDICATION: Female, 77 years old with history of MALIGNANT NEOPLASM OF UNSP SITE OF UNSPECIF IED FEM; TECHNIQUE AND FINDINGS: The procedure of sentinel lymph node injection was explained to the patient. The benefits, alternatives, and risks were discussed. An informed consent was then obtained. Overlying skin is cleaned with sterile alcohol. Following this, 432 uCi Tc99m Tilmanocept was inject ed in the upper outer aspect of the Right nipple intradermally. The patient tolerated the procedure well without any immediate complication. The patient was kept in the radiology department for short stay after the procedure and then taken to surgery for surgical p rocedure what is presumed intraoperative gamma probe will be used for sentinel lymph node detection. IMPRESSION: Right breast radiotracer injection for sentinel node localization as above.
[2023-01-20] MEDS ORDERED: LACTATED RINGERS 1,000 ML IV ONE (10:32)
[2023-01-20] MEDS ORDERED: NALOXONE 0.4 MG/ML 1 ML VIAL IV PRN (12:50)
[2023-01-20] MEDS ORDERED: traMADol 50 MG TAB PO PRN (12:52)
[2023-01-20] MEDS ORDERED: ONDANSETRON 4 MG/2 ML VIAL IVP PRN (12:52)
[2023-01-20] MEDS ORDERED: HYDROmorphone 1 MG/ML 1 ML SYRINGE IVP PRN (12:52)
[2023-01-20] MEDS ORDERED: ACETAMINOPHEN TAB 325 MG TAB PO PRN (12:52)
--- NOTE | 2023-01-20 13:03 | P.OP ---
Date of Procedure: 01/20/23 Procedure(s) Performed: PREOPERATIVE DIAGNOSIS: Bilateral breast cancer POSTOPERATIVE DIAGNOSIS: Same PROCEDURE: Left modified radical mastectomy with wire localization left axillary lymph node, right simple mastectomy, right sentinel lymph node biopsy SURGEON: Liban EBL: 50 mL ANESTHESIA: General COMPLICATIONS: None OPERATIVE PROCEDURE: Patient was placed on the operating room table in the supine position. 2 mL of methylene blue was injected into the LEFT subareolar space. The breast was then massaged for 5 minutes. The upper torso anteriorly was prepped and draped in usual sterile fashion. A skin marker was used to draw out the proposed skin incisions bilaterally. The skin incisions went inferior to the inframammary fold because of the left-sided tumor involving the skin. We then started our surgery with the right hand side. A wide elliptical incision was made extending from the right parasternal border to the left posterior axillary line. Flaps were raised inferiorly and superiorly using electrocautery. The breast tissue was removed from the chest wall using electrocautery. Larger vessels were either clipped or divided using LigaSure. The right sentinel lymph nodes were excised while the breast was still attached by the right axillary tail. A total of 3 sentinel lymph nodes were identified and removed. These were not blue in color but were radioactive. No residual radioactivity in the axilla was identified. He's had a benign clinical appearance. The surgical site was carefully reviewed with saline. No bleeding was seen. Gelfoam powder was used throughout the surgical field. 2 drains were placed exiting near the anterior axillary line inferiorly. These are both sutured in place using 2-0 silk sutures. The incision was then closed using interrupted 3-0 Vicryl deep dermal sutures. A running 4-0 Monocryl subcuticular suture was then used to close the skin. The left side was then addressed. No sentinel node was taking place on the side therefore no retroareolar injection took place. Incisions were made in a similar fashion on the side. Skin flaps w ere raised in a similar fashion as well. The breast was removed from the chest wall without difficulty. The tumor did not appear to be involving the posterior margin of the breast at the chest wall. A formal axillary dissection then took place. The axillary vein was identified. The axillary contents were then swept inferiorly. Visual vessel was divided using 3-0 silk ties. The course of the long thoracic and thoracodorsal nerve were identified. The axillary contents were excised using both electrocautery, blunt dissection, and LigaSure. This was included with our mastectomy specimen. We then irrigated with saline again. No bleeding was seen. Gelfoam powder was again utilized. 2 drains were placed in a similar fashion. The mastectomy incision was closed in identical fashion. Fibrin glue tape was then used along the length of both incisions. Sterile dressings were applied. Sterile dressings were applied. DISPOSITION: Stable to recovery room
[2023-01-20] MEDS: HYDROmorphone 0.5 MG/0.5 ML SYRINGE IVP PRN ×2 (13:39→14:59)
--- NOTE | 2023-01-20 14:31 | MM ---
Reason for Exam: Hx of breast cancer, mastectomy. Last screening mammogram was performed 8 month(s) ago. Patient History: Menarche at age 14. First Full-Term at age 22. Hysterectomy at age 34. Breast cancer, left, age 76. Breast cancer, right, age 76. Patient used Estrogen for 2 years. 05/24/2022, Malignant US biopsy breast VAD LT on the left side. 05/24/2022, US biopsy breast add'l VAD LT on the Left side. 05/24/2022, US biopsy breast add'l VAD LT on the Left side. 05/22/2022, Malignant US biopsy breast VAD RT on the right side. 05/22/2022, US biopsy breast add'l VAD RT on the Right side. Maternal aunt had breast cancer. Maternal aunt had breast cancer. Maternal aunt had breast cancer. Prior Study Comparison: 05/08/2022 Bilateral MG 3D work up w/cad DIVYA, [facility]. 05/22/2022 Right MG diagnostic mammo RT wo CAD, [facility]. 05/24/2022 Left MG diagnostic mammo LT wo CAD., [facility]. Tissue Density: Left: The breast tissue is heterogeneously dense. This may lower the sensitivity of mammography. Analyzed By CAD. Management: Canceled Procedure Cancelation reason: Other. COULD NOT LOC ON MAMM SENT TO us. Electronically signed and approved by: Marcos Smith DO
[2023-01-20] MEDS: D5-0.45% NACL WITH KCL 20MEQ/L 1,000 ML IV SCH (16:30)
--- NOTE | 2023-01-20 20:17 | USB ---
EXAMINATION TYPE: US breast localization LT DATE OF EXAM: 01/20/2023 8:45 AM CLINICAL INDICATION:Female, 77 years old with history of Malignant neoplasm of unsp site of unspecifi ed fem; COMPARISON: Mammogram same date, prior biopsy 05/24/2022, 05/24/2022 ultrasound. PROCEDURE: The procedure was explained to the patient and all questions were answered. The potential risks inclu ding but not limited to bleeding, infection, and potential need for additional work up were discussed . Informed, written consent was obtained. The correct site was marked. A time out was performed. A mammogram guided wire localization was performed for the lymph node/mass located in the left breast and axilla. This was described on the previous report. The skin was prepped in the usual manner. Loc al anesthetic was administered to the access site using approximately 8 mL of lidocaine. The abnormal ity was approached from the superior aspect.?A Kopans needle was placed adjacent to the abnormality u nder mammographic guidance and confirmatory mammography images were obtained to document correct need le placement. ?Once the needle was documented to be in the correct location, the wire was deployed. T he needle was removed. Post-procedure mammographic images were obtained to document positioning. The wire was secured to the patient's skin with a dressing. The patient tolerated the procedure well and left the department in good. Post procedure mammogram confirms location of needle localization. Specimen was obtained and containe d both the lesion, clip and the wire. IMPRESSION: Successful mammogram guided wire localization of left breast lymph node and mass
[2023-01-20] MEDS: HYDROcodone/APAP 5-325MG 1 EACH TAB PO PRN (21:46)
[2023-01-20] MEDS: FAMOTIDINE 20 MG TAB PO SCH (21:46)
[2023-01-20] MEDS: HEPARIN SODIUM,PORCINE 5,000 UNIT/ML 1 ML VIAL SQ SCH (21:46)
[2023-01-20] MEDS: DOCUSATE 100 MG CAP PO SCH (21:46)
[2023-01-21] MEDS: HYDROcodone/APAP 5-325MG 1 EACH TAB PO PRN ×3 (03:39→12:12)
[2023-01-21] MEDS: HEPARIN SODIUM,PORCINE 5,000 UNIT/ML 1 ML VIAL SQ SCH ×2 (08:03→20:49)
[2023-01-21] MEDS: DOCUSATE 100 MG CAP PO SCH ×2 (08:03→20:48)
[2023-01-21] MEDS: FAMOTIDINE 20 MG TAB PO SCH ×2 (08:03→20:48)
[2023-01-21 09:26] LABS: Basophils # (A) 0.02 X 10*3/uL (0.00-0.10); Basophils % (A) 0.2 %; Eosinophils # (A) 0 X 10*3/uL (0.04-0.35); Eosinophils % (A) 0 %; MCV 90.1 FL (80.0-97.0); Mean Platelet Volume 10.9 FL (9.5-12.2); Monocytes # (A) 0.68 X 10*3/uL (0.20-1.00); Monocytes % (A) 5.5 %; NRBC Per 100 WBC 0 X 10*3/uL (0.00-0.01); Neutrophils # (A) 9.94 X 10*3/uL (1.80-7.70); Neutrophils % (A) 80.4 %; Platelet Count 247 X 10*3/uL (140-440); RBC 3.33 X 10*6/uL (4.10-5.20); RDW 13.7 % (11.5-14.5); WBC 12.35 X 10*3/uL (4.50-10.00)
[2023-01-21] MEDS: LACTATED RINGERS 1,000 ML IV SCH (10:00)
--- NOTE | 2023-01-21 11:38 | P.PN ---
Subjective Progress Note Date: 01/21/23 CHIEF COMPLAINT: Bilateral breast cancer HISTORY OF PRESENT ILLNESS: Patient is postop day #1 status post Left modified radical mastectomy with wire localization left axillary lymph node, right simple mastectomy, right sentinel lymph node biopsy. Patient did report pain this morning and just received pain medications. She just hungry and wants to try the regular diet. She denies any nausea or vomiting. Afebrile. WBC 12.35 Hgb 9.0 PHYSICAL EXAM: VITAL SIGNS: Reviewed. GENERAL: Well-developed in no acute distress. Chest: Dressings across both breasts are clean dry and intact. Patient has 2 DMITRI drains in both the right and left breasts with sanguinous output. Binder is intact. ASSESSMENT: 1. Bilateral breast cancer PLAN: -Continue regular diet -Continue pain management -Continue to monitor DMITRI drain output -Repeat CBC in a.m. -Encouraged patient to increase activity level -DVT prophylaxis subcu heparin Physician Robot Programmer note has been reviewed by physician. Signing provider agrees with the documented findings, assessment, and plan of care. I have personally seen and examined the patient, reviewed the MAINTENANCE SERVICE SUPERVISOR /PAs history, exam and MDM and agree with the assessment and plan as written. Based on total visit time, I have performed more than 50% of the visit. As above: Patient doing fairly well. Mild discomfort. Drain output noted. Surgical dressing removed. No sizable hematoma appreciated, no ecchymosis, minimal tenderness, incision clean and dry, dressings are dry. Continue stripping drains and monitoring output. Increase activity. Recheck labs tomorrow. Anticipate probable discharge tomorrow. Objective - Vital Signs Vital signs: Vital Signs Temp 98.4 F 01/21/23 07:00 Pulse 71 01/21/23 07:00 Resp 14 01/21/23 07:00 BP 144/71 01/21/23 07:00 Pulse Ox 100 01/21/23 07:00 FiO2 Intake & Output 01/20/23 01/21/23 01/21/23 18:59 06:59 18:59 Intake Total 2150 Output Total 50 280 Balance 2100 -280 Intake: IV 2150 Output: Drainage 280 Bilateral Chest 280 Estimated Blood Loss 50 Other: Voiding Method Bedpan # Voids 1 1 - Labs CBC & Chem 7: 01/21/23 05:48 Labs: Abnormal Lab Results - Last 24 Hours (Table) 01/21/23 Range/Units 05:48 WBC 12.35 H (4.50-10.00) X 10*3/uL RBC 3.33 L (4.10-5.20) X 10*6/uL Hgb 9.0 L (12.0-15.0) d/dL Hct 30.0 L (37.2-46.3) % MCHC 30.0 L (32.0-37.0) d/dL Neutrophils # 9.94 H (1.80-7.70) X 10*3/uL Eosinophils # 0 L (0.04-0.35) X 10*3/uL
[2023-01-21] MEDS ORDERED: ONDANSETRON 4 MG TAB PO SCH (12:15)
[2023-01-21] MEDS ORDERED: PANTOPRAZOLE 40 MG/10 ML VIAL IVP SCH (12:15)
[2023-01-21] MEDS: HYDROmorphone 0.5 MG/0.5 ML SYRINGE IVP PRN ×2 (12:58→20:48)
[2023-01-21] MEDS: VIT A,C & E-LUTEIN-MINERALS 1 EACH TAB PO SCH ×2 (13:27→20:49)
[2023-01-21] MEDS: MAGNESIUM OXIDE 400 MG TAB PO SCH (13:28)
[2023-01-21] MEDS: PSYLLIUM HUSK 100% 6 GM PACKET PO SCH (13:28)
[2023-01-21] MEDS: D5-0.45% NACL WITH KCL 20MEQ/L 1,000 ML IV SCH (13:28)
[2023-01-21] MEDS ORDERED: DEXTROSE 50% SYRINGE 50 ML IVP PRN ×2 (16:10)
--- NOTE | 2023-01-21 16:13 | P.NAPBC ---
NAPBC Queries - NAPBC Queries Was patient's case review presented at [facility] tumor board? If no, comment.: Yes Was patient's pathology reviewed at [facility]? If no, comment.: Yes Was breast conservation surgery offered? If no, comment.: No (Patient not a mastectomy candidate on the left, conservation offered on the) Was sentinel node biopsy offered? If no, comment.: Yes Was diagnosis confirmed by percutaneous core biopsy? If no, comment.: Yes Is patient mastectomy patient?: Yes Was a preop referral to reconstructive surgeon offered?: Yes Clinical Stage: 3 left 2 right
--- NOTE | 2023-01-21 16:25 | P.CONS ---
History of Present Illness - Reason for Consult Consult date: 01/21/23 Medical management - History of Present Illness This is a 77-year-old female admitted with bilateral breast cancer status post left modified radical mastectomy with wire localization left axillary lymph node, right simple mastectomy, right sentinel lymph node biopsy, in a patient with past medical history significant for diabetes mellitus, gastroesophageal reflux disease, hypertension, hyperlipidemia, osteoarthritis, diabetes mellitus and multiple other medical issues.Tolerated procedure well. Denies chest pain, palpitations or shortness of breath. Reports surgical discomfort. Tolerating clear diet without nausea or vomiting, requesting diet advancement. Afebrile. Review of Systems ROS Statement: Those systems with pertinent positive or pertinent negative responses have been documented in the HPI. ROS Other: All systems not noted in ROS Statement are negative. Past Medical History Past Medical History: Cancer, Diabetes Mellitus, GERD/Reflux, Hyperlipidemia, Hypertension, Osteoarthritis (OA) Additional Past Medical History / Comment(s): NIDDM diet controlled, bilateral b reast cancer, anemia, L foot drop, cellulitis R lower leg, heart murmur, hiatal hernia, no longer on B/P meds d/t hypotension, bilateral lower leg edema History of Any Multi-Drug Resistant Organisms: None Reported Past Surgical History: Section, Cholecystectomy, Hysterectomy, Joint Replacement Additional Past Surgical History / Comment(s): Jeffrey Knee Replacement, brain BENIGN tumor removed 2000, breast biopsies with bilateral breast markers. Past Anesthesia/Blood Transfusion Reactions: Postoperative Nausea & Vomiting (PONV) Smoking Status: Never smoker - Past Family History Father Family Medical History: Cancer, Myocardial Infarction ([place]) Additional Family Medical History / Comment(s): Bladder CA Mother Family Medical History: Cancer, Coronary Artery Disease (CAD), Myocardial Infarction ([place]) Additional Family Medical History / Comment(s): Stomach CA Medications and Allergies Home Medications Medication Instructions Recorded Confirmed Type Furosemide [Lasix] 20 mg PO QAM 06/05/14 01/16/23 History Simvastatin [Zocor] 40 mg PO HS 06/05/14 01/16/23 History Cholecalciferol (Vitamin D3) 50 mcg PO QAM 05/09/22 01/16/23 History [Vitamin D3 (125 MCG = 5,000 IU)] Omeprazole 20 mg PO HS 05/09/22 01/16/23 History Calcium Carbonate [Calcium] 600 mg PO BID 10/19/22 01/16/23 History Letrozole [Femara] 2.5 mg PO QAM 10/19/22 01/16/23 History Nystatin 100,000 Unit/gm Powd 1 applic TOPICAL BID PRN 10/19/22 01/16/23 History [Mycostatin Powder] Vit C/E/Zn/Coppr/Lutein/Zeaxan 1 cap PO BID 10/19/22 01/16/23 History [Preservision Areds 2 Softgel] Acetaminophen Tab [Tylenol] 650 mg PO Q6HR PRN 01/16/23 01/16/23 History Ferrous Sulfate [Iron (65 MG 325 mg PO QAM 01/16/23 01/16/23 History Elemental)] Magnesium 250 mg PO QAM 01/16/23 01/16/23 History Nystatin [Nystop] 1 applic TOPICAL BID 01/16/23 01/16/23 History Ondansetron [Zofran] 4 mg PO BID 01/16/23 01/16/23 History Psyllium Husk [Metamucil] 3 cap PO QAM 01/16/23 01/16/23 History Allergies Allergy/AdvReac Type Severity Reaction Status Date / Time cefepime Allergy Confusion Verified 01/20/23 06:48 Physical Exam Vitals: Vital Signs Temp Pulse Resp BP Pulse Ox 01/21/23 15:00 98.3 F 75 17 97/46 96 01/21/23 07:00 98.4 F 71 14 144/71 100 01/21/23 02:50 97.9 F 74 12 106/61 98 01/20/23 19:57 97.6 F 97 18 106/59 99 Intake and Output 01/21/23 01/21/23 01/21/23 06:59 14:59 22:59 Output Total 140 130 Balance -140 -130 Output: Drainage 140 130 Bilateral Chest 140 Left Chest 80 Right Chest 50 Other: # Voids 1 1 - Exam GENERAL: Alert and oriented x3, NAD. CARDIOVASCULAR: S1 and S2 present. No murmurs, rubs, or gallops. PULMONARY: Unlabored ,Chest is clear to auscultation, bilateral bases diminished.no wheezing , no crackles. Wearing binder, DMITRI 2 with sanguinous drainage. ABDOMEN: Soft, nontender, nondistended, +BS. -EXTREMITIES: No cyanosis, clubbing, or pedal edema. Right Lower extremity dressing present. NEUROLOGICAL: Gross neurological examination did not reveal any focal deficits. SKIN: No rashes. Warm and dry. Results CBC & Chem 7: 01/21/23 05:48 Labs: Abnormal Lab Results - Last 24 Hours (Table) 01/21/23 Range/Units 05:48 WBC 12.35 H (4.50-10.00) X 10*3/uL RBC 3.33 L (4.10-5.20) X 10*6/uL Hgb 9.0 L (12.0-15.0) d/dL Hct 30.0 L (37.2-46.3) % MCHC 30.0 L (32.0-37.0) d/dL Neutrophils # 9.94 H (1.80-7.70) X 10*3/uL Eosinophils # 0 L (0.04-0.35) X 10*3/uL Assessment and Plan Assessment: Bilateral breast cancer status post left modified radical mastectomy with wire localization left axillary lymph node, right simple mastectomy, right sentinel lymph node biopsy Diabetes mellitus, A1c pending Hypertension Hyperlipidemia History of osteoarthritis Hypothyroidism Morbid obesity BMI 53 Plan: Continue on current medication regime ,monitoring and symptomatic treatment. Tight blood sugar control, sliding scale , hemoglobin A1c ordered. IV Antibiotics.Diet advanced this morning.Pain management as per primary. Aggressive pulmonary toileting with incentive spirometer ordered. Increase ambulation as tolerated. Thank you for the consult, Dr. Louie. The impression and plan of care has been dictated as directed. : I performed a history and examination of this patient, discussed the same with the dictator. I agree with the dictator's note ,documented as a scribe. Any additional findings or plans will be noted.
[2023-01-21 17:41] LABS: Glucose,Whole Blood 142 mg/dL (70-110)
[2023-01-21] MEDS: INSULIN ASPART (NovoLOG) 100 UNIT/ML VIAL SQ SCH ×2 (18:45→20:39)
[2023-01-21 20:26] LABS: Glucose,Whole Blood 139 mg/dL (70-110)
[2023-01-21] MEDS: ATORVASTATIN 20 MG TAB PO SCH (20:48)
[2023-01-22] MEDS: HYDROcodone/APAP 5-325MG 1 EACH TAB PO PRN ×5 (02:14→21:00)
[2023-01-22] MEDS: LACTATED RINGERS 1,000 ML IV SCH (04:20)
[2023-01-22] MEDS: HYDROmorphone 0.5 MG/0.5 ML SYRINGE IVP PRN (04:57)
[2023-01-22] MEDS: D5-0.45% NACL WITH KCL 20MEQ/L 1,000 ML IV SCH (05:40)
[2023-01-22] MEDS: INSULIN ASPART (NovoLOG) 100 UNIT/ML VIAL SQ SCH ×4 (05:53→20:59)
[2023-01-22 06:09] LABS: Glucose,Whole Blood 123 mg/dL (70-110)
[2023-01-22] MEDS: VIT A,C & E-LUTEIN-MINERALS 1 EACH TAB PO SCH ×2 (09:29→21:02)
[2023-01-22] MEDS: PSYLLIUM HUSK 100% 6 GM PACKET PO SCH (09:29)
[2023-01-22] MEDS: MAGNESIUM OXIDE 400 MG TAB PO SCH (09:29)
[2023-01-22] MEDS: HEPARIN SODIUM,PORCINE 5,000 UNIT/ML 1 ML VIAL SQ SCH ×2 (09:29→21:03)
[2023-01-22] MEDS: FAMOTIDINE 20 MG TAB PO SCH ×2 (09:29→21:00)
[2023-01-22] MEDS: DOCUSATE 100 MG CAP PO SCH ×2 (09:29→21:02)
--- NOTE | 2023-01-22 11:36 | P.PN ---
Subjective Progress Note Date: 01/22/23 CHIEF COMPLAINT: Bilateral breast cancer HISTORY OF PRESENT ILLNESS: Patient is postop day #2 status post Left modified radical mastectomy with wire localization left axillary lymph node, right simple mastectomy, right sentinel lymph node biopsy. Patient reports her pain is controlled. She is requiring the IV Dilaudid with the [place]. Patient does report pain with movement. Patient tolerating diet. Afebrile. DMITRI drain left chest 55 mL serosanguineous output. Right chest 50 mL serosanguineous output through the night. Patient does not feel ready for discharge. CBC for today pending PHYSICAL EXAM: VITAL SIGNS: Reviewed. GENERAL: Well-developed in no acute distress. Chest: Bilateral incisions clean dry and intact. No bruising or hematoma noted. DMITRI drains with serosanguineous output. ASSESSMENT: 1. Bilateral breast cancer PLAN: -Continue regular diet -Continue pain management. Work on weaning off of the IV Dilaudid -Continue to monitor DMITRI drain output -Repeat CBC in a.m. -Encouraged patient to ambulate -DVT prophylaxis subcu heparin Physician Roll Tender note has been reviewed by physician. Signing provider agrees with the documented findings, assessment, and plan of care. I have personally seen and examined the patient, reviewed the CUT ROLL MACHINE OPERATOR /PAs history, exam and MDM and agree with the assessment and plan as written. Based on total visit time, I have performed more than 50% of the visit. As above: Patient doing well today. Drain output is decreased and is more sero sanguineous in appearance. Continue increasing activity. Plan discharge tomorrow. Objective - Vital Signs Vital signs: Vital Signs Temp 98.3 F 01/22/23 07:00 Pulse 69 01/22/23 07:00 Resp 16 01/22/23 07:00 BP 117/71 01/22/23 07:00 Pulse Ox 94 L 01/22/23 07:00 FiO2 Intake & Output 01/21/23 01/22/23 01/22/23 18:59 06:59 18:59 Output Total 230 180 Balance -230 -180 Output: Drainage 230 180 Left Chest 150 90 Right Chest 80 90 Other: Voiding Method Bedpan # Voids 1 2 - Labs CBC & Chem 7: 01/21/23 05:48 Labs: Abnormal Lab Results - Last 24 Hours (Table) 01/21/23 01/21/23 01/22/23 Range/Units 17:40 20:23 05:52 POC Glucose (mg/dL) 142 H 139 H 123 H (70-110) mg/dL
[2023-01-22 12:07] LABS: Glucose,Whole Blood 109 mg/dL (70-110)
--- NOTE | 2023-01-22 15:07 | P.PN ---
Subjective Progress Note Date: 01/22/23 - History of Present Illness (01/21/23) This is a 77-year-old female admitted with bilateral breast cancer status post left modified radical mastectomy with wire localization left axillary lymph node, right simple mastectomy, right sentinel lymph node biopsy, in a patient with past medical history significant for diabetes mellitus, gastroesophageal reflux disease, hypertension, hyperlipidemia, osteoarthritis, diabetes mellitus and multiple other medical issues.Tolerated procedure well. Denies chest pain, palpitations or shortness of breath. Reports surgical discomfort. Tolerating clear diet without nausea or vomiting, requesting diet advancement. Afebrile. 01/22/2023 reports better pain control this morning. Pain management. Tolerating regular diet with no nausea vomiting or diarrhea. Afebrile. Labs pending. Denies chest pain, palpitations or shortness of breath. Maintaining O2 sats in the 90s on room air. Objective - Vital Signs Vital signs: Vital Signs Temp 98.3 F 01/22/23 07:00 Pulse 69 01/22/23 07:00 Resp 16 01/22/23 07:00 BP 117/71 01/22/23 07:00 Pulse Ox 94 L 01/22/23 07:00 FiO2 Intake & Output 01/21/23 01/22/23 01/22/23 18:59 06:59 18:59 Output Total 230 180 Balance -230 -180 Output: Drainage 230 180 Left Chest 150 90 Right Chest 80 90 Other: Voiding Method Bedpan # Voids 1 2 - Exam GENERAL: Alert and oriented x3, NAD. CARDIOVASCULAR: S1 and S2 present. No murmurs, rubs, or gallops. PULMONARY: Unlabored ,Chest is clear to auscultation, bilateral bases diminished.no wheezing , no crackles. Wearing binder, DMITRI 2 with seroanguinous drainage. ABDOMEN: Soft, nontender, nondistended, +BS. -EXTREMITIES: No cyanosis, clubbing, or pedal edema. NEUROLOGICAL: Gross neurological examination did not reveal any focal deficits. SKIN: No rashes. Warm and dry. - Labs CBC & Chem 7: 01/21/23 05:48 Labs: Abnormal Lab Results - Last 24 Hours (Table) 01/21/23 01/21/23 01/22/23 Range/Units 17:40 20:23 05:52 POC Glucose (mg/dL) 142 H 139 H 123 H (70-110) mg/dL Assessment and Plan Assessment: Bilateral breast cancer status post left modified radical mastectomy with wire localization left axillary lymph node, right simple mastectomy, right sentinel lymph node biopsy Diabetes mellitus, A1c pending Hypertension Hyperlipidemia History of osteoarthritis Hypothyroidism Morbid obesity BMI 53 Plan: Continue on current medication regime ,monitoring and symptomatic treatment. Continue with aggressive pulmonary toileting with incentive spirometer reinforced. Increase ambulation as tolerated.labs/hemoglobin pend ing.Discharge planning in progress for tomorrow as per surgery. The impression and plan of care has been dictated as directed. : I performed a history and examination of this patient, discussed the same with the dictator. I agree with the dictator's note ,documented as a scribe. Any additional findings or plans will be noted.
[2023-01-22 17:06] LABS: Glucose,Whole Blood 112 mg/dL (70-110)
[2023-01-22 20:51] LABS: Glucose,Whole Blood 148 mg/dL (70-110)
[2023-01-22] MEDS: ATORVASTATIN 20 MG TAB PO SCH (21:02)
[2023-01-23] MEDS: D5-0.45% NACL WITH KCL 20MEQ/L 1,000 ML IV SCH (01:34)
[2023-01-23] MEDS: HYDROcodone/APAP 5-325MG 1 EACH TAB PO PRN ×3 (01:35→11:30)
[2023-01-23] MEDS: LACTATED RINGERS 1,000 ML IV SCH (04:33)
[2023-01-23 06:03] LABS: Glucose,Whole Blood 116 mg/dL (70-110)
[2023-01-23] MEDS: INSULIN ASPART (NovoLOG) 100 UNIT/ML VIAL SQ SCH (06:11)
[2023-01-23 08:10] VITALS: BP 134/76; PULSE 81; RESP 16; TEMP 98
[2023-01-23] MEDS: VIT A,C & E-LUTEIN-MINERALS 1 EACH TAB PO SCH (08:43)
[2023-01-23] MEDS: DOCUSATE 100 MG CAP PO SCH (08:43)
[2023-01-23] MEDS: HEPARIN SODIUM,PORCINE 5,000 UNIT/ML 1 ML VIAL SQ SCH (08:43)
[2023-01-23] MEDS: FAMOTIDINE 20 MG TAB PO SCH (08:43)
[2023-01-23] MEDS: PSYLLIUM HUSK 100% 6 GM PACKET PO SCH (08:43)
[2023-01-23] MEDS: MAGNESIUM OXIDE 400 MG TAB PO SCH (08:43)
[2023-01-23 08:58] LABS: HCT 28.3 % (37.2-46.3); HGB 8.5 d/dL (12.0-15.0); MCV 89.8 FL (80.0-97.0); Mean Platelet Volume 10.9 FL (9.5-12.2); NRBC Per 100 WBC 0 X 10*3/uL (0.00-0.01); Platelet Count 225 X 10*3/uL (140-440); RBC 3.15 X 10*6/uL (4.10-5.20); RDW 14.1 % (11.5-14.5); WBC 7.57 X 10*3/uL (4.50-10.00)
--- NOTE | 2023-01-23 10:37 | P.DS ---
Providers Date of admission: 01/21/23 13:29 Expected date of discharge: 01/23/23 Attending physician: Freedom Louie Consults: 01/20/23 12:52 Consult Physician Routine Consulting Provider: Arturo Collado Consult Reason/Comments: Medical management Do you want consulting provider notified?: Yes Primary care physician: Arturo Collado Hospital Course: Discharge diagnosis 1. Bilateral breast cancer status post Left modified radical mastectomy with wire localization left axillary lymph node, right simple mastectomy, right sentinel lymph node biopsy Hospital course This is a 77-year-old female with history of bilateral breast cancer she is status post Left modified radical mastectomy with wire localization left axillary lymph node, right simple mastectomy, right sentinel lymph node biopsy her pain is controlled. She is afebrile. She is tolerating diet. She has been up and ambulating. Incision sites are clean dry and intact. She is stable for discharge. Please refer to chart for any further details. Physician Controller Operations And Hr Manager note has been reviewed by physician. Signing provider agrees with the documented findings, assessment, and plan of care. Patient Condition at Discharge: Stable Plan - Discharge Summary Discharge Rx Participant: No New Discharge Prescriptions: New HYDROcodone/APAP 5-325MG [[place] 5-325] 1 tab PO Q6HR PRN 3 Days #12 tab PRN Reason: Pain Docusate [Colace] 100 mg PO BID #30 capsule Continue Simvastatin [Zocor] 40 mg PO HS Furosemide [Lasix] 20 mg PO QAM Cholecalciferol (Vitamin D3) [Vitamin D3 (125 MCG = 5,000 IU)] 50 mcg PO QAM Letrozole [Femara] 2.5 mg PO QAM Calcium Carbonate [Calcium] 600 mg PO BID Vit C/E/Zn/Coppr/Lutein/Zeaxan [Preservision Areds 2 Softgel] 1 cap PO BID Ondansetron [Zofran] 4 mg PO BID Ferrous Sulfate [Iron (65 MG Elemental)] 325 mg PO QAM Omeprazole 20 mg PO HS Psyllium Husk [Metamucil] 3 cap PO QAM Magnesium 250 mg PO QAM Discontinued Nystatin 100,000 Unit/gm Powd [Mycostatin Powder] 1 applic TOPICAL BID PRN PRN Reason: Rash Nystatin [Nystop] 1 applic TOPICAL BID Acetaminophen Tab [Tylenol] 650 mg PO Q6HR PRN PRN Reason: Headache Discharge Medication List Furosemide [Lasix] 20 mg PO QAM 06/05/14 [History] Simvastatin [Zocor] 40 mg PO HS 06/05/14 [History] Cholecalciferol (Vitamin D3) [Vitamin D3 (125 MCG = 5,000 IU)] 50 mcg PO QAM 05/09/22 [History] Omeprazole 20 mg PO HS 05/09/22 [History] Calcium Carbonate [Calcium] 600 mg PO BID 10/19/22 [History] Letrozole [Femara] 2.5 mg PO QAM 10/19/22 [History] Vit C/E/Zn/Coppr/Lutein/Zeaxan [Preservision Areds 2 Softgel] 1 cap PO BID 10/19/22 [History] Ferrous Sulfate [Iron (65 MG Elemental)] 325 mg PO QAM 01/16/23 [History] Magnesium 250 mg PO QAM 01/16/23 [History] Ondansetron [Zofran] 4 mg PO BID 01/16/23 [History] Psyllium Husk [Metamucil] 3 cap PO QAM 01/16/23 [History] Docusate [Colace] 100 mg PO BID #30 capsule 01/23/23 [Rx] HYDROcodone/APAP 5-325MG [[place] 5-325] 1 tab PO Q6HR PRN 3 Days #12 tab 01/23/23 [Rx] Follow up Appointment(s)/Referral(s): Freedom Louie MD [Medical Doctor] - 1 Week Arturo Collado DO [Primary Care Provider] - As Needed [facility] Visiting Nurse, [NON-STAFF] - 1-2 Days Activity/Diet/Wound Care/Special Instructions: No driving while taking [place] No lifting over 10 pounds You may shower. No soaking or tub baths for 2 weeks Very light activity until you are reevaluated at your follow up appointment with your surgeon Keep a log of DMITRI drain output and bring with you to your follow-up appointment Milk/strip drains 2-3 times a day Discharge Disposition: HOME WITH HOME HEALTH SERVICES
--- NOTE | 2023-01-23 13:46 | P.PN ---
Subjective Progress Note Date: 01/23/23 - History of Present Illness (01/21/23) This is a 77-year-old female admitted with bilateral breast cancer status post left modified radical mastectomy with wire localization left axillary lymph node, right simple mastectomy, right sentinel lymph node biopsy, in a patient with past medical history significant for diabetes mellitus, gastroesophageal reflux disease, hypertension, hyperlipidemia, osteoarthritis, diabetes mellitus and multiple other medical issues.Tolerated procedure well. Denies chest pain, palpitations or shortness of breath. Reports surgical discomfort. Tolerating clear diet without nausea or vomiting, requesting diet advancement. Afebrile. 01/22/2023 reports better pain control this morning. Pain management. Tolerating regular diet with no nausea vomiting or diarrhea. Afebrile. Labs pending. Denies chest pain, palpitations or shortness of breath. Maintaining O2 sats in the 90s on room air. 01/23/23 Weaned off of IV Dilaudid yesterday, pain controlled on oral opioids. Afebrile, normal WBC, maintaining O2 sats in the high 90s on room air. Denies chest pain, palpitations or shortness of breath. Objective - Vital Signs Vital signs: Vital Signs Temp 98 F 01/23/23 08:20 Pulse 81 01/23/23 08:20 Resp 16 01/23/23 08:20 BP 134/76 01/23/23 08:20 Pulse Ox 97 01/23/23 08:20 FiO2 Intake & Output 01/22/23 01/23/23 01/23/23 18:59 06:59 18:59 Intake Total 450 236 Output Total 205 190 Balance 245 -190 236 Intake: Intake, IV Titration 450 Amount D5-0.45% NaCl with KCl 400 20Meq/l 1,000 ml @ 50 mls /hr IV .Q20H SD Rx#: [id number] ceFAZolin 2 gm In Sodium 50 Chloride 0.9% 50 ml @ 100 mls/hr IVPB Q8H SD Rx#: [id number] Oral 236 Output: Drainage 205 190 Left Chest 90 110 Right Chest 115 80 Other: Voiding Method Bedpan # Voids 3 - Exam GENERAL: Alert and oriented x3, NAD. Sitting up in chair. CARDIOVASCULAR: S1 and S2 present. No murmurs, rubs, or gallops. PULMONARY: Unlabored , equal air entry. Chest is clear to auscultation, bilateral bases diminished. ABDOMEN: Soft, nontender, nondistended, +BS. -EXTREMITIES: No cyanosis, clubbing, or pedal edema. NEUROLOGICAL: Gross neurological examination did not reveal any focal deficits. SKIN: No rashes. Warm and dry. - Labs CBC & Chem 7: 01/23/23 05:36 Labs: Abnormal Lab Results - Last 24 Hours (Table) 01/22/23 01/22/23 01/23/23 Range/Units 17:04 20:50 05:36 RBC 3.15 L (4.10-5.20) X 10*6/uL Hgb 8.5 L (12.0-15.0) d/dL Hct 28.3 L (37.2-46.3) % MCHC 30.0 L (32.0-37.0) d/dL POC Glucose (mg/dL) 112 H 148 H (70-110) mg/dL 01/23/23 Range/Units 06:02 RBC (4.10-5.20) X 10*6/uL Hgb (12.0-15.0) d/dL Hct (37.2-46.3) % MCHC (32.0-37.0) d/dL POC Glucose (mg/dL) 116 H (70-110) mg/dL Assessment and Plan Assessment: Bilateral breast cancer status post left modified radical mastectomy with wire localization left axillary lymph node, right simple mastectomy, right sentinel lymph node biopsy Diabetes mellitus, A1c 5.6 Hypertension Hyperlipidemia History of osteoarthritis Hypothyroidism Morbid obesity BMI 53 Plan: Continue on current medication regime ,monitoring and symptomatic treatment. Discharge planning in progress as per primary today. Maintaining aggressive pulmonary toileting with incentive spirometer reinforced. Follow-up with PCP in one week. The impression and plan of care has been dictated as directed. : I performed a history and examination of this patient, discussed the same with the dictator. I agree with the dictator's note ,documented as a scribe. Any additional findings or plans will be noted.
== END 2023-01-23 11:42 | disposition home health service (06) ==
LOC: OR 06:15 → 6NMEDSUR 15:22 → OR 01-21 13:29
PROVIDERS: ADMIT Surgery; ATTEND Surgery
DX: C50.911 Malignant neoplasm of unspecified site of right female breast (principal); C50.912 Malignant neoplasm of unspecified site of left female breast; C77.3 Secondary and unspecified malignant neoplasm of axilla and upper limb lymph nodes; E11.9 Type 2 diabetes mellitus without complications; K21.9 Gastro-esophageal reflux disease without esophagitis; E78.5 Hyperlipidemia, unspecified; I10 Essential (primary) hypertension; E03.9 Hypothyroidism, unspecified; M19.90 Unspecified osteoarthritis, unspecified site; E66.01 Morbid (severe) obesity due to excess calories; Z68.43 Body mass index [BMI] 50.0-59.9, adult; Z79.899 Other long term (current) drug therapy; Z88.1 Allergy status to other antibiotic agents
CPT/HCPCS: 38900; 19307; 19303; 38525; 97530; 97162; 97166; 85025; 85027; 88342; 88307; 88309; 88341; 83036; 19285; 38792; G0378 ×3; C1819; A9520; J2250; J0330; J1644 ×5; J1100; J0690 ×4; J2405; J2001 ×2; J3010; J1170 ×4; J2704; Q9968

== ENCOUNTER → 2023-06-26 | Outpatient (CLI) | payer MEDICARE ==
--- NOTE | 2023-06-26 19:28 | BD ---
EXAMINATION TYPE: Axial Bone Density DATE OF EXAM: 06/26/2023 PT IN A WHEELCHAIR CLINICAL HISTORY: 77 years old Female. ICD-10 CODE: C50.812 BR CANCER Height: 56.3 Weight: 229 FRAX RISK QUESTIONS: secondary osteoporosis 3. Menopause before 45: yes, total hyster. in 1987 RISK FACTORS HISTORY OF: hx of left breast cance, 2022, lumpectomy with sen node, and treatment hx of knee surgery, TKRs bilaterally hx of leeanne band cannot walk, in a wheelchair MEDICATIONS: cholesterol meds, vit d and calcium and Anastrozole for breast cancer, hx of radiation, EXAM MEASUREMENTS: Bone mineral densitometry was performed using the Cards [employer] System. Bone mineral density as measured about the Lumbar spine is: ----- L1-L4(G/cm2): 0.884 T Score Values are as follows: ----- L1: -2.4 ----- L2: -2.3 ----- L3: -2.4 ----- L4: -2.9 ----- L1-L4: 2.5 Z Score Values are as follows: ----- L1: -1.8 ----- L2: -1.7 ----- L3: -1.8 ----- L4: -2.3 ----- L1-L4: -1.9 Bone mineral density has: Decreased -14.6% since study of: 08.27.2000 Bone mineral density about the R hip (g/cm2): 0.699 Bone mineral density about the L hip (g/cm2): 0.696 T Score values are as follows: -----R Neck: -2.9 -----L Neck: -2.4 -----R Total: -2.4 -----L Total: -2.5 Z Score values are as follows: -----R Neck: -1.7 -----L Neck: -1.2 -----R Total: -1.5 -----L Total: -1.5 Bone mineral density has: Decreased -17.1% since study of: 08.27.2000 FRAX%s: The graph provided illustrates a 16.3% chance for a major osteoporotic fx and a 5.5% chance f or the hips probability for fx in 10 years time. IMPRESSION: Osteoporosis (T Score less than -2.5). There is increased fracture risk and therapy is usually indicated based on age. Re-Screen 1-2 years. NOTE: T-SCORE=SD OF THE YOUNG ADULT MEAN.
== END | disposition home or self-care (01) ==
LOC: RADBDWWP 10:43
PROVIDERS: ATTEND Internal Medicine Hematology & Oncology
DX: C50.812 Malignant neoplasm of overlapping sites of left female breast (principal); C50.811 Malignant neoplasm of overlapping sites of right female breast; M85.89 Other specified disorders of bone density and structure, multiple sites; M81.0 Age-related osteoporosis without current pathological fracture; M19.90 Unspecified osteoarthritis, unspecified site; I10 Essential (primary) hypertension; Z78.0 Asymptomatic menopausal state
CPT/HCPCS: 77080

== ENCOUNTER → 2023-07-28 | Outpatient (CLI) | payer MEDICARE ==
[2023-07-28 17:15] LABS: ALT 10 U/L (8-44); AST 24 U/L (13-35); Albumin 4.2 g/dL (3.8-4.9); Albumin/Globulin Ratio 1.45 Ratio (1.60-3.17); Alkaline Phosphatase 189 U/L (41-126); Blood Urea Nitrogen 28.8 mg/dL (9.0-27.0); Carbon Dioxide 26.3 mmol/L (21.6-31.8); Chloride 106 mmol/L (96-109); Chol/HDL Ratio 4.13 Ratio; Globulin 2.9 g/dL (1.6-3.3); Glucose 100 mg/dL (70-110); LDL Cholesterol,Calculated 88.8 mg/dL (0.0-131.0); Potassium 4.2 mmol/L (3.5-5.5); Sodium 145 mmol/L (135-145); T4, Free (Free Thyroxine) 1.09 ng/dL (0.80-1.80); Total Bilirubin 0.3 mg/dL (0.3-1.2); Total Protein 7.1 g/dL (6.2-8.2)
[2023-07-28 17:36] LABS: Basophils # (A) 0.04 X 10*3/uL (0.00-0.10); Basophils % (A) 0.6 %; Eosinophils # (A) 0.15 X 10*3/uL (0.04-0.35); Eosinophils % (A) 2.4 %; HCT 43.5 % (37.2-46.3); Lymphocytes # (A) 0.83 X 10*3/uL (0.90-5.00); MCH 27.1 pg (27.0-32.0); MCHC 29.9 g/dL (32.0-37.0); MCV 90.6 FL (80.0-97.0); Mean Platelet Volume 10.2 FL (9.5-12.2); Monocytes # (A) 0.35 X 10*3/uL (0.20-1.00); Monocytes % (A) 5.5 %; NRBC Per 100 WBC 0 X 10*3/uL (0.00-0.01); Neutrophils # (A) 4.96 X 10*3/uL (1.80-7.70); Neutrophils % (A) 77.9 %; Platelet Count 263 X 10*3/uL (140-440); RDW 16.9 % (11.5-14.5); WBC 6.37 X 10*3/uL (4.50-10.00)
== END | disposition home or self-care (01) ==
LOC: LABWHC1 08:32
PROVIDERS: ATTEND Family Medicine
DX: Z00.00 Encounter for general adult medical examination without abnormal findings (principal); K21.9 Gastro-esophageal reflux disease without esophagitis; I12.9 Hypertensive chronic kidney disease with stage 1 through stage 4 chronic kidney disease, or unspecified chronic kidney disease; N18.9 Chronic kidney disease, unspecified
CPT/HCPCS: 36415; 80053; 80061; 83036; 84439; 84443; 85025

== ENCOUNTER → 2024-02-17 | Outpatient (CLI) | payer MEDICARE ==
[2024-02-17 15:59] LABS: Basophils # (A) 0.02 X 10*3/uL (0.00-0.10); Basophils % (A) 0.3 %; Eosinophils # (A) 0.16 X 10*3/uL (0.04-0.35); Eosinophils % (A) 2.4 %; HCT 39.8 % (37.2-46.3); HGB 12.2 g/dL (12.0-15.0); Lymphocytes # (A) 1.05 X 10*3/uL (0.90-5.00); Lymphocytes % (A) 15.5 %; MCHC 30.7 g/dL (32.0-37.0); MCV 88.1 FL (80.0-97.0); Mean Platelet Volume 10.8 FL (9.5-12.2); Monocytes # (A) 0.37 X 10*3/uL (0.20-1.00); Monocytes % (A) 5.4 %; NRBC Per 100 WBC 0 X 10*3/uL (0.00-0.01); Neutrophils # (A) 5.17 X 10*3/uL (1.80-7.70); Neutrophils % (A) 76.1 %; Platelet Count 222 X 10*3/uL (140-440); RBC 4.52 X 10*6/uL (4.10-5.20); RDW 15.5 % (11.5-14.5); WBC 6.79 X 10*3/uL (4.50-10.00)
[2024-02-17 17:35] LABS: ALT 10 U/L (8-44); AST 21 U/L (13-35); Albumin 3.8 g/dL (3.8-4.9); Albumin/Globulin Ratio 1.58 Ratio (1.60-3.17); Alkaline Phosphatase 157 U/L (41-126); BUN/Creat Ratio 20.78 Ratio (12.00-20.00); Blood Urea Nitrogen 18.7 mg/dL (9.0-27.0); Calcium 9.3 mg/dL (8.7-10.3); Carbon Dioxide 24.3 mmol/L (21.6-31.8); Chloride 106 mmol/L (96-109); Chol/HDL Ratio 4.04 Ratio; Globulin 2.4 g/dL (1.6-3.3); Glucose 92 mg/dL (70-110); LDL Cholesterol,Calculated 70.1 mg/dL (0.0-131.0); Potassium 4.3 mmol/L (3.5-5.5); Sodium 142 mmol/L (135-145); Total Bilirubin 0.3 mg/dL (0.3-1.2); Total Protein 6.2 g/dL (6.2-8.2)
== END | disposition home or self-care (01) ==
LOC: LABWHC1 09:16
PROVIDERS: ATTEND Family Medicine
CPT/HCPCS: 36415; 80053; 80061; 83036; 85025

== ENCOUNTER → 2024-03-18 | Outpatient (CLI) | payer MEDICARE ==
--- NOTE | 2024-03-18 13:10 | XR ---
EXAMINATION TYPE: XR cervical spine limited DATE OF EXAM: 03/18/2024 11:14 AM COMPARISON: 05/24/1959 CLINICAL INDICATION: Female, 78 years old with history of C50.412 MALIG NEOPLASM OF UPPER-OUTER QUADR ANT OF; PHH TECHNIQUE: The cervical spine was imaged in frontal, lateral, and odontoid. FINDINGS: The osseous structures show normal alignment without evidence of an acute fracture. There are osteoph ytes noted throughout the cervical spine on the anterior and lateral aspects of the vertebral bodies. The intervertebral disk spaces are narrowed at multiple levels Pedicles are intact. Soft tissues ar e within normal limits. The odontoid appears intact. IMPRESSION: 1. No fracture or dislocation. 2. Moderate degenerative disc disease changes of the cervical spine. [facility], , 03/18/2024 1:07 PM
== END | disposition home or self-care (01) ==
LOC: RADXRMAIN 10:37
PROVIDERS: ATTEND Radiology Radiation Oncology
DX: C50.412 Malignant neoplasm of upper-outer quadrant of left female breast (principal); C50.411 Malignant neoplasm of upper-outer quadrant of right female breast; M50.30 Other cervical disc degeneration, unspecified cervical region
CPT/HCPCS: 72040

== ENCOUNTER → 2024-08-23 | Outpatient (CLI) | payer MEDICARE ==
[2024-08-23 15:40] LABS: Basophils # (A) 0.03 X 10*3/uL (0.00-0.10); Basophils % (A) 0.4 %; Eosinophils # (A) 0.15 X 10*3/uL (0.04-0.35); HCT 39.1 % (37.2-46.3); HGB 11.7 g/dL (12.0-15.0); Lymphocytes # (A) 1.45 X 10*3/uL (0.90-5.00); Lymphocytes % (A) 19.5 %; MCH 28.2 pg (27.0-32.0); MCHC 29.9 g/dL (32.0-37.0); MCV 94.2 FL (80.0-97.0); Mean Platelet Volume 10.8 FL (9.5-12.2); Monocytes % (A) 6.7 %; NRBC Per 100 WBC 0 X 10*3/uL (0.00-0.01); Neutrophils # (A) 5.29 X 10*3/uL (1.80-7.70); Neutrophils % (A) 71.3 %; Platelet Count 219 X 10*3/uL (140-440); RBC 4.15 X 10*6/uL (4.10-5.20); RDW 14.3 % (11.5-14.5); WBC 7.43 X 10*3/uL (4.50-10.00)
[2024-08-23 15:59] LABS: ALT 10 U/L (8-44); AST 22 U/L (13-35); Albumin 3.9 g/dL (3.8-4.9); Albumin/Globulin Ratio 1.44 Ratio (1.60-3.17); Alkaline Phosphatase 151 U/L (41-126); Blood Urea Nitrogen 26.7 mg/dL (9.0-27.0); Calcium 9.5 mg/dL (8.7-10.3); Carbon Dioxide 25.4 mmol/L (21.6-31.8); Chloride 104 mmol/L (96-109); Globulin 2.7 g/dL (1.6-3.3); Glucose 91 mg/dL (70-110); Sodium 143 mmol/L (135-145); Total Bilirubin 0.2 mg/dL (0.3-1.2); Total Protein 6.6 g/dL (6.2-8.2)
== END | disposition home or self-care (01) ==
LOC: LABWHC1 09:28
PROVIDERS: ATTEND Internal Medicine Hematology & Oncology
DX: Z00.00 Encounter for general adult medical examination without abnormal findings (principal); N18.9 Chronic kidney disease, unspecified; I27.20 Pulmonary hypertension, unspecified
CPT/HCPCS: 36415; 80053; 85025